=== PATIENT | male | born 1975 | race Hispanic/Latino ===

== ENCOUNTER 2019-05-04 13:02 | Emergency (ER) | payer SELFPAY ==
[2019-05-04] MEDS ORDERED: DEXAMETHASONE 4 MG/ML VIAL ONE (13:29)
[2019-05-04 13:40] LABS: Absolute Lymphocytes (CBC) 1.5 K/uL (0.7-4.9); Basophils % 0.6 % (0-1.3); Eosinophils % 3.1 % (0-4.4); Hematocrit 37.3 % (39.6-49.0); Lymphocytes % 17.7 % (15.3-44.8); MPV 8.3 fL (7.6-11.3); Monocytes % 7.2 % (3.3-12.3); RBC Red Blood Cell Count 4.91 M/uL (4.33-5.43)
[2019-05-04 13:48] LABS: BUN Blood Urea Nitrogen 9 mg/dL (7-18); Bicarbonate 27 mmol/L (21-32); Glucose Level 110 mg/dL (74-106); Sodium Level 138 mmol/L (136-145)
--- NOTE | 2019-05-04 14:20 | RAD REPORT ---
EXAM DESCRIPTION: CT - Soft Tissue Neck W/Contr - 05/04/2019 2:07 pm CLINICAL HISTORY: Sore throat, right-sided neck pain TECHNIQUE: During dynamic enhancement using 100 milliliters nonionic IV contrast, axial 5 millimeter thick images of the neck were obtained. All CT scans are performed using dose optimization technique as appropriate and may include automated exposure control or mA/KV adjustment according to patient size. FINDINGS: Intracranial portion the examination is unremarkable. No globe or orbital content abnormal ity. Mastoid air cells and paranasal sinuses are clear. There is significant right deviation of the n karly septum narrowing the anterior margin right nasal passage. The right tonsil is enlarged. The superior aspect of the right tonsil contains a 14 millimeter rounde d low-density focus. Left tonsil is grossly normal in size. No tongue base abnormality. Epiglottis is normal. Pharyngeal soft tissues on the right are mildly prominent. Bilateral nonspecific cervical lymph nodes are present up to 12 mm in short axis dimension. Most lymp h nodes have a less than 1 centimeter short axis dimension. The parotid, submandibular and thyroid gland tissues are present. No vocal cord abnormality. No bone or vascular abnormality. IMPRESSION: Approximately 14 millimeter sized tonsillar abscess in the superior aspect of the right tonsil. Bilateral reactive type cervical lymphadenopathy.
--- NOTE | 2019-05-04 15:12 | ER ---
Nurse's Notes [facility] Name: John Hendrcikson Age: 44 yrs Sex: Male : 1975 Arrival Date: 05/04/2019 Time: 13:04 Bed 14 Private MD: Diagnosis: Peritonsillar abscess Presentation: 05/04 13:04 Presenting complaint: Patient states: Sore throat for 3 days with more swelling to aj right side of throat. Transition of care: patient was not received from another setting of care. Onset of symptoms was May 01, 2019. Risk Assessment: Do you want to hurt yourself or someone else? Patient reports no desire to harm self or others. Initial Sepsis Screen: Does the patient meet any 2 criteria? No. Patient's initial sepsis screen is negative. Does the patient have a suspected source of infection? No. Patient's initial sepsis screen is negative. Care prior to arrival: None. 13:04 Method Of Arrival: EMS: [facility] 13:04 Acuity: JASVIR 3 aj Triage Assessment: 13:05 General: Appears in no apparent distress. uncomfortable, Behavior is calm, cooperative, aj appropriate for age. Pain: Complains of pain in left aspect of posterior pharynx and right aspect of posterior pharynx. EENT: Throat on right. Respiratory: Airway is patent Respiratory effort is even, unlabored, Respiratory pattern is regular, symmetrical. Derm: Skin is intact, is healthy with good turgor, Skin is pink, warm \T\ dry. normal. Historical: - Allergies: 13:05 Sulfa (Sulfonamide Antibiotics); aj - Immunization history:: Adult Immunizations up to date. - Social history:: Smoking status: Patient/guardian denies using tobacco. - Ebola Screening: : Patient negative for fever greater than or equal to 101.5 degrees Fahrenheit, and additional compatible Ebola Virus Disease symptoms Patient denies exposure to infectious person Patient denies travel to an Ebola-affected area in the 21 days before illness onset No symptoms or risks identified at this time. Screenin:31 Abuse screen: Denies threats or abuse. Denies injuries from another. Nutritional aj screening: No deficits noted. Tuberculosis screening: No symptoms or risk factors identified. Fall Risk None identified. Assessment: 13:31 Reassessment: Patient appears in no apparent distress at this time. No changes from aj previously documented assessment. Patient and/or family updated on plan of care and expected duration. Pain level reassessed. Patient is alert, oriented x 3, equal unlabored respirations, skin warm/dry/pink. Vital Signs: 13:05 BP 130 / 84; Pulse 83; Resp 16; Temp 98.6; Pulse Ox 98% on R/A; Weight 97.52 kg; Height aj 6 ft. 0 in. (182.88 cm); 15:10 BP 124 / 88; Pulse 78; Resp 16; Temp 98.6; Pulse Ox 99% ; aj 18:15 BP 131 / 78; Pulse 81; Resp 16; Pulse Ox 99% on R/A; aj 13:05 Body Mass Index 29.16 (97.52 kg, 182.88 cm) aj ED Course: 13:04 Patient arrived in ED. aj 13:05 Triage completed. aj 13:05 Arm band placed on left wrist. Patient placed in an exam room, on a stretcher, on pulse aj oximetry. 13:06 Allyson Medrano [facility]C [facility]. kb 13:07 Shorty Neely MD is Attending Physician. kb 13:11 Marlin Young, TIFFANY is Primary Nurse. aj 13:19 Radiology exam delayed due to lab results not completed at this time. (BUN/Creatinine). mw3 13:31 Patient has correct armband on for positive identification. aj 13:32 Inserted saline lock: 20 gauge in right wrist, using aseptic technique. Blood collected.aj 14:08 CT completed. Patient tolerated procedure well. Patient moved back from CT. bq 14:09 Soft Tissue Neck W/Contr CT In Process Unspecified. EDMS 14:44 initiated a transfer with Mabel from the [facility]. eb 15:02 connected the ENT components engineer for [facility] with Allyson BATTERY CONTAINER INSPECTOR for patient transfer eb constultation. 15:09 connected the network support engineer components engineer for [facility] with Allyson THOMAS for patient transfer eb consultation. 17:49 administrative approval given by Mabel Burroughs RN transfer coord/ patient has been eb accepted by Dr. Lind at the [facility] [address] [address] Bed 9/ report to be called to [phone]/. 18:15 Report given to Alexandria ALLEN. aj 18:15 No provider procedures requiring assistance completed. Patient transferred, IV remains aj in place. Administered Medications: 13:30 Drug: Decadron - Dexamethasone 10 mg Route: IVP; Site: right wrist; aj 16:17 Follow up: Response: Pain is decreased aj 15:42 Drug: NS 0.9% 1000 ml Route: IV; Rate: 125 ml/hr; Site: right wrist; aj 15:43 Drug: Rocephin 1 grams Route: IV; Rate: calculated rate; Site: right wrist; aj 15:45 Follow up: IV Status: Completed infusion; IV Intake: 10ml aj 15:43 Drug: Clindamycin 900 mg Route: IVPB; Infused Over: 30 mins; Site: right wrist; aj 16:18 Follow up: Response: No adverse reaction; IV Status: Completed infusion; IV Intake: 50mlaj Intake: 15:45 IV: 10ml; Total: 10ml. aj 16:18 IV: 50ml; Total: 60ml. aj Outcome: 15:11 ER care complete, transfer ordered by . kb 18:50 Transferred by ground EMS to [facility], Transfer form completed. aj X-rays sent w/ patient. 18:50 Condition: good 18:50 Discharge instructions given to patient, EMS, Instructed on the need for transfer. 18:51 Patient left the ED. aj Signatures: Dispatcher [employer] Allyson Negrete, MARIA EUGENIA CEDEÑOP-Marlin Sheth, RN RN Rody Sheriff Elizabeth eb Willis, Michelle mw3
--- NOTE | 2019-05-04 15:12 | EDPHYS ---
Physician Documentation [facility] Name: John Hendrickson Age: 44 yrs Sex: Male : 1975 Arrival Date: 05/04/2019 Time: 13:04 Bed 14 Private MD: ED Physician Shorty Neely HPI: 05/04 13:20 This 44 yrs old Male presents to ER via EMS with complaints of Sore Throat. kb 13:20 The patient presents with sore throat. The patient describes throat pain as constant. kb Onset: The symptoms/episode began/occurred 3 day(s) ago. Severity of symptoms: At their worst the symptoms were moderate, in the emergency department the symptoms are unchanged. Modifying factors: The symptoms are alleviated by nothing, the symptoms are aggravated by swallowing, Patient's oral intake status: good Denies contact with similarly ill indivduals. Associated signs and symptoms: Pertinent positives: earache, Sore throat. The patient has not experienced similar symptoms in the past. The patient has not recently seen a physician. Historical: - Allergies: 13:05 Sulfa (Sulfonamide Antibiotics); aj - Immunization history:: Adult Immunizations up to date. - Social history:: Smoking status: Patient/guardian denies using tobacco. - Ebola Screening: : Patient negative for fever greater than or equal to 101.5 degrees Fahrenheit, and additional compatible Ebola Virus Disease symptoms Patient denies exposure to infectious person Patient denies travel to an Ebola-affected area in the 21 days before illness onset No symptoms or risks identified at this time. ROS: 13:12 Constitutional: Negative for fever, chills, and weight loss, Cardiovascular: Negative kb for chest pain, palpitations, and edema, Respiratory: Negative for shortness of breath, cough, wheezing, and pleuritic chest pain, Abdomen/GI: Negative for abdominal pain, nausea, vomiting, diarrhea, and constipation, MS/Extremity: Negative for injury and deformity, Skin: Negative for injury, rash, and discoloration, Neuro: Negative for headache, weakness, numbness, tingling, and seizure. 13:12 ENT: Positive for ear pain, sore throat. Exam: 13:12 Constitutional: This is a well developed, well nourished patient who is awake, alert, kb and in no acute distress. Head/Face: Normocephalic, atraumatic. Chest/axilla: Normal chest wall appearance and motion. Nontender with no deformity. No lesions are appreciated. Cardiovascular: Regular rate and rhythm with a normal S1 and S2. No gallops, murmurs, or rubs. Normal PMI, no JVD. No pulse deficits. Respiratory: Lungs have equal breath sounds bilaterally, clear to auscultation and percussion. No rales, rhonchi or wheezes noted. No increased work of breathing, no retractions or nasal flaring. Abdomen/GI: Soft, non-tender, with normal bowel sounds. No distension or tympany. No guarding or rebound. No evidence of tenderness throughout. Skin: Warm, dry with normal turgor. Normal color with no rashes, no lesions, and no evidence of cellulitis. MS/ Extremity: Pulses equal, no cyanosis. Neurovascular intact. Full, normal range of motion. Neuro: Awake and alert, GCS 15, oriented to person, place, time, and situation. Cranial nerves II-XII grossly intact. Motor strength 5/5 in all extremities. Sensory grossly intact. Cerebellar exam normal. Normal gait. 13:12 ENT: External ear(s): are unremarkable, Ear canal(s): are normal, TM's: are normal, Nose: is normal, Mouth: Posterior pharynx: Airway: normal, no evidence of obstruction, Tonsils: enlarged on the right, with erythema, Uvula: normal, midline, swelling, that is moderate, erythema, that is moderate, exudate, is not appreciated, Dental exam: dental caries, diffusely. Vital Signs: 13:05 BP 130 / 84; Pulse 83; Resp 16; Temp 98.6; Pulse Ox 98% on R/A; Weight 97.52 kg; Height aj 6 ft. 0 in. (182.88 cm); 15:10 BP 124 / 88; Pulse 78; Resp 16; Temp 98.6; Pulse Ox 99% ; aj 18:15 BP 131 / 78; Pulse 81; Resp 16; Pulse Ox 99% on R/A; aj 13:05 Body Mass Index 29.16 (97.52 kg, 182.88 cm) aj MDM: 13:07 Patient medically screened. corrine 13:20 Data reviewed: vital signs, nurses notes. Data interpreted: Pulse oximetry: on room air kb is 98 %. Interpretation: normal. 14:42 Counseling: I had a detailed discussion with the patient and/or guardian regarding: the kb historical points, exam findings, and any diagnostic results supporting the discharge/admit diagnosis, lab results, radiology results, the need to transfer to another facility, for higher level of care, [facility]. ED course: Pt educated on diagnosis and need for transfer to facility that has ENT available. Verbal understanding received. . 15:08 ED course: Pt accepted by ENT at [facility]. Awaiting call from business objects consultant. . kb 15:11 ED course: Dr Lind accepts pt for transfer. . kb 05/04 13:08 Order name: CBC with Diff; Complete Time: 13:46 kb 05/04 13:08 Order name: Basic Metabolic Panel; Complete Time: 13:54 kb 05/04 13:08 Order name: Soft Tissue Neck W/Contr CT; Complete Time: 14:23 kb 05/04 13:08 Order name: Strep; Complete Time: 14:08 kb 05/04 14:12 Order name: Throat Culture EDLA 05/04 13:08 Order name: IV Start; Complete Time: 16:17 kb Administered Medications: 13:30 Drug: Decadron - Dexamethasone 10 mg Route: IVP; Site: right wrist; aj 16:17 Follow up: Response: Pain is decreased aj 15:42 Drug: NS 0.9% 1000 ml Route: IV; Rate: 125 ml/hr; Site: right wrist; aj 15:43 Drug: Rocephin 1 grams Route: IV; Rate: calculated rate; Site: right wrist; aj 15:45 Follow up: IV Status: Completed infusion; IV Intake: 10ml aj 15:43 Drug: Clindamycin 900 mg Route: IVPB; Infused Over: 30 mins; Site: right wrist; aj 16:18 Follow up: Response: No adverse reaction; IV Status: Completed infusion; IV Intake: 50mlaj Disposition: 05/04/19 15:[address] [facility]. Diagnosis is Peritonsillar abscess. - Reason for transfer: Higher level of care. - Accepting physician is Dr Lind. - Condition is Stable. - Problem is new. - Symptoms are unchanged. Addendum: 05/06/2019 09:42 Co-signature as Attending Physician, Shorty Chin MD I agree with the assessment and c boles plan of care. Signatures: Dispatcher [employer] Allyson Negrete, GAL-Juanjo CEDEÑOP-Marlin Sheth, RN RN Shorty Awad MD MD cha Corrections: (The following items were deleted from the chart) 05/04 14:27 13:12 ENT: External ear(s): are unremarkable, Ear canal(s): are normal, TM's: are kb normal, Nose: is normal, Mouth: Posterior pharynx: Airway: normal, no evidence of obstruction, swelling, that is moderate, erythema, that is moderate, exudate, is not appreciated, Dental exam: dental caries, diffusely, kb 18:51 15:11 05/04/2019 15:[address] [facility]. Diagnosis is aj Peritonsillar abscess. Reason for transfer: Higher level of care. Accepting physician is Dr Lind. Condition is Stable. Problem is new. Symptoms are unchanged. kb
[2019-05-04] MEDS ORDERED: NA CHLORIDE 0.9% 1,000 ML ONE (15:52)
[2019-05-04] MEDS ORDERED: CEFTRIAXONE/SWI 1gm 1 GM/10 ML SYR ONE (15:52)
[2019-05-04] MEDS ORDERED: CLINDAMYCIN 900MG/D5W 900 MG/50 ML IVPB IV ONE (15:52)
== END 2019-05-04 18:51 | disposition short-term general hospital (02) ==
LOC: ER 13:02
DX: J36 Peritonsillar abscess (principal); Z88.2 Allergy status to sulfonamides
CPT/HCPCS: 36415; 70491; 80048; 85025; 87070; 87081; 96365; 96375; 99285; J0696; J7030; Q9967

== ENCOUNTER 2021-11-20 13:47 | Emergency (ER) | payer SELFPAY ==
--- OUTSIDE RECORDS SUMMARY | 2021-11-20 13:52 | XMS REPORT | Continuity of Care Document ---
:1975 Author Organization [facility] t Address [address] [place] [address] Care Team Providers Name Role Phone PCP, DOES NOT HAVE A Primary Care Physician Unavailable CHRISTIE Attending Clinician Unavailable CHRISTIE Attending Clinician Unavailable Attending Clinician Unavailable Bingham DO Attending Clinician Tawanda THOMPSON, K.H. Attending Clinician TAWANDA K.H. Attending Clinician Unavailable AMMON DAO Attending Clinician Unavailable BINGHAM Admitting Clinician Unavailable Quinn NEFFHLakesha Admitting Clinician Unavailable AMMON DAO Admitting Clinician Unavailable Problems Condition Condition Condition Status Onset Resolution Last Treating Co mments Source Name Details Category Date Date Treatment Clinician Date Chest pain Chest pain Disease Active U nivers 9-27 ity of 00:00: [address] Obesity Obesity Disease Active Univers (BMI (BMI 9-27 ity of 30-39.9) 30-39.9) 00:00: [address] Branch Essential Essential Disease Active Uni vers hypertensi hypertensi - it y of on on 00:: [address] Family Family Disease Active Univers history of history of 08-09 it y of early CAD early CAD 00:00: [address] Branch Allergies, Adverse Reactions, Alerts Allergy Allergy Status Severity Reaction(s) Onset Inactive Treating Comm ents Source Name Type Date Date Clinician SULFA Drug Active Hives 2019-11 Univers (SULFONA Class 2-28 ity of MIDE 00:00: [place] ANTIBIOT Medical [facility]) Branch Sulfa Propensi Active Hives 2019-11 Univers (Sulfona ty to 2-28 ity of mide adverse 00:00: [place] Antibiot reaction 00 Medica l ics) s Branch Vancomyc Propensi Active Hives Univer s in ty to 4-09 ity of adverse 00:00: [place] reaction 00 Medical s Branch VANCOMYC DRUG Active Hives Univers IN INGREDI 4- ity of 00:00: [place] 00 Medical Branch Social History Social Habit Start Date Stop Date Quantity Comments Source Exposure to Unable to assess Univers ity of SARS-CoV-2 [facility] (event) [place] History of Chews Tobacco [facility] tobacco use [facility] Alcohol intake 2021-11-18 2021-11-18 Ex-drinker [facility] 00:00:00 00:00:00 (finding) [facility] Tobacco use and 2021-08-09 2021-08-09 Current user Univers ity of exposure 00:00:00 00:00:00 [facility] Sex Ass[birth year] Universit y of 00:00:00 00:00:00 [facility] Smoking Status Start Date Stop Date Source Never smoker [facility] Medications Ordered Filled Start Stop Current Ordering Indication Dosage Frequency Signature Comments Components Source Medication Medication Date Date Medication? Clinician (SIG) Name Name iopamidol 2020-11- No [id number] 106mL 106 mL, Univers (ISOVUE 11-30 Intravenou ity o f 370-500 mL) 15:15: 15:04 s, ONCE, 1 [place] injection 00 :00 dose, On Medica l 106 mL Elayne Branch 09/30/21 at 0915, Routine ketorolac 2020-11 Yes [id number] 10mg Take 1 U nivers 10 mg 0-27 tablet by ity of tablet 00:00: mouth [place] 00 every 6 Medical (six) Branch hours as needed for Pain (scale 7-10). ketorolac 2020-11 Yes [id number] 10mg Take 1 U nivers 10 mg 0-27 tablet by ity of tablet 00:00: mouth [place] 00 every 6 Medical (six) Branch hours as needed for Pain (scale 7-10). ketorolac 2020-11 Yes [id number] 10mg Take 1 U nivers 10 mg 0-27 tablet by ity of tablet 00:00: mouth [place] 00 every 6 Medical (six) Branch hours as needed for Pain (scale 7-10). ketorolac 2020-11 Yes [id number] 10mg Take 1 U nivers 10 mg 0-27 tablet by ity of tablet 00:00: mouth [place] 00 every 6 Medical (six) Branch hours as needed for Pain (scale 7-10). ketorolac 2020-11 Yes [id number] 10mg Take 1 U nivers 10 mg 0-27 tablet by ity of tablet 00:00: mouth [place] 00 every 6 Medical (six) Branch hours as needed for Pain (scale 7-10). ketorolac 2020-11 Yes [id number] 10mg Take 1 U nivers 10 mg 0-27 tablet by ity of tablet 00:00: mouth [place] 00 every 6 Medical (six) Branch hours as needed for Pain (scale 7-10). lisinopriL Yes [id number] 5mg Take 1 Univers 5 mg tablet 9-29 tablet by ity of 00:00: mouth [place] 00 daily. Medical Branch lisinopriL Yes [id number] 5mg Take 1 Univers 5 mg tablet 9-29 tablet by ity of 00:00: mouth [place] 00 daily. Medical Branch lisinopriL Yes [id number] 5mg Take 1 Univers 5 mg tablet 9-29 tablet by ity of 00:00: mouth [place] 00 daily. Medical Branch lisinopriL Yes [id number] 5mg Take 1 Univers 5 mg tablet 9-29 tablet by ity of 00:00: mouth [place] 00 daily. Medical Branch lisinopriL Yes [id number] 5mg Take 1 Univers 5 mg tablet 9-29 tablet by ity of 00:00: mouth [place] 00 daily. Medical Branch lisinopriL Yes [id number] 5mg Take 1 Univers 5 mg tablet 9-29 tablet by ity of 00:00: mouth [place] 00 daily. Medical Branch ferrous Yes [id number] 1{tbl} Take 1 U nivers fumarate-vi 9-28 tablet by ity of tamin C 200 00:00: mouth [place] mg (65 mg 00 daily. Medical iron)-25 mg Branch TbSR ferrous Yes [id number] 1{tbl} Take 1 U nivers fumarate-vi 9-28 tablet by ity of tamin C 200 00:00: mouth [place] mg (65 mg 00 daily. Medical iron)-25 mg Branch TbSR ferrous Yes [id number] 1{tbl} Take 1 U nivers fumarate-vi 9-28 tablet by ity of tamin C 200 00:00: mouth [place] mg (65 mg 00 daily. Medical iron)-25 mg Branch TbSR ferrous Yes [id number] 1{tbl} Take 1 U nivers fumarate-vi 9-28 tablet by ity of tamin C 200 00:00: mouth [place] mg (65 mg 00 daily. Medical iron)-25 mg Branch TbSR ferrous Yes [id number] 1{tbl} Take 1 U nivers fumarate-vi 9-28 tablet by ity of tamin C 200 00:00: mouth [place] mg (65 mg 00 daily. Medical iron)-25 mg Branch TbSR ferrous Yes [id number] 1{tbl} Take 1 U nivers fumarate-vi 9-28 tablet by ity of tamin C 200 00:00: mouth [place] mg (65 mg 00 daily. Medical iron)-25 mg Branch TbSR Vital Signs Vital Name Observation Time Observation Value Comments Source Heart rate 2021-11-18 17:00:00 55 /min [facility] Respiratory rate 2021-11-18 17:00:00 10 /min [facility] Systolic blood 2021-11-18 17:00:00 140 mm[Hg] [facility] sity of pressure [facility] Diastolic blood 2021-11-18 17:00:00 81 mm[Hg] [facility] pressure [facility] Oxygen saturation in 2021-11-18 16:00:00 95 /min [facility] Arterial blood by [facility] Pulse oximetry Branch Body temperature 2021-11-18 14:36:00 37.11 Racheal [facility] Body weight 2021-11-18 14:36:00 142.883 kg [facility] BMI 2021-11-18 14:36:00 42.72 kg/m2 [facility] Systolic blood 2021-10-04 20:00:00 137 mm[Hg] Univer sity of pressure [facility] Diastolic blood 2021-10-04 20:00:00 73 mm[Hg] [facility] Heart rate 2021-10-04 20:00:00 55 /min [facility] Body temperature 2021-10-04 20:00:00 36.78 Racheal [facility] 2021-10-04 20:00:00 12 /min [facility] Oxygen saturation in 2021-10-04 20:00:00 97 /min [facility] blood by [facility] Pulse oximetry [place] Body weight 2021-10-04 18:38:00 142.883 kg [facility] BMI 2021-10-04 18:38:00 42.72 kg/m2 [facility] Procedures Procedure Date / Time Performing Clinician Source Performed TROPONIN I 2021-11-18 16:38:00 Singer [facility] XR CHEST 1 VW 2021-11-18 15:21:00 Singer [facility] LIPASE 2021-11-18 14:48:00 Singer [facility] MAGNESIUM 2021-11-18 14:48:00 Singer [facility] TROPONIN I 2021-11-18 14:48:00 Singer [facility] COMP. METABOLIC PANEL 2021-11-18 14:48:00 Renetta Bingham [facility] ([id number]) [facility] CBC WITH DIFF 2021-11-18 14:48:00 Singer [facility] PROTHROMBIN TIME / INR 2021-11-18 14:48:[address] [facility] N-TERMINAL PRO-BNP 2021-11-18 14:48:00 Renetta Bingham [facility] CONSENT/REFUSAL FOR 2021-11-18 14:25:48 Doctor Unassigned, No Un [facility] DIAGNOSIS AND TREATMENT Name Medical Branch XR CHEST 1 VW 2021-10-04 19:00:09 [facility] 2021-10-04 18:41:00 Singer [facility] TROPONIN I 2021-10-04 18:41:00 Singer [facility] COMP. METABOLIC PANEL 2021-10-04 18:41:00 Renetta Bingham [facility] ([id number]) Medical [place] CBC WITH DIFF 2021-10-04 18:41:00 Singer [facility] N-TERMINAL PRO-BNP 2021-10-04 18:41:00 Renetta Bingham [facility] CT ANGIOGRAPHY 2021-09-30 20:41:31 Zan Neff [facility] CORONARIES WITH CARDIAC [facility] Branch CALCIUM SCORE NOTICE OF PRIVACY 2021-09-30 14:30:59 Doctor Unassigned, No [facility] PRACTICES Name [facility] CONSENT/REFUSAL FOR 2021-09-30 14:30:39 Doctor Unassigned, No [facility] DIAGNOSIS AND TREATMENT [facility] ASSIGNMENT OF BENEFITS 2021-09-30 14:30:19 Doctor Unassigned, No General acute hospital Encounters Start End Encounter Admission Attending Care Care Encounter Source Date/Time Date/Time Type Type Clinicians Facility Department ID 2021-12-10 2021-12-10 Outpatient R CARLOS EDUARDO SORIANO [facility] [id number] Univers 14:30:00 14:30:00 CARLOS EDUARDO SORIANO [id number] i ty of [facility] 2021-11-18 2021-11-18 Emergency X SINGER [facility] ERT [id number] Univers 08:44:00 11:59:00 RENETTA weeks [facility] 2021-11-18 2021-11-18 Emergency Singer [facility] [id number] Univers 08:44:00 11:59:00 Renetta ALDANA [id number] i ty of [place] 4.2.7.2.686 [facility] [id number] [facility] 084 Branch 2021-10-04 2021-10-04 Emergency X SINGER [facility] ERT [id number] Univers 12:35:00 14:13:00 RENETTA weeks [facility] 2021-10-04 2021-10-04 Emergency Bingham, [facility] [id number] Univers 12:35:00 14:13:00 Renetta ALDANA [id number] i ty of [place] [facility] 4.2.7.2.686 [place] [id number] [facility] 084 Branch 2021-10-01 2021-10-01 [facility] [id number] Univers 00:00:00 00:00:00 Sendil K.HLakesha HEALTH [id number] ity of [place]2.686 [place] [id number] [place] [id number] Branch OFFICE BUILDING 2021-09-30 2021-09-30 Outpatient R TAWANDA [facility] [id number] Univers 08:36:25 23:59:00 SENDIL ity of [facility] 2021-09-30 2021-09-30 [facility] [id number] Univers 08:36:25 23:59:00 Encounter Zan ALDANA [id number] ity of [place] 4.2.7.2.686 [facility] [id number] [facility] 801 Branch 2021-09-30 2021-09-30 Outpatient R TAWANDA [facility] [id number] Univers 09:00:00 09:00:00 SENDIL [id number] ity of [facility] 2021-09-24 2021-09-24 [place] [facility] [id number] Univers 00:00:00 00:00:00 Zan ALDANA [id number] ity of [place] [facility] [id number] [id number] Ms dical [facility] Branch BUILDING 2021-09-23 2021-09-23 [place] [facility] [id number] Univers 00:00:00 00:00:00 Zan ALDANA [id number] ity of [place] [facility] 4.2.7.2.686 [place] [id number] Ms dical NAL 059 Branch [facility] Results Test Description Test Time Test Comments Results Result Comments Source TROPONIN I 2021-11-18 17:25:59 Test Item Value Reference Range Interpretation Comme nts TROPONIN I (test code = 0.002 ng/mL See_Comment [Au tomated message] The 2514731784) system which ge nerated this result tra nsmitted reference range : <=0.034. The reference r parris was not used to int erpret this result as normal/abnormal . SONALI (test code = SONALI) Reference (Normal) Range (defined by the 99th percentile reference limit): <= 0.034 ng/mL Note: Cardiac troponin begins to rise 3-4 hours after the onset of ischemia. Repeat in 4-6 hours if the sample was drawn within 3-4 hours of the onset of the symptom and found normal. Diagnosis of myocardial injury is made with acute changes in cTn concentrations with at least one serial sample above the 99th percentile upper reference limit (URL), taken together with the patient's clinical presentation. Biotin has been reported to cause a negative bias, interpret results relative to patient's use of biotin. Lab Interpretation Normal (test code = 19696-8) [id number] 15:28:21 Test Item Value Reference Interpretation Comments Range TROPONIN I (test 0.025 ng/mL See_Comment [Automated code = 8462348103) message] The system which generated this result transmitted reference range : <=0.034. The reference range was not used to interpret this result as normal/abnormal . SONALI (test code = Reference (Normal) SONALI) Range (defined by the 99th percentile reference limit): <= 0.034 ng/mL Note: Cardiac troponin begins to rise 3-4 hours after the onset of ischemia. Repeat in 4-6 hours if the sample was drawn within 3-4 hours of the onset of the symptom and found normal. Diagnosis of myocardial injury is made with acute changes in cTn concentrations with at least one serial sample above the 99th percentile upper reference limit (URL), taken together with the patient's clinical presentation. Biotin has been reported to cause a negative bias, interpret results relative to patient's use of biotin. Lab Interpretation Normal (test code = 26373-3) [facility] [id number] 15:25:00 Test Item Value Reference Range Interpretation Comments NT-proBNP (test code 101 pg/mL See_Comment [Autom ated = 5231860421) message] The system which generated this result transmitted reference range : <=125. The reference range was not used to interpret this result as normal/abnormal . OSNALI (test code = SONALI) Biotin has been reported to cause a negative bias, interpret results relative to patient's use of biotin. Lab Interpretation Normal (test code = 49877-6) [facility]. METABOLIC PANEL ([id number])2021-11-18 15:17:21 Test Item Value Reference Range Interpretation Comments NA (test code = 135 mmol/L 135-145 5487338180) K (test code = 4.0 mmol/L 3.5-5.0 6910356453) CL (test code = 103 mmol/L 98-108 0244400571) CO2 TOTAL (test code = 26 mmol/L 23-31 4475872490) AGAP (test code = 2-16 6474659720) BUN (test code = 15 mg/dL 7-23 1444796476) GLUCOSE (test code = 124 mg/dL 70-110 H 6069750474) CREATININE (test code = 0.71 mg/dL 0.60-1.25 4784226327) TOTAL BILI (test code = 0.3 mg/dL 0.1-1.0 3799138007) CALCIUM (test code = 8.3 mg/dL 8.6-10.6 L 5228839962) T PROTEIN (test code = 7.4 g/dL 6.3-8.2 3079004932) ALBUMIN (test code = 3.9 g/dL 3.5-5.0 2572501037) ALK PHOS (test code = 136 U/L 34-122 H 5222521816) ALTv (test code = 21 U/L 5-50 1742-6) AST(SGOT) (test code = 23 U/L 13-40 4984141917) eGFR (test code = mL/min/1.73m2 0250129307) SONALI (test code = SONALI) Association of Glomerular Filtration Rate (GFR) and Staging of Kidney Disease* + --+ --+ ------+| GFR (mL/min/1.73 m2) ?| With Kidney Damage ?| ?Without Kidney Damage+ --------+ --------+ +| ?>90 ?| ?Stage one ?| ? Normal ?+ ---+ ---+ -------+| ?60-89 ?| ?Stage two ?| ? Decreased GFR ? + --+ --+ ------+| ?30-59 ?| ?Stage three ?| ? Stage three ? + --+ --+ ------+| ?15-29 ?| ?Stage four ? | ? Stage four ?+ ---+ ---+ -------+| ?<15 (or dialysis) ? ?| ?Stage five ? | ? Stage five ?+ ---+ ---+ -------+ *Each stage assumes the associated GFR level has been in effect for at least three months. ?Stages 1 to 5, with or without kidney disease, indicate chronic kidney disease. Notes: Determination of stages one and two (with eGFR >59mL/min/1.73 m2) requires estimation of kidney damage for at least three months as defined by structural or functional abnormalities of the kidney, manifested by either:Pathological abnormalities or Markers of kidney damage (including abnormalities in the composition of the blood or urine or abnormalities in imaging tests). Lab Interpretation Abnormal (test code = 38633-7) [facility] 15:17:21 Test Item Value Reference Range Interpretation Comments MAGNESIUM (test code = 2924341235) 1.7 mg/dL 1.7-2.4 Lab Interpretation (test code = Normal 33543-8) [facility] 15:17:01 Test Item Value Reference Range Interpretation Comments LIPASE (test code = 8144922129) 107 U/L 0-220 Lab Interpretation (test code = Normal 11822-1) [facility] WITH [id number] 15:13:20 Test Item Value Reference Range Interpretation Comments WBC (test code = See_Comment [Automated 6690-2) message] The sy stem which generated this result transmitted reference range : 4.20 - 10.70 10*3/?L. The reference range was not used to interpret this result as normal/abnormal . RBC (test code = See_Comment L [Automated 789-8) message] The sy stem which generated this result transmitted reference range : 4.26 - 5.52 10*6/?L. The reference range was not used to interpret this result as normal/abnormal . HGB (test code = 10.7 g/dL 12.2-16.4 L 718-7) HCT (test code = 33.8 % 38.4-49.3 L 4544-3) MCV (test code = 79.7 fL 81.7-95.6 L 787-2) MCH (test code = 25.2 pg 26.1-32.7 L 785-6) MCHC (test code = 31.7 g/dL 31.2-35.0 786-4) RDW-SD (test code = 38.3 fL 38.5-51.6 L 61976-1) RDW-CV (test code = 13.3 % 12.1-15.4 788-0) PLT (test code = See_Comment [Automated 777-3) message] The sy stem which generated this result transmitted reference range : 150 - 328 10*3/ ?L. The reference r parris was not used to interpret this result as normal/abnormal . MPV (test code = 9.7 fL 9.8-13.0 L 43326-3) NRBC/100 WBC (test See_Comment [Automat ed code = 7074957257) message] The system which generated this result transmitted reference range : 0.0 - 10.0 /100 WBCs. The refer ence range was not u sed to interpret th is result as normal/abnormal . NRBC x10^3 (test code <0.01 See_Comment [Auto mated = 8536493575) message] The s ystem which generated this result transmitted reference range : 10*3/?L. The reference range was not used to interpret this result as normal/abnormal . GRAN MAT (NEUT) % 55.4 % (test code = 770-8) IMM GRAN % (test code 0.40 % = 4143790980) LYMPH % (test code = 23.3 % 736-9) MONO % (test code = 13.1 % 5905-5) EOS % (test code = 7.3 % 713-8) BASO % (test code = 0.5 % 706-2) GRAN MAT x10^3(ANC) 3.05 10*3/uL 1.99-6.95 (test code = 4132321561) IMM GRAN x10^3 (test <0.03 0.00-0.06 code = 0536609176) LYMPH x10^3 (test code 1.28 10*3/uL 1.09-3.23 = 731-0) MONO x10^3 (test code 0.72 10*3/uL 0.36-1.02 = 742-7) EOS x10^3 (test code = 0.40 10*3/uL 0.06-0.53 711-2) BASO x10^3 (test code 0.03 10*3/uL 0.01-0.09 = 704-7) Lab Interpretation Abnormal (test code = 78742-4) [facility] / [id number] 15:12:20 Test Item Value Reference Range Interpretation Comments PROTIME PATIENT (test See_Comment [Auto mated message] code = 5964-2) The system wh ich generated this result transmitted ref erence range: 12.0 - 1 4.7 Seconds. The re ference range was not u sed to interpret this result as normal/abnor mal. INR (test code = 6301-6) Nor mal INR <1.1; Warfarin Therap eutic range 2.0 to 3. 0 or 2.5 to 3.5, dep ending upon the indica tions. Lab Interpretation (test Normal code = 47834-6) [facility] [id number] 19:54:55 Test Item Value Reference Interpretation Comments Range TROPONIN I (test 0.001 ng/mL See_Comment [Automated code = 5407986586) message] The system which generated this result transmitted reference range : <=0.034. The reference range was not used to interpret this result as normal/abnormal . SONALI (test code = Reference (Normal) SONALI) Range (defined by the 99th percentile reference limit): <= 0.034 ng/mL Note: Cardiac troponin begins to rise 3-4 hours after the onset of ischemia. Repeat in 4-6 hours if the sample was drawn within 3-4 hours of the onset of the symptom and found normal. Diagnosis of myocardial injury is made with acute changes in cTn concentrations with at least one serial sample above the 99th percentile upper reference limit (URL), taken together with the patient's clinical presentation. Biotin has been reported to cause a negative bias, interpret results relative to patient's use of biotin. Lab Interpretation Normal (test code = 51985-6) [facility] [id number] 19:51:52 Test Item Value Reference Range Interpretation Comments NT-proBNP (test code 110 pg/mL See_Comment [Autom ated = 8869520566) message] The system which generated this result transmitted reference range : <=125. The reference range was not used to interpret this result as normal/abnormal . SONALI (test code = SONALI) Biotin has been reported to cause a negative bias, interpret results relative to patient's use of biotin. Lab Interpretation Normal (test code = 69557-4) [facility] 19:44:37 Test Item Value Reference Range Interpretation Comments MAGNESIUM (test code = 1398765955) 1.9 mg/dL 1.7-2.4 Lab Interpretation (test code = Normal 40858-5) [facility] METABOLIC PANEL (98531)2021-10-04 19:44:16 Test Item Value Reference Range Interpretation Comments NA (test code = 138 mmol/L 135-145 6703947985) K (test code = 4.6 mmol/L 3.5-5.0 5806949426) CL (test code = 103 mmol/L 98-108 4425421833) CO2 TOTAL (test code = 27 mmol/L 23-31 5027276619) AGAP (test code = 2-16 1706554995) BUN (test code = 10 mg/dL 7-23 1673126776) GLUCOSE (test code = 110 mg/dL 70-110 0270382628) CREATININE (test code = 0.71 mg/dL 0.60-1.25 0278441639) TOTAL BILI (test code = 0.5 mg/dL 0.1-1.6 4009604767) CALCIUM (test code = 9.3 mg/dL 8.6-10.6 1084669603) T PROTEIN (test code = 8.0 g/dL 6.3-8.2 5901538699) ALBUMIN (test code = 4.4 g/dL 3.5-5.0 5834645806) ALK PHOS (test code = 141 U/L 34-122 H 4361860539) ALTv (test code = 18 U/L 5-50 1742-6) AST(SGOT) (test code = 24 U/L 13-40 4153585043) eGFR (test code = mL/min/1.73m2 5504220646) SONALI (test code = SONALI) Association of Glomerular Filtration Rate (GFR) and Staging of Kidney Disease* + --+ --+ ------+| GFR (mL/min/1.73 m2) ?| With Kidney Damage ?| ?Without Kidney Damage+ --------+ --------+ +| ?>90 ?| ?Stage one ?| ? Normal ?+ ---+ ---+ -------+| ?60-89 ?| ?Stage two ?| ? Decreased GFR ? + --+ --+ ------+| ?30-59 ?| ?Stage three ?| ? Stage three ? + --+ --+ ------+| ?15-29 ?| ?Stage four ? | ? Stage four ?+ ---+ ---+ -------+| ?<15 (or dialysis) ? ?| ?Stage five ? | ? Stage five ?+ ---+ ---+ -------+ *Each stage assumes the associated GFR level has been in effect for at least three months. ?Stages 1 to 5, with or without kidney disease, indicate chronic kidney disease. Notes: Determination of stages one and two (with eGFR >59mL/min/1.73 m2) requires estimation of kidney damage for at least three months as defined by structural or functional abnormalities of the kidney, manifested by either:Pathological abnormalities or Markers of kidney damage (including abnormalities in the composition of the blood or urine or abnormalities in imaging tests). Lab Interpretation Abnormal (test code = 09672-3) [facility] WITH [id number] 18:53:31 Test Item Value Reference Range Interpretation Comments WBC (test code = See_Comment [Automated 2690-2) message] The sy stem which generated this result transmitted reference range : 4.20 - 10.70 10*3/?L. The reference range was not used to interpret this result as normal/abnormal . RBC (test code = See_Comment [Automated 789-8) message] The sy stem which generated this result transmitted reference range : 4.26 - 5.52 10*6/?L. The reference range was not used to interpret this result as normal/abnormal . HGB (test code = 11.3 g/dL 12.2-16.4 L 718-7) HCT (test code = 36.8 % 38.4-49.3 L 4544-3) MCV (test code = 81.6 fL 81.7-95.6 L 787-2) MCH (test code = 25.1 pg 26.1-32.7 L 785-6) MCHC (test code = 30.7 g/dL 31.2-35.0 L 786-4) RDW-SD (test code = 40.4 fL 38.5-51.6 76184-3) RDW-CV (test code = 14.0 % 12.1-15.4 788-0) PLT (test code = See_Comment [Automated 777-3) message] The sy stem which generated this result transmitted reference range : 150 - 328 10*3/ ?L. The reference r parris was not used to interpret this result as normal/abnormal . MPV (test code = 10.0 fL 9.8-13.0 77432-4) NRBC/100 WBC (test See_Comment [Automat ed code = [id number]) message] The system which generated this result transmitted reference range : 0.0 - 10.0 /100 WBCs. The refer ence range was not u sed to interpret th is result as normal/abnormal . NRBC x10^3 (test code <0.01 See_Comment [Auto mated = [id number]) message] The s ystem which generated this result transmitted reference range : 10*3/?L. The reference range was not used to interpret this result as normal/abnormal . GRAN MAT (NEUT) % 64.6 % (test code = 770-8) IMM GRAN % (test code 0.30 % = 1106726947) LYMPH % (test code = 21.7 % 736-9) MONO % (test code = 7.5 % 5905-5) EOS % (test code = 5.4 % 713-8) BASO % (test code = 0.5 % 706-2) GRAN MAT x10^3(ANC) 3.86 10*3/uL 1.99-6.95 (test code = 5748475146) IMM GRAN x10^3 (test <0.03 0.00-0.06 code = 9633637460) LYMPH x10^3 (test code 1.30 10*3/uL 1.09-3.23 = 731-0) MONO x10^3 (test code 0.45 10*3/uL 0.36-1.02 = 742-7) EOS x10^3 (test code = 0.32 10*3/uL 0.06-0.53 711-2) BASO x10^3 (test code 0.03 10*3/uL 0.01-0.09 = 704-7) Lab Interpretation Abnormal (test code = 79866-8) [facility] [id number] 17:23:00 Test Item Value Reference Range Interpretation Comments CULTURE (BEAKER) A 3+ Beta-hem olytic (test code = streptococcus g roup 1095) F, by serologic al grouping GRAM STAIN 4+ WBCs RESULT (BEAKER) (test code = 1123) GRAM STAIN 2+ gram positive RESULT (BEAKER) rods (test code = 009683) GRAM STAIN 4+ gram positive RESULT (BEAKER) cocci in pairs (test code = and clusters 755756) BASIC METABOLIC [id number] 04:14:00 Test Item Value Reference Range Interpretation Comments SODIUM (BEAKER) 135 meq/L 136-145 L (test code = 381) POTASSIUM (BEAKER) 4.6 meq/L 3.5-5.1 (test code = 379) CHLORIDE (BEAKER) 103 meq/L 98-107 (test code = 382) CO2 (BEAKER) (test 25 meq/L 22-29 code = 355) BLOOD UREA NITROGEN 10 mg/dL 7-21 (BEAKER) (test code = 354) CREATININE (BEAKER) 0.83 mg/dL 0.57-1.25 (test code = 358) GLUCOSE RANDOM 183 mg/dL 70-105 H (BEAKER) (test code = 652) CALCIUM (BEAKER) 9.6 mg/dL 8.4-10.2 (test code = 697) EGFR (BEAKER) (test 100 mL/min/1.73 ESTIM ATED GFR IS code = 1092) sq m NOT ACCURATE CREATININE CLEARANCE IN PREDICTING GLOMERULAR FILTRATION RATE . ESTIMATED GFR I S NOT APPLICABLE FOR DIALYSIS PATIEN TS. [id number] 04:14:00 Test Item Value Reference Range Interpretation Comments MAGNESIUM (BEAKER) (test code = 2.2 mg/dL 1.6-2.6 627) CBC W/PLT COUNT & AUTO [id number] 03:55:00 Test Item Value Reference Range Interpretation Comments WHITE BLOOD CELL COUNT (BEAKER) 7.3 K/ L 3.5-10.5 (test code = 775) RED BLOOD CELL COUNT (BEAKER) 4.35 M/ L 4.63-6.08 L (test code = 761) HEMOGLOBIN (BEAKER) (test code = 10.5 GM/DL 13.7-17.5 L 410) HEMATOCRIT (BEAKER) (test code = 34.6 % 40.1-51.0 L 411) MEAN CORPUSCULAR VOLUME (BEAKER) 79.5 fL 79.0-92.2 (test code = 753) MEAN CORPUSCULAR HEMOGLOBIN 24.1 pg 25.7-32.2 L (BEAKER) (test code = 751) MEAN CORPUSCULAR HEMOGLOBIN CONC 30.3 GM/DL 32.3-36.5 L (BEAKER) (test code = 752) RED CELL DISTRIBUTION WIDTH 13.6 % 11.6-14.4 (BEAKER) (test code = 412) PLATELET COUNT (BEAKER) (test 315 K/CU MM 150-450 code = 756) MEAN PLATELET VOLUME (BEAKER) 10.1 fL 9.4-12.4 (test code = 754) NUCLEATED RED BLOOD CELLS 0 /100 WBC 0-0 (BEAKER) (test code = 413) NEUTROPHILS RELATIVE PERCENT 87 % (BEAKER) (test code = 429) LYMPHOCYTES RELATIVE PERCENT 11 % (BEAKER) (test code = 430) MONOCYTES RELATIVE PERCENT 2 % (BEAKER) (test code = 431) EOSINOPHILS RELATIVE PERCENT 0 % (BEAKER) (test code = 432) BASOPHILS RELATIVE PERCENT 0 % (BEAKER) (test code = 437) NEUTROPHILS ABSOLUTE COUNT 6.38 K/ L 1.78-5.38 H (BEAKER) (test code = 670) LYMPHOCYTES ABSOLUTE COUNT 0.81 K/ L 1.32-3.57 L (BEAKER) (test code = 414) MONOCYTES ABSOLUTE COUNT (BEAKER) 0.13 K/ L 0.30-0.82 L (test code = 415) EOSINOPHILS ABSOLUTE COUNT 0.00 K/ L 0.04-0.54 L (BEAKER) (test code = 416) BASOPHILS ABSOLUTE COUNT (BEAKER) 0.01 K/ L 0.01-0.08 (test code = 417) IMMATURE GRANULOCYTES-RELATIVE 0 % 0-1 PERCENT (BEAKER) (test code = 2801) RAD, CHEST, 1 VIEW, NON [id number] 23:11:00Reason for exam:->new admit hx asthma; high risk airway compromiseShould this be performed at the bedside?->YesFINAL REPORT Chest, 1 view. History: History of asthma. Comparison: None available. Findings: The cardiomediastinal silhouette and pulmonary vasculature are within normal limits for a portable exam. The lungs are clear without evidence of consolidation or effusion. The soft tissues and osseous structures are intact. IMPRESSION: No acute cardiopulmonary abnormality. Signed: Terell Buckner MDReport Verified Date/Time: 05/04/2019 23:11:15 [id number] 21:06:00 Test Item Value Reference Range Interpretation Comments PHOSPHORUS (BEAKER) (test code = 2.1 mg/dL 2.3-4.7 L 604) [id number] 21:06:00 Test Item Value Reference Range Interpretation Comments MAGNESIUM (BEAKER) (test code = 2.1 mg/dL 1.6-2.6 627) COMPREHENSIVE METABOLIC [id number] 21:06:00 Test Item Value Reference Range Interpretation Comments TOTAL PROTEIN 9.1 gm/dL 6.0-8.3 H (BEAKER) (test code = 770) ALBUMIN (BEAKER) 4.3 g/dL 3.5-5.0 (test code = 1145) ALKALINE PHOSPHATASE 148 U/L 40-150 (BEAKER) (test code = 346) BILIRUBIN TOTAL 0.3 mg/dL 0.2-1.2 (BEAKER) (test code = 377) SODIUM (BEAKER) (test 135 meq/L 136-145 L code = 381) POTASSIUM (BEAKER) 4.5 meq/L 3.5-5.1 (test code = 379) CHLORIDE (BEAKER) 102 meq/L 98-107 (test code = 382) CO2 (BEAKER) (test 26 meq/L 22-29 code = 355) BLOOD UREA NITROGEN 8 mg/dL 7-21 (BEAKER) (test code = 354) CREATININE (BEAKER) 0.86 mg/dL 0.57-1.25 (test code = 358) GLUCOSE RANDOM 140 mg/dL 70-105 H (BEAKER) (test code = 652) CALCIUM (BEAKER) 9.7 mg/dL 8.4-10.2 (test code = 697) AST (SGOT) (BEAKER) 18 U/L 5-34 (test code = 353) ALT (SGPT) (BEAKER) 19 U/L 6-55 (test code = 347) EGFR (BEAKER) (test 96 mL/min/1.73 ESTIMA VALENTIN GFR IS code = 1092) sq m NOT ACCURATE CREATININE CLEARANCE IN PREDICTING GLOMERULAR FILTRATION RATE . ESTIMATED GFR I S NOT APPLICABLE FOR DIALYSIS PATIEN TS. [id number] 21:00:00 Test Item Value Reference Range Interpretation Comments PROTIME (BEAKER) (test code = 14.8 seconds 11.9-14.2 H 759) INR (BEAKER) (test code = 370) 1.2 <=5.9 PARTIAL THROMBOPLASTIN TIME 39.2 seconds 22.5-36.0 H (BEAKER) (test code = 760) Effective 04/10/2019: PT Reference Range ChangeNew: 11.9-14.2 Previous: 11.7- 14.7RECOMMENDED COUMADIN/WARFARIN INR THERAPY RANGESSTANDARD DOSE: 2.0-3.0 Includes: PROPHYLAXIS for venous thrombosis, systemic embolization; TREATMENT for venous thrombosis and/or pulmonary embolus.HIGH RISK: Target INR is2.5-3.5 for patients wiht mechanical heart valves.CBC W/PLT COUNT & AUTO [id number] 20:56:00 Test Item Value Reference Range Interpretation Comments WHITE BLOOD CELL COUNT (BEAKER) 8.4 K/ L 3.5-10.5 (test code = 775) RED BLOOD CELL COUNT (BEAKER) 4.56 M/ L 4.63-6.08 L (test code = 761) HEMOGLOBIN (BEAKER) (test code = 11.2 GM/DL 13.7-17.5 L 410) HEMATOCRIT (BEAKER) (test code = 35.8 % 40.1-51.0 L 411) MEAN CORPUSCULAR VOLUME (BEAKER) 78.5 fL 79.0-92.2 L (test code = 753) MEAN CORPUSCULAR HEMOGLOBIN 24.6 pg 25.7-32.2 L (BEAKER) (test code = 751) MEAN CORPUSCULAR HEMOGLOBIN CONC 31.3 GM/DL 32.3-36.5 L (BEAKER) (test code = 752) RED CELL DISTRIBUTION WIDTH 13.8 % 11.6-14.4 (BEAKER) (test code = 412) PLATELET COUNT (BEAKER) (test 336 K/CU MM 150-450 code = 756) MEAN PLATELET VOLUME (BEAKER) 10.0 fL 9.4-12.4 (test code = 754) NUCLEATED RED BLOOD CELLS 0 /100 WBC 0-0 (BEAKER) (test code = 413) NEUTROPHILS RELATIVE PERCENT 90 % (BEAKER) (test code = 429) LYMPHOCYTES RELATIVE PERCENT 9 % (BEAKER) (test code = 430) MONOCYTES RELATIVE PERCENT 1 % (BEAKER) (test code = 431) EOSINOPHILS RELATIVE PERCENT 0 % (BEAKER) (test code = 432) BASOPHILS RELATIVE PERCENT 0 % (BEAKER) (test code = 437) NEUTROPHILS ABSOLUTE COUNT 7.55 K/ L 1.78-5.38 H (BEAKER) (test code = 670) LYMPHOCYTES ABSOLUTE COUNT 0.74 K/ L 1.32-3.57 L (BEAKER) (test code = 414) MONOCYTES ABSOLUTE COUNT (BEAKER) 0.10 K/ L 0.30-0.82 L (test code = 415) EOSINOPHILS ABSOLUTE COUNT 0.01 K/ L 0.04-0.54 L (BEAKER) (test code = 416) BASOPHILS ABSOLUTE COUNT (BEAKER) 0.02 K/ L 0.01-0.08 (test code = 417) IMMATURE GRANULOCYTES-RELATIVE 0 % 0-1 PERCENT (BEAKER) (test code = 2801)"
[2021-11-20] MEDS ORDERED: KETOROLAC 30 MG/ML INJ ONE (14:33)
[2021-11-20] MEDS ORDERED: HYDROCODONE/APAP 5/325 MG TAB ONE (14:33)
--- NOTE | 2021-11-20 14:35 | EDPHYS ---
Physician Documentation [facility] Name: John Hendrickson Age: 46 yrs Sex: Male : 1975 Arrival Date: 11/20/2021 Time: 13:50 Bed Waiting Private MD: ED Physician Shikha Park HPI: 11/20 14:29 This 46 yrs old Male presents to ER via Ambulatory with complaints of Chest ma2 wall pain. 14:29 The patient or guardian reports chest pain that is located primarily in the left ma2 lateral anterior chest. Onset:. Associated signs and symptoms: Pertinent negatives: cough, dizziness, lower extremity pain, lightheadedness, nausea, recent travel, shortness of breath, syncope. Severity of pain: At its worst the pain was mild in the emergency department the pain is unchanged. The patient has not experienced similar symptoms in the past. Patient has left-sided lateral chest wall pain, for 5 days constant, he is here for pain medication only, has he was discharged yesterday from [place] had full work-up for chest pain, he said they did EKGs chest x-ray troponin blood work, kept him overnight, and all work-up was negative, he said that he saw a dance critic there and has been evaluated and discharged. He does not want any further work-up. Patient has follow-up with the pulmonary doctor on the 12 of this month. Chest wall pain is on the left lateral side worse when he takes deep breath or move. Or he touches the chest wall on the left side, never had a heart issues or any medical issues.. Historical: - Allergies: 14:15 Sulfa (Sulfonamide Antibiotics); jg9 - PMHx: 14:15 Asthma; jg9 - Immunization history:: Client reports receiving the 2nd dose of the Covid vaccine, Client reports receiving the 1st dose of the Covid vaccine, Pneumococcal vaccine is up to date, Flu vaccine is up to date. - Social history:: Smoking status: Patient reports use of chewing tobacco. Patient/guardian denies using alcohol, street drugs, The patient lives with family. - Family history:: not pertinent. ROS: 14:29 Constitutional: Negative for fever, chills, and weight loss. ma2 14:29 All other systems are negative. Exam: 14:29 Constitutional: This is a well developed, well nourished patient who is awake, alert, ma2 and in no acute distress. Head/Face: Normocephalic, atraumatic. Eyes: Pupils equal round and reactive to light, extra-ocular motions intact. Lids and lashes normal. Conjunctiva and sclera are non-icteric and not injected. Cornea within normal limits. Periorbital areas with no swelling, redness, or edema. ENT: Nares patent. No nasal discharge, no septal abnormalities noted. Tympanic membranes are normal and external auditory canals are clear. Oropharynx with no redness, swelling, or masses, exudates, or evidence of obstruction, uvula midline. Mucous membranes moist. Neck: Trachea midline, no thyromegaly or masses palpated, and no cervical lymphadenopathy. Supple, full range of motion without nuchal rigidity, or vertebral point tenderness. No Meningismus. Chest/axilla: Patient has tenderness on left lateral chest, however skin is within normal limits there is no redness or sign of trauma. Normal chest wall appearance and motion. Nontender with no deformity. No lesions are appreciated. Cardiovascular: Regular rate and rhythm with a normal S1 and S2. No gallops, murmurs, or rubs. Normal PMI, no JVD. No pulse deficits. Respiratory: Lungs have equal breath sounds bilaterally, clear to auscultation and percussion. No rales, rhonchi or wheezes noted. No increased work of breathing, no retractions or nasal flaring. Abdomen/GI: Soft, non-tender, with normal bowel sounds. No distension or tympany. No guarding or rebound. No evidence of tenderness throughout. Back: No spinal tenderness. No costovertebral tenderness. Full range of motion. Skin: Warm, dry with normal turgor. Normal color with no rashes, no lesions, and no evidence of cellulitis. MS/ Extremity: Pulses equal, no cyanosis. Neurovascular intact. Full, normal range of motion. Neuro: Awake and alert, GCS 15, oriented to person, place, time, and situation. Cranial nerves II-XII grossly intact. Motor strength 5/5 in all extremities. Sensory grossly intact. Cerebellar exam normal. Normal gait. Vital Signs: 14:11 BP 117 / 96; Pulse 63; Resp 20 S; Temp 97.6(TE); Pulse Ox 100% on R/A; Weight 131.54 jg9 kg; Height 6 ft. 0 in. (182.88 cm) (R); 14:11 Body Mass Index 39.33 (131.54 kg, 182.88 cm) j9 MDM: 14:29 Differential diagnosis: Musculoskeletal pain, such as muscle sprain, costochondritis, ma2 versus contusion, versus other pulmonary condition, unlikely PE, or ACS. Patient is a 46-year-old male had full work-up just discharged from [place], seen by dance critic and referred to a pulmonary doctor. For further evaluation of cause of pain. Given we do not have a prior visit of this patient. I recommended work-up includes chest x-ray troponin, however patient does not want any work-up to be done here. He just wanted medicine to make him feel better as he does not have any pain medicine at home other than Tylenol and ibuprofen. I gave return precaution to ER that included any new pain, substernal chest pain or cough or any new symptoms. Data reviewed: vital signs, nurses notes, EMS record. Counseling: I had a detailed discussion with the patient and/or guardian regarding: the historical points, exam findings, and any diagnostic results supporting the discharge/admit diagnosis, the presence of at least one elevated blood pressure reading (>120/80) during this emergency department visit, the need for outpatient follow up. 14:34 Patient medically screened. il2 11/20 14:18 Order name: EKG; Complete Time: 14:19 [facility] Administered Medications: 14:33 Drug: Ketorolac 60 mg Route: IM; Site: left vastus lateralis; jg9 14:37 Follow up: Response: Medication administered at discharge. jg9 14:38 Follow up: Response: No adverse reaction j9 14:34 Drug: HYDROcodone-acetaminophen 5 mg-325 mg 1 tabs Route: PO; jg9 14:37 Follow up: Response: Medication administered at discharge. jg9 14:38 Follow up: Response: No adverse reaction jg9 Disposition Summary: 11/20/21 14:34 Discharge Ordered Location: Home ma2 Condition: Stable ma2 Diagnosis - Chest pain on breathing - Left lateral chest wall pain il2 Followup: ma2 - With: Private Physician - When: Tomorrow - Reason: Continuance of care Discharge Instructions: - Discharge Summary Sheet ma2 - Chest Wall Pain ma2 Forms: - Medication Reconciliation Form ma2 - Thank You Letter ma2 - Antibiotic Education ma2 - Prescription Opioid Use ma2 Prescriptions: - Diclofenac Sodium 75 mg Oral Tablet Sustained Release - take 1 tablet by ORAL route 2 times per day; 30 tablet; Refills: 0, Product ma2 Selection Permitted Signatures: Dispatcher [employer] [facility] Xu Shah PA PA jmm Alzahri, Mohammad, MD MD ma2 Bonny Flores RN RN jg9 Corrections: (The following items were deleted from the chart) 14:33 14:19 BASIC METABOLIC PANEL+C.LAB.BRZ ordered. EDME EDMS 14:33 14:19 CBC+H.LAB.BRZ ordered. [facility] EDME 14:34 14:18 EKG - Nurse/Tech ordered. neda jg9 14:34 14:19 HEPATIC FUNCTION+C.LAB.BRZ ordered. EDME EDME 14:34 14:19 MAGNESIUM+C.LAB.BRZ ordered. EDME EDMS 14:34 14:19 PROBNP+C.LAB.BRZ ordered. EDME EDMS 14:34 14:19 PROTIME (+INR)+COAG.LAB.BRZ ordered. EDME EDMS 14:34 14:19 TROPONIN (EMERG DEPT USE ONLY)+C.LAB.BRZ ordered. [facility] EDMS 14:34 14:29 Differential diagnosis: Musculoskeletal pain, such as muscle sprain, ma2 costochondritis, versus contusion, versus other pulmonary condition, unlikely PE, or ACS. Patient is a 46-year-old male had full work-up just discharged from [place], seen by dance critic and referred to a pulmonary doctor. For further evaluation of cause of pain. Given we do not have a prior visit of this patient. I recommended work-up includes chest x-ray troponin, however patient does not want any work-up to be done here. He just wanted medicine to make him feel better as he does not have any pain medicine at home other than Tylenol and ibuprofen. And he declined my recommendation of work-up in the ER. [facility] 14:35 14:18 Cardiac monitoring ordered. anirudh jg9 14:35 14:18 IV Saline Lock ordered. anirudh garciag9 14:35 14:18 Labs collected and sent ordered. anirudh jg9 :35 14:18 Oxygen Per Protocol ordered. anirudh jg9 : 14:18 O2 Sat Monitoring ordered. anirudh jg9
--- NOTE | 2021-11-20 14:35 | ER ---
Nurse's Notes [facility] Name: John Hendrickson Age: 46 yrs Sex: Male : 1975 Arrival Date: 11/20/2021 Time: 13:50 Bed Waiting Private MD: Diagnosis: Chest pain on breathing-Left lateral chest wall pain Presentation: 11/20 14:11 Chief complaint: Patient states: I have been having this chest pain since but jg9 it's getting worse, pain is 8/10 and sometimes I feel dizzy but I don't know if that is because I am nervous or what. Coronavirus screen: Vaccine status: Patient reports receiving the 2nd dose of the covid vaccine. Patient reports receiving the 1st dose of the Covid vaccine. Ebola Screen: Patient negative for fever greater than or equal to 101.5 degrees Fahrenheit, and additional compatible Ebola Virus Disease symptoms Patient denies exposure to infectious person. Patient denies travel to an Ebola-affected area in the 21 days before illness onset. Initial Sepsis Screen: Does the patient meet any 2 criteria? No. Patient's initial sepsis screen is negative. Does the patient have a suspected source of infection? No. Patient's initial sepsis screen is negative. Risk Assessment: Do you want to hurt yourself or someone else? Patient reports no desire to harm self or others. Onset of symptoms is unknown. 14:11 Method Of Arrival: Ambulatory 9 14:11 Acuity: JASVIR 4 jg9 Triage Assessment: 14:15 General: Appears uncomfortable, Behavior is calm, appropriate for age. Pain: Complains jg9 of pain in chest-left flank/rib radiating up and across to the right chest. Cardiovascular: Reports chest pain, since 11/18/21. Historical: - Allergies: 14:15 Sulfa (Sulfonamide Antibiotics); jg9 - PMHx: 14:15 Asthma; jg9 - Immunization history:: Client reports receiving the 2nd dose of the Covid vaccine, Client reports receiving the 1st dose of the Covid vaccine, Pneumococcal vaccine is up to date, Flu vaccine is up to date. - Social history:: Smoking status: Patient reports use of chewing tobacco. Patient/guardian denies using alcohol, street drugs, The patient lives with family. - Family history:: not pertinent. Screenin:15 Abuse screen: Denies threats or abuse. Denies injuries from another. Nutritional jg9 screening: No deficits noted. Tuberculosis screening: No symptoms or risk factors identified. Fall Risk None identified. Vital Signs: 14:11 BP 117 / 96; Pulse 63; Resp 20 S; Temp 97.6(TE); Pulse Ox 100% on R/A; Weight 131.54 jg9 kg; Height 6 ft. 0 in. (182.88 cm) (R); 14:11 Body Mass Index 39.33 (131.54 kg, 182.88 cm) jg9 ED Course: 13:50 Patient arrived in ED. as 14:03 Xu Shah [facility] anirudh 14:03 Shikha Park MD is Attending Physician. anirudh 14:14 Triage completed. jg9 14:16 Patient has correct armband on for positive identification. jg9 Administered Medications: 14:33 Drug: Ketorolac 60 mg Route: IM; Site: left vastus lateralis; jg9 14:37 Follow up: Response: Medication administered at discharge. jg9 14:38 Follow up: Response: No adverse reaction jg9 14:34 Drug: HYDROcodone-acetaminophen 5 mg-325 mg 1 tabs Route: PO; jg9 14:37 Follow up: Response: Medication administered at discharge. jg9 14:38 Follow up: Response: No adverse reaction jg9 Outcome: 14:34 Discharge ordered by . [facility] 14:37 Patient left the ED. jg9 Signatures: Xu Shah PA PA jmm Martinez, Amelia as Shikha Park MD MD coBonny Alcantara RN RN jg9 Corrections: (The following items were deleted from the chart) 14:22 14:11 Acuity: JASVIR 3 jg9 jg9
[2021-11-20 14:43] VITALS: BP 117/96; TEMP 97.6; O2SAT 100
== END 2021-11-20 14:37 | disposition home or self-care (01) ==
LOC: ER 13:47
DX: R07.1 Chest pain on breathing (principal)
CPT/HCPCS: 96372; 99282

== ENCOUNTER 2022-04-14 13:05 | Inpatient (IN) | payer SELFPAY ==
--- OUTSIDE RECORDS SUMMARY | 2022-04-14 13:08 | XMS REPORT | Continuity of Care Document ---
:1975 Author Organization [facility] t Address [address] [place] [address] Care Team Providers Name Role Phone PCP, DOES NOT HAVE A Primary Care Physician Unavailable CAMRON R Attending Clinician Unavailable Marisol Ramirez Attending Clinician Doctor Unassigned, Name Attending Clinician Unavailable CHRISTIE Attending Clinician Unavailable CHRISTIE Attending Clinician Unavailable Christie BERGER Attending Clinician MARANDA Attending Clinician Unavailable AMMON DAO Attending Clinician Unavailable Marisol LYON Admitting Clinician Unavailable MARANDA Admitting Clinician Unavailable AMMON DAO Admitting Clinician Unavailable Problems Condition Condition Condition Status Onset Resolution Last Treating Co mments Source Name Details Category Date Date Treatment Clinician Date Dyslipidem Dyslipidem Disease Active U nivers ia ia 1-21 ity of 00:: [address] COVID-19 COVID-19 Disease Active Unive rs 1-14 ity of 00:: [address] Atypical Atypical Disease Active Unive rs chest pain chest pain 9-27 it y of 00:: [address] Obesity Obesity Disease Active Univers (BMI (BMI 9-27 ity of 30-39.9) 30-39.9) 00:00: [address] Essential Essential Disease Active Uni vers hypertensi hypertensi 9-27 it y of on on 00:: [address] Family Family Disease Active Univers history of history of 9-27 [place] of [place] CAD [place] Allergies, Adverse Reactions, Alerts Allergy Allergy Status Severity Reaction(s) Onset Inactive Treating Comm ents Source Name Type Date Date Clinician SULFA Drug Active Hives 2019-11 Univers (SULFONA Class 2-28 ity of MIDE 00:00: [place] ANTIBIOT 00 Medical ICS) Branch Sulfa Propensi Active Hives 2019-11 Univers (Sulfona ty to 2-28 ity of mide adverse 00:00: [place] Antibiot reaction 00 Medica l ics) s Branch Sulfa Propensi Active Hives 2019-11 Univers (Sulfona ty to 2-28 ity of mide adverse 00:00: [place] Antibiot reaction 00 Medica l ics) s Branch Vancomyc Propensi Active Hives Univer s in ty to 4-09 ity of adverse 00:00: [place] reaction 00 Medical s Branch VANCOMYC DRUG Active Hives Univers IN INGREDI 4-09 ity of 00:00: [place] 00 Medical Branch Social History Social Habit Start Date Stop Date Quantity Comments Source History of Chews Tobacco University of tobacco use [facility] Exposure to 2022-03-26 2022-04-05 Not sure [facility] SARS-CoV-2 00:00:00 15:40:00 [facility] (event) [place] Alcohol intake 2022-04-05 2022-04-05 Ex-drinker [facility] 00:00:00 00:00:00 (finding) [facility] Tobacco use and 2021-08-09 2021-08-09 Former user Universi ty of exposure 00:00:00 00:00:00 [facility] Sex Assigned At [birth year] Universit y of 00:00:00 00:00:00 [facility] Smoking Status Start Date Stop Date Source Never smoker [facility] Medications Ordered Filled Start Stop Current Ordering Indication Dosage Frequency Signature Comments Components Source Medication Medication Date Date Medication? Clinician (SIG) Name Name iopamidol 2021- No [id number] 100mL 100 mL, Univers (ISOVUE 04-05 Intravenou ity o f 370-500 mL) 23:30: 22:14 s, ONCE, 1 [place] injection 00 :00 dose, On Medica l 100 mL e [place] 04/05/22 at 1830, Routine aspirin 2021- No 325mg 325 mg, Unive rs E.C. 04-05 Oral, ity of (ECOTRIN) 22:15: 21:17 ONCE, [place] tablet 325 00 :00 dose, On Medic al mg Tue Branch 04/05/22 at 1715, STAT ketorolac Yes [id number] 10mg Take 1 U nivers 10 mg 1-28 tablet by ity of tablet 00:00: mouth [place] 00 every 6 Medical (six) Branch hours as needed for Pain (scale 4-6) or Pain (scale 7-10). ketorolac Yes [id number] 10mg Take 1 U nivers 10 mg 1-28 tablet by ity of tablet 00:00: mouth [place] 00 every 6 Medical (six) Branch hours as needed for Pain (scale 4-6) or Pain (scale 7-10). ketorolac Yes [id number] 10mg Take 1 U nivers 10 mg 1-28 tablet by ity of tablet 00:00: mouth [place] 00 every 6 Medical (six) Branch hours as needed for Pain (scale 4-6) or Pain (scale 7-10). ketorolac Yes [id number] 10mg Take 1 U nivers 10 mg 1-28 tablet by ity of tablet 00:00: mouth [place] 00 every 6 Medical (six) Branch hours as needed for Pain (scale 4-6) or Pain (scale 7-10). diclofenac 2021- No 75mg Take 75 mg Univers 75 mg EC 11-20 by mouth 2 ity of tablet 00:00: 00:00 (two) [place] 00 :00 times Medical daily. Branch diclofenac 2021- No 75mg Take 75 mg Univers 75 mg EC 11-20 by mouth 2 ity of tablet 00:00: 00:00 (two) [place] 00 :00 times Medical daily. Branch Vital Signs Vital Name Observation Time Observation Value Comments Source Systolic blood 2022-04-05 23:00:00 160 mm[Hg] Univer sity of pressure [facility] Diastolic blood 2022-04-05 23:00:00 95 mm[Hg] Unive rsity of pressure [facility] Heart rate 2022-04-05 23:00:00 57 /min [facility] ty [facility] [place] [facility] Respiratory rate 2022-04-05 23:00:00 11 /min [facility] ersity of [facility] Oxygen saturation in 2022-04-05 23:00:00 96 /min University of Arterial blood by [facility] Pulse oximetry Branch Body temperature 2022-04-05 20:41:00 36.78 [place]al [facility] [place] [facility] [place] Body height 2022-04-05 20:41:00 182.9 cm [facility] [place] [facility] Body weight 2022-04-05 20:41:00 145.151 kg [facility] [place] [facility] BMI 2022-04-05 20:41:00 43.40 kg/m2 [facility] [place] [facility] Systolic blood 2021-12-10 20:12:00 154 mm[facility]Hg[facility] blood 2021-12-10 20:12:00 75 [facility]Hg[facility] 2021-12-10 20:12:00 74 /min [facility] [place] [facility] Respiratory rate 2021-12-10 20:08:00 22 /min [facility] [place] Body height 2021-12-10 20:08:00 182.9 cm [facility] [place] [facility] Body weight 2021-12-10 20:08:00 116.937 kg [facility] [place] [facility] BMI 2021-12-10 20:08:00 34.96 kg/m2 [facility] [place] [facility] Oxygen saturation in 2021-12-10 20:08:00 95 /min [place] of Arterial blood by [facility] Pulse oximetry [place] Procedures Procedure Date / Time Performed Performing Clinician Sour e CT CHEST PULMONARY 2022-04-05 22:20:00 Krystal Lyon [facility] ANGIOGRAM Medical Branch LIPASE 2022-04-05 21:16:00 Krystal Lyon [facility] TROPONIN I 2022-04-05 21:16:00 Krystal Lyon [address] [facility] COMP. METABOLIC PANEL 2022-04-05 21:16:00 Krystal Lyon [facility] ([id number]) [facility] CBC WITH DIFF 2022-04-05 21:16:00 Krystal Lyon [facility] D-DIMER 2022-04-05 21:16:00 Krystal Lyon [facility] N-TERMINAL PRO-BNP 2022-04-05 21:16:00 [facility] X[facility] CHEST 2 VW 2022-04-05 21:14:08 Krystal Lyon [facility] HB ECG ROUTINE & 2022-04-05 20:42:44 Krystal Lyon [facility] RHYTHM STRIP [facility] Branch NOTICE OF PRIVACY 2022-04-05 20:27:51 Doctor Unassigned, No Univ [facility] PRACTICES Name [facility] CONSENT/REFUSAL FOR 2022-04-05 20:27:36 Doctor Unassigned, No [facility] DIAGNOSIS AND Name [facility] TREATMENT Encounters Start End Encounter Admission Attending Care Care Encounter Source Date/Time Date/Time Type Type Clinicians Facility Department ID 2022-04-05 2022-04-05 Emergency X [facility] ERT [id number] Univers 15:42:00 18:10:00 KRYSTAL ity of [facility] 2022-04-05 2022-04-05 Emergency [facility] [id number] Univers 15:42:00 18:10:00 Krystal ALDANA [id number] i ty [facility] [id number] [facility] [id number] [facility] 084 Branch 2022-04-05 2022-04-05 Orders Doctor ARANGO [id number] Univers 00:00:00 00:00:00 Only Unassigned, JONATHAN [id number] ity of [place] [facility] [id number] [facility] 009 Branch 2021-12-10 2021-12-10 Outpatient R CARLOS EDUARDO SORIANO [facility] 10 [id number] Univers 14:30:00 15:42:03 CARLOS EDUARDO SORIANO i ty of [facility] 2021-12-10 2021-12-10 Office Christie [facility] [id number] Univers 14:30:00 15:00:00 Visit Carlos Eduardo ALDANA [id number] i [facility] [id number] Awa VER[id number] [facility] 2021-12-02 2021-12-03 Outpatient X MARANDA [facility] [id number] Univers 20:43:00 18:14:00 LUPIS weeks [facility] Results Test Description Test Time Test Comments Results Result Comments Source TROPONIN I 2022-04-05 21:55:35 Test Item Value Reference Range Interpretation Comme nts TROPONIN I (test code = 0.003 ng/mL See_Comment [Au tomated message] The 3223514048) system which ge nerated this result tra [...] biotin. Lab Interpretation Normal (test code = 89737-8) [id number] 21:52:38 Test Item Value Reference Range Interpretation Comments NT-proBNP (test code 89 pg/mL See_Comment [Autom ated = 4000852336) message] The system which generated this result transmitted reference range : <=125. The reference range was not used to interpret this result as normal/abnormal . SONALI (test code = SONALI) Biotin has been reported to cause a negative bias, interpret results relative to patient's use of biotin. Lab Interpretation Normal (test code = 10361-1) [facility] ([id number])2022-04-05 21:44:14 Test Item Value Reference Range Interpretation Comments NA (test code = 137 mmol/L 135-145 8039243422) K (test code = 5.1 mmol/L 3.5-5.0 H 8816752619) CL (test code = 102 mmol/L 98-108 6855529486) CO2 TOTAL (test code = 24 mmol/L 23-31 9426051267) AGAP (test code = 2-16 2199918783) BUN (test code = 16 mg/dL 7-23 6782107414) GLUCOSE (test code = 108 mg/dL 70-110 0242189133) CREATININE (test code = 0.75 mg/dL 0.60-1.25 8080388860) TOTAL BILI (test code = 0.5 mg/dL 0.1-1.0 5293425300) CALCIUM (test code = 9.1 mg/dL 8.6-10.6 5966507683) T PROTEIN (test code = 8.5 g/dL 6.3-8.2 H 5317357553) ALBUMIN (test code = 4.6 g/dL 3.5-5.0 2182723581) ALK PHOS (test code = 152 U/L 34-122 H 1663644548) ALTv (test code = 20 U/L 5-50 1742-6) AST(SGOT) (test code = 26 U/L 13-40 2078173572) eGFR (test code = mL/min/1.73m2 1029692879) SONALI (test code = SONALI) Association of [...] tests). Lab Interpretation Abnormal (test code = 91197-6) [facility] 21:43:34 Test Item Value Reference Range Interpretation Comments LIPASE (test code = 1251109398) 48 U/L 0-220 Lab Interpretation (test code = Normal 49024-5) [id number][id number] 21:41:12 Test Item Value Reference Interpretation Comments Range D-DIMER (test code = See_Comment H [Autom ated 2104746576) message] The system which generated this result transmitted reference range : <0.41 ?g/mL (FEU). The reference range was not used to interpret this result as normal/abnormal . SONALI (test code = This test may be SONALI) used in conjunction with a clinical pretest probability (PTP) assessment model to exclude venous thromboembolism (VTE) in patients suspected of deep venous thrombosis (DVT) and pulmonary embolism (PE) A D-Dimer value less than 0.50 ?g/ml (FEU) has a negative predicative value of 96 to 100% (95% CI)and 97 to 100% (95% CI) as an aid in the diagnosis of deep vein thrombosis (DVT) and pulmonary embolism when there is low or moderate pretest probability of PE or DVT. D-Dimer values are expressed in initial fibrinogen equivalent units (FEU)" The assay results should be used with other information, including the clinical context, in forming a diagnosis. Lab Interpretation Abnormal (test code = 39592-3) [facility] WITH [id number] 21:32:30 Test Item Value Reference Range Interpretation Comments [...] as normal/abnormal . HGB (test code = 11.7 g/dL 12.2-16.4 L 718-7) HCT (test code = 37.4 % 38.4-49.3 L 4544-3) MCV (test code = 79.1 fL 81.7-95.6 L 787-2) MCH (test code = 24.7 pg 26.1-32.7 L 785-6) MCHC (test code = 31.3 g/dL 31.2-35.0 786-4) RDW-SD (test code = 37.8 fL 38.5-51.6 L 96142-9) RDW-CV (test code = 13.2 % 12.1-15.4 788-0) PLT (test code = See_Comment [Automated 777-3) message] The sy stem which generated this result transmitted reference range : 150 - 328 10*3/ ?L. The reference r parris was not used to interpret this result as normal/abnormal . MPV (test code = 9.6 fL 9.8-13.0 L 64497-1) NRBC/100 WBC (test See_Comment [Automat ed code = 4729187737) message] The system which generated this result transmitted reference range : 0.0 - 10.0 /100 WBCs. The refer ence range was not u sed to interpret th is result as normal/abnormal . NRBC x10^3 (test code <0.01 See_Comment [Auto mated = 0544165862) message] The s ystem which generated this result transmitted reference range : 10*3/?L. The reference range was not used to interpret this result as normal/abnormal . GRAN MAT (NEUT) % 70.3 % (test code = 770-8) IMM GRAN % (test code 0.30 % = 5501508401) LYMPH % (test code = 14.7 % 736-9) MONO % (test code = 8.7 % 5905-5) EOS % (test code = 5.4 % 713-8) BASO % (test code = 0.6 % 706-2) GRAN MAT x10^3(ANC) 4.45 10*3/uL 1.99-6.95 (test code = 2722667822) IMM GRAN x10^3 (test <0.03 0.00-0.06 code = 4804699171) LYMPH x10^3 (test code 0.93 10*3/uL 1.09-3.23 L = 731-0) MONO x10^3 (test code 0.55 10*3/uL 0.36-1.02 = 742-7) EOS x10^3 (test code = 0.34 10*3/uL 0.06-0.53 711-2) BASO x10^3 (test code 0.04 10*3/uL 0.01-0.09 = 704-7) Lab Interpretation Abnormal (test code = 51828-0) [facility] HospitalW[facility] CULTURE + GRAM [id number] 17:23:00 Test Item Value Reference Range Interpretation Comments CULTURE (BEAKER) A 3+ Beta-hem olytic (test code = streptococcus g roup 1095) F, by serologic al grouping GRAM STAIN 4+ WBCs RESULT (BEAKER) (test code = 1123) GRAM STAIN 2+ gram positive RESULT (BEAKER) rods (test code = 015343) GRAM STAIN 4+ gram positive RESULT (BEAKER) cocci in pairs (test code = and clusters 154405) BASIC METABOLIC [id number] 04:14:00 Test Item Value Reference Range Interpretation [...] S NOT APPLICABLE FOR DIALYSIS PATIEN TS. [id number] 04:14:00 Test Item Value Reference Range Interpretation Comments MAGNESIUM (BEAKER) (test code = 2.2 mg/dL 1.6-2.6 627) CBC W/PLT COUNT & AUTO [id number] 03:55:00 Test Item Value Reference Range Interpretation [...] = 2801) RAD, CHEST, 1 VIEW, NON [id number] 23:11:00Reason for exam:->new admit hx asthma; high [...] Terell Buckner MDReport Verified Date/Time: 05/04/2019 23:11:15 [id number] 21:06:00 Test Item Value Reference Range Interpretation Comments PHOSPHORUS (BEAKER) (test code = 2.1 mg/dL 2.3-4.7 L 604) [id number] 21:06:00 Test Item Value Reference Range Interpretation Comments MAGNESIUM (BEAKER) (test code = 2.1 mg/dL 1.6-2.6 627) COMPREHENSIVE METABOLIC [id number] 21:06:00 Test Item Value Reference Range Interpretation [...] S NOT APPLICABLE FOR DIALYSIS PATIEN TS. [id number] 21:00:00 Test Item Value Reference Range Interpretation [...] mechanical heart valves.CBC W/PLT COUNT & AUTO [id number] 20:56:00 Test Item Value Reference Range Interpretation [...]
[2022-04-14] MEDS ORDERED: FENTANYL CITR 100 MCG/2 ML ONE (13:41)
[2022-04-14] MEDS ORDERED: ONDANSETRON 4 MG/2 ML VIAL ONE (13:41)
[2022-04-14] MEDS ORDERED: ASPIRIN 81 MG CHEWABLE TABLET ONE (13:41)
[2022-04-14 13:45] LABS: Hematocrit 35.2 % (39.6-49.0); MCV 76.6 fL (80-100); MPV 7.6 fL (7.6-11.3)
[2022-04-14 14:04] LABS: Albumin 3.5 g/dL (3.4-5.0); Bilirubin Direct 0.1 mg/dL (0-0.2); Bilirubin Total 0.3 mg/dL (0.2-1.0); Potassium 4.6 mmol/L (3.5-5.1); Protein, Total 8.1 g/dL (6.4-8.2); Troponin High Sensitivity 6.4 pg/mL (<58.9)
[2022-04-14] MEDS ORDERED: NITROGLYCERIN 0.4 MG/TAB SL ONE (14:39)
--- NOTE | 2022-04-14 15:27 | EDPHYS ---
Physician Documentation [facility] Name: John Hendrickson Age: 46 yrs Sex: Male : 1975 Arrival Date: 04/14/2022 Time: 13:07 Bed 19 Private MD: ED Physician Shorty Neely HPI: 04/14 13:15 This 46 yrs old Male presents to ER via Ambulatory with complaints of Chest jh7 Pressure. 13:15 Onset: The symptoms/episode began/occurred acutely. Patient presents with severe jh7 left-sided chest pain stating "it feels like a horse is sitting on my chest". States that he has had this happen once before 6 months ago, and was told it was angina. States that the pain is much worse than last time and reports that it is 10 out of 10 pain. Reports that pain slightly diminishes with rest.. Historical: - Allergies: 13:11 Sulfa (Sulfonamide Antibiotics); tw2 13:11 Erythromycin; if IV, hives; tw2 - Home Meds: 13:11 None [Active]; tw2 - PMHx: 13:11 Asthma; tw2 - PSHx: 13:11 left knee; tw2 - Immunization history:: Client reports receiving the 2nd dose of the Covid vaccine. - Social history:: Smoking status: Patient reports use of chewing tobacco. ROS: 13:15 Constitutional: Negative for fever, chills, and weight loss, ENT: Negative for injury, jh7 pain, and discharge, Neck: Negative for injury, pain, and swelling, Respiratory: Negative for shortness of breath, cough, wheezing, and pleuritic chest pain, Abdomen/GI: Negative for abdominal pain, nausea, vomiting, diarrhea, and constipation, Back: Negative for injury and pain, Skin: Negative for injury, rash, and discoloration, Neuro: Negative for headache, weakness, numbness, tingling, and seizure. 13:15 Cardiovascular: Positive for chest pain, Negative for edema, orthopnea, palpitations. 13:15 All other systems are negative. Exam: 13:15 Eyes: Pupils equal round and reactive to light, extra-ocular motions intact. Lids and jh7 lashes normal. Conjunctiva and sclera are non-icteric and not injected. Cornea within normal limits. Periorbital areas with no swelling, redness, or edema. Neck: Trachea midline, no thyromegaly or masses palpated, and no cervical lymphadenopathy. Supple, full range of motion without nuchal rigidity, or vertebral point tenderness. No Meningismus. Respiratory: Lungs have equal breath sounds bilaterally, clear to auscultation and percussion. No rales, rhonchi or wheezes noted. No increased work of breathing, no retractions or nasal flaring. Abdomen/GI: Soft, non-tender, with normal bowel sounds. No distension or tympany. No guarding or rebound. No evidence of tenderness throughout. Back: No spinal tenderness. No costovertebral tenderness. Full range of motion. Skin: Warm, dry with normal turgor. Normal color with no rashes, no lesions, and no evidence of cellulitis. MS/ Extremity: Pulses equal, no cyanosis. Neurovascular intact. Full, normal range of motion. Neuro: Awake and alert, GCS 15, oriented to person, place, time, and situation. Motor strength 5/5 in all extremities. Sensory grossly intact. Normal gait. 13:15 Constitutional: The patient appears alert, awake, diaphoretic, uncomfortable. 13:15 Cardiovascular: Rate: bradycardic, actual rate is 56 bpm, Rhythm: regular, Pulses: Pulses are 2+ in right radial artery and left radial artery. Heart sounds: normal, normal S1and S2. Vital Signs: 13:09 BP 159 / 110; Pulse 63; Resp 19; Temp 98.4(TE); Pulse Ox 100% on R/A; Weight 115.67 kg tw2 (R); Height 6 ft. 0 in. (182.88 cm); Pain 9/10; 14:41 BP 168 / 70; Pulse 64; Resp 18 S; Pulse Ox 97% on R/A; jd3 15:41 BP 129 / 84; Pulse 51; Resp 18 S; Pulse Ox 97% on R/A; jd3 16:55 BP 151 / 73; Pulse 57; Resp 16 S; Pulse Ox 100% on R/A; jd3 19:10 BP 131 / 74; Pulse 56; Resp 15; Pulse Ox 100% on R/A; lg3 13:09 Body Mass Index 34.58 (115.67 kg, 182.88 cm) tw2 MDM: 13:12 Patient medically screened. minesh 15:05 Differential diagnosis: Acute [place], unstable angina, pneumonia, costochondritis. Data [facility] reviewed: vital signs, nurses notes, lab test result(s), EKG, radiologic studies, plain films. Data interpreted: Pulse oximetry: is 97 %. Interpretation: normal. Counseling: I had a detailed discussion with the patient and/or guardian regarding: the historical points, exam findings, and any diagnostic results supporting the discharge/admit diagnosis, the need for further work-up and treatment in the hospital. Physician consultation: Kar Rivera was called at 15:05. ED course: Explained to the patient the need for admission. Informed him that his labs and x-ray were unremarkable. His pain responded very well to the nitro, and he reports that it is now a 3/10 on a pain scale. The patient will be admitted under observation. He is currently stable at this time.. 04/14 13:26 Order name: Basic Metabolic Panel; Complete Time: 14:10 [facility] 04/14 13:26 Order name: CBC with Diff; Complete Time: 13:58 [facility] 04/14 13:26 Order name: LFT's; Complete Time: 14:10 [facility] 04/14 13:26 Order name: Troponin HS; Complete Time: 14:10 [facility] 04/14 15:44 Order name: SARS-COV-2 RT PCR (Document "Date of Onset" if Symptomatic) [facility] 04/14 16:19 Order name: Basic Metabolic Panel [facility] 04/14 13:26 Order name: XRAY Chest (1 view); Complete Time: 16:05 [facility] 04/14 16:19 Order name: Echo with Doppler [facility] 04/14 16:19 Order name: Echo with Doppler [facility] 04/14 16:19 Order name: Basic Metabolic Panel [facility] 04/14 16:19 Order name: CBC with Automated Diff [facility] 04/14 16:19 Order name: CBC with Automated Diff [facility] 04/14 16:19 Order name: Lipid Profile [facility] 04/14 16:19 Order name: Lipid Profile [facility] 04/14 13:26 Order name: EKG; Complete Time: 13:27 [facility] 04/14 13:26 Order name: Cardiac monitoring; Complete Time: 13:28 [facility] 04/14 13:26 Order name: EKG - Nurse/Tech; Complete Time: 13:28 [facility] 04/14 13:26 Order name: IV Saline Lock; Complete Time: 13:28 [facility] 04/14 13:26 Order name: Labs collected and sent; Complete Time: 13:28 [facility] 04/14 13:26 Order name: O2 Per Protocol; Complete Time: 13:28 [facility] 04/14 13:26 Order name: O2 Sat Monitoring; Complete Time: 13:28 [facility] 04/14 16:19 Order name: CONS Physician Consult [facility] 04/14 16:19 Order name: Echo with Doppler [facility] 04/14 16:19 Order name: EKG Electrocardiogram [facility] 04/14 16:19 Order name: EKG Electrocardiogram [facility] EC:15 Rate is 54 beats/min. Rhythm is regular. QRS [place] is Normal. DC interval is normal. QRS jh7 interval is normal. QT interval is normal. No ST changes noted. Clinical impression: Sinus bradycardia. Administered Medications: 13:43 Drug: Aspirin Chewable Tablet 324 mg Route: PO; jd3 14:40 Follow up: Response: No adverse reaction jd3 13:43 Drug: fentaNYL (PF) 50 mcg Route: IVP; Site: right antecubital; jd3 14:40 Follow up: Response: No adverse reaction; RASS: Alert and Calm (0) jd3 13:43 Drug: Zofran (Ondansetron) 4 mg Route: IVP; Site: right antecubital; jd3 14:40 Follow up: Response: No adverse reaction jd3 14:37 Drug: Nitroglycerin 0.4 mg Route: Sublingual; jd3 15:30 Follow up: Response: No adverse reaction d3 Disposition Summary: 04/14/22 15:26 Hospitalization Ordered Hospitalization Status: Observation [facility] Provider: Kar Rivera [facility] Location: Telemetry/MedSurg (observation) [facility] Condition: Stable [facility] Problem: new [facility] Symptoms: have improved [facility] Bed/Room Type: Standard [facility] Room Assignment: 403(04/14/22 18:19) Diagnosis - Chest pain, unspecified [facility] Forms: - Medication Reconciliation Form [facility] - SBAR form [facility] Addendum: 04/29/2022 11:26 Co-signature as Attending Physician, Shorty Neely MD I agree with the assessment and c boles plan of care. Signatures: Dispatcher [employer] [facility] Aspers, Seda, RN Shorty Reddy MD MD cha Wise, Tara RN RN tw2 Jayme Solares RN RN jd3 Bonny Hand, GAL [facility]7 Corrections: (The following items were deleted from the chart) 04/14 18:19 15:26 [facility] dw
--- NOTE | 2022-04-14 15:27 | ER ---
Nurse's Notes [facility] Name: John Hendrickson Age: 46 yrs Sex: Male : 1975 Arrival Date: 04/14/2022 Time: 13:07 Bed 19 Private MD: Diagnosis: Chest pain, unspecified Presentation: 04/14 13:07 Note pt ambulating to the restroom at this time. Onset of symptoms was April 14, 2022. tw2 13:09 Chief complaint: Patient states: it has been going on for at least a week. it seems tw2 like it has gotten worser. pressure center of my chest but then it will come over to the right side. feels like someone is shoving all their weight on my chest. the pain is there but it will get bad and then settle down. Coronavirus screen: At this time, the client does not indicate any symptoms associated with coronavirus-19. Ebola Screen: Patient denies travel to an Ebola-affected area in the 21 days before illness onset. Initial Sepsis Screen: Does the patient meet any 2 criteria? No. Patient's initial sepsis screen is negative. Does the patient have a suspected source of infection? No. Patient's initial sepsis screen is negative. Risk Assessment: Do you want to hurt yourself or someone else? Patient reports no desire to harm self or others. 13:09 Method Of Arrival: Ambulatory tw2 13:09 Acuity: JASVIR 3 tw2 Triage Assessment: 13:11 General: Appears in no apparent distress. Behavior is cooperative, appropriate for age, tw2 anxious. Pain: Complains of pain in left breast. Neuro: Reports dizziness. Cardiovascular: Reports chest pain. Historical: - Allergies: 13:11 Sulfa (Sulfonamide Antibiotics); tw2 13:11 Erythromycin; if IV, hives; tw2 - Home Meds: 13:11 None [Active]; tw2 - PMHx: 13:11 Asthma; tw2 - PSHx: 13:11 left knee; tw2 - Immunization history:: Client reports receiving the 2nd dose of the Covid vaccine. - Social history:: Smoking status: Patient reports use of chewing tobacco. Screenin:13 Abuse screen: Denies threats or abuse. Nutritional screening: No deficits noted. tw2 Tuberculosis screening: No symptoms or risk factors identified. Fall Risk None identified. Assessment: 13:14 Pain: Pain radiates to left breast Pain began 2-3 days ago. tw2 13:30 General: Appears in no apparent distress. uncomfortable, Behavior is calm, cooperative, jd3 appropriate for age. Pain: Complains of pain in chest Quality of pain is described as heavy, pressure, sharp. Neuro: Bowling Agitation-Sedation Scale (RASS): 0 - Alert and Calm Level of Consciousness is awake, alert, obeys commands, Oriented to person, place, time, situation. Cardiovascular: Capillary refill < 3 seconds Patient's skin is warm and dry. Rhythm is regular. Respiratory: Airway is patent Respiratory effort is even, unlabored, Respiratory pattern is regular, symmetrical, Denies cough, shortness of breath. GI: No signs and/or symptoms were reported involving the gastrointestinal system. : No signs and/or symptoms were reported regarding the genitourinary system. EENT: No signs and/or symptoms were reported regarding the EENT system. Derm: Skin is intact, Skin is dry, Skin is normal, Skin temperature is warm. Musculoskeletal: Circulation, motion, and sensation intact. Range of motion: intact in all extremities. 14:41 Reassessment: Patient appears in no apparent distress at this time. No changes from jd3 previously documented assessment. Patient and/or family updated on plan of care and expected duration. Pain level reassessed. Patient is alert, oriented x 3, equal unlabored respirations, skin warm/dry/pink. 15:41 Reassessment: Patient appears in no apparent distress at this time. Patient and/or jd3 family updated on plan of care and expected duration. Pain level reassessed. Patient is alert, oriented x 3, equal unlabored respirations, skin warm/dry/pink. Patient states feeling better. 16:55 Reassessment: Patient appears in no apparent distress at this time. Patient and/or jd3 family updated on plan of care and expected duration. Pain level reassessed. Patient is alert, oriented x 3, equal unlabored respirations, skin warm/dry/pink. awaiting admission Patient states feeling better. 17:26 Reassessment: Patient and/or family updated on plan of care and expected duration. Pain jd3 level reassessed. Patient is alert, oriented x 3, equal unlabored respirations, skin warm/dry/pink. charting continued in [facility]. 19:17 General: Appears in no apparent distress. comfortable, Behavior is calm, cooperative. lg3 Pain: Denies pain. Neuro: No deficits noted. Bowling Agitation-Sedation Scale (RASS): 0 - Alert and Calm Level of Consciousness is awake, alert, obeys commands, Oriented to person, place, time, situation. Cardiovascular: Reports chest pressure Capillary refill < 3 seconds Clubbing of nail beds is absent Patient's skin is warm and dry. Respiratory: No deficits noted. Airway is patent Trachea midline Respiratory effort is even, unlabored, Respiratory pattern is regular, symmetrical. GI: No deficits noted. No signs and/or symptoms were reported involving the gastrointestinal system. Abdomen is round non-distended. : No deficits noted. No signs and/or symptoms were reported regarding the genitourinary system. EENT: No deficits noted. No signs and/or symptoms were reported regarding the EENT system. Derm: No deficits noted. No signs and/or symptoms reported regarding the dermatologic system. Skin is intact, is healthy with good turgor, Skin is dry, Skin temperature is warm. Musculoskeletal: No deficits noted. No signs and/or symptoms reported regarding the musculoskeletal system. Circulation, motion, and sensation intact. Capillary refill < 3 seconds, Range of motion: intact in all extremities. 19:38 General: attempted to call report. TIFFANY Worley not available. Will try again. . lg3 Vital Signs: 13:09 BP 159 / 110; Pulse 63; Resp 19; Temp 98.4(TE); Pulse Ox 100% on R/A; Weight 115.67 kg tw2 (R); Height 6 ft. 0 in. (182.88 cm); Pain 9/10; 14:41 BP 168 / 70; Pulse 64; Resp 18 S; Pulse Ox 97% on R/A; jd3 15:41 BP 129 / 84; Pulse 51; Resp 18 S; Pulse Ox 97% on R/A; jd3 16:55 BP 151 / 73; Pulse 57; Resp 16 S; Pulse Ox 100% on R/A; jd3 19:10 BP 131 / 74; Pulse 56; Resp 15; Pulse Ox 100% on R/A; lg3 13:09 Body Mass Index 34.58 (115.67 kg, 182.88 cm) tw2 ED Course: 13:07 Patient arrived in ED. am2 13:07 Arm band placed on. tw2 13:08 Bonny Hand FNP [facility] jh7 13:08 Shorty Neely MD is Attending Physician. jh7 13:10 Triage completed. tw2 13:11 Bed in low position. Call light in reach. Client placed on continuous cardiac and pulse tw2 oximetry monitoring. NIBP monitoring applied. Echo Argueta at bedside performing the EKG at this time. 13:14 Patient maintains SpO2 saturation greater than 95% on room air. tw2 13:18 EKG done, by ED staff, reviewed by Bonny SANTO. dh3 13:22 Inserted saline lock: 20 gauge in right forearm, using aseptic technique. Blood 3 collected. 13:31 Jayme Solares, TIFFANY is Primary Nurse. jd3 13:32 Initial lab(s) drawn, by ok, sent to lab. dh3 14:23 XRAY Chest (1 view) In Process Unspecified. EDMS 15:25 Kar Rivera is Hospitalizing Provider. jh7 17:26 Assist provider with bone marrow aspiration. Patient admitted, IV remains in place. jd3 Administered Medications: 13:43 Drug: Aspirin Chewable Tablet 324 mg Route: PO; jd3 14:40 Follow up: Response: No adverse reaction jd3 13:43 Drug: fentaNYL (PF) 50 mcg Route: IVP; Site: right antecubital; jd3 14:40 Follow up: Response: No adverse reaction; RASS: Alert and Calm (0) jd3 13:43 Drug: Zofran (Ondansetron) 4 mg Route: IVP; Site: right antecubital; jd3 14:40 Follow up: Response: No adverse reaction jd3 14:37 Drug: Nitroglycerin 0.4 mg Route: Sublingual; jd3 15:30 Follow up: Response: No adverse reaction jd3 Medication: 13:51 VIS not applicable for this client. jd3 Outcome: 15:26 Decision to Hospitalize by Provider. jh7 17:27 Admitted to ER Hold. Please see [facility] for further documentation. jd3 17:27 Condition: stable 17:27 Instructed on the need for admit. 20:11 Patient left the ED. lg3 Signatures: Dispatcher [employer] EDMS Brooklyn Mendoza RN RN tw2 Marlin Murray am2 Ellie Garcia 3 Jayme Solares, RN RN jd3 Anabel Olvera RN RN lg3 Bonny Hand, PARTNER [facility] PARTNER [facility] jh7
--- NOTE | 2022-04-14 15:39 | RAD REPORT ---
EXAM DESCRIPTION: [place] Single View04/14/2022 2:21 pm CLINICAL HISTORY: Chest pain COMPARISON: 2013 FINDINGS: The lungs appear clear of acute infiltrate. The heart is normal size IMPRESSION: No acute abnormalities displayed
[2022-04-14] MEDS ORDERED: MORPHINE 4 MG/ML SYR IV PRN (16:14)
[2022-04-14] MEDS ORDERED: ACETAMINOPHEN 500 MG TAB PO PRN (16:14)
[2022-04-14 17:36] VITALS: BMI 34.5
[2022-04-14] MEDS: ENOXAPARIN 40 MG/0.4 ML SQ SCH (17:44)
[2022-04-14] MEDS ORDERED: ENOXAPARIN 40 MG/0.4 ML SQ ONE (17:45)
[2022-04-14 20:30] VITALS: O2SAT 100
[2022-04-14] MEDS: METOPROLOL TAR 25 MG TAB PO SCH (23:31)
[2022-04-15 05:56] LABS: Absolute Lymphocytes (CBC) 1.7 K/uL (0.7-4.9); Hematocrit 34.1 % (39.6-49.0); Lymphocytes % 22.9 % (15.3-44.8); MCV 75.5 fL (80-100); MPV 7.6 fL (7.6-11.3); RBC Red Blood Cell Count 4.51 M/uL (4.33-5.43)
[2022-04-15 06:06] LABS: Potassium 4.7 mmol/L (3.5-5.1)
[2022-04-15] MEDS ORDERED: REGADENOSON 0.4 MG/5 ML SYR IV ONE (08:06)
[2022-04-15 08:18] VITALS: BP 117/73; TEMP 97.5
[2022-04-15] MEDS: METOPROLOL TAR 25 MG TAB PO SCH (11:16)
[2022-04-15] MEDS: ENOXAPARIN 40 MG/0.4 ML SQ SCH (11:16)
--- NOTE | 2022-04-16 14:33 | EKG ---
Test Date: 2022-04-14 Test Time: 13:13:02 [place]: GEORGE MEASUREMENT RESULTS: Intervals: Rate: 54 MO: 130 QRSD: 92 QT: 402 QTc: 381 [place]: P: 16 MO: 130 QRS: 78 T: 75 INTERPRETIVE STATEMENTS: Sinus bradycardia Minimal voltage criteria for LVH, may be normal variant Early repolarization Borderline ECG Compared to ECG 11/06/2007 09:49:40 Left ventricular hypertrophy now present Early repolarization now present Sinus rhythm no longer present Electronically Signed On 04-16-22 14:32:14 CDT by Junior Galdamez
--- NOTE | 2022-04-18 07:06 | ECHO ---
HEIGHT: 6 ft 0 in WEIGHT: 255 lb 0.139 oz DATE OF STUDY: 04/15/[address]: Shikha Strickland MD 2-DIMENSIONAL: YES M.MODE: YES DOPPLER: YES COLOR FLOW: YES TDS: PORTABLE: YES DEFINITY: BUBBLE STUDY: DIAGNOSIS: CHEST PAIN CARDIAC HISTORY: CATHERIZATION: SURGERY: PROSTHETIC VALVE: PACEMAKER: MEASUREMENTS (cm) DIASTOLIC (NORMALS) SYSTOLIC (NORMALS) IVSd 1.1 (0.6-1.2) LA Diam 3.5 (1.9-4.0) LVEF 65% LVIDd 5.4 (3.5-5.7) LVIDs 3.3 (2.0-3.5) %FS 39% LVPWd 1.2 (0.6-1.2) Ao Diam 3.2 (2.0-3.7) 2 DIMENSIONAL ASSESSMENT: RIGHT ATRIUM: NORMAL LEFT ATRIUM: NORMAL RIGHT VENTRICLE: NORMAL LEFT VENTRICLE: NORMAL TRICUSPID VALVE: NORMAL MITRAL VALVE: NORMAL PULMONIC VALVE: NORMAL AORTIC VALVE: NORMAL PERICARDIAL EFFUSION: NONE AORTIC ROOT: NORMAL LEFT VENTRICULAR WALL MOTION: NORMAL DOPPLER/COLOR FLOW: MILD TRICUSPID REGURGITATION. MILD MITRAL REGURGITATION COMMENTS: NORMAL LEFT VENTRICULAR EJECTION FRACTION 60-65%. NORMAL WALL MOTION. MILD TRICUSPID REGURGITATION. MILD MITRAL REGURGITATION. TECHNOLOGIST: NITIN FUENTES
--- NOTE | 2022-05-11 00:23 | P.DS ---
Discharge Date: 04/15/22 Disposition: ROUTINE DISCHARGE Discharge Condition: GOOD Reason for Admission: Chest pain rule out acute coronary syndrome - Problems (1) Chest pain, rule out acute myocardial infarction Status: Acute Brief History of Present Illness: patient is a 47-year-old gentleman here to the hospital with chest discomfort. Pain was mainly in the sternal region. Patient states the pain was relieved after coming into the hospital and is no longer having any symptoms. No shortness of breath no diaphoresis. Patient had echocardiogram which was normal. Patient will be admitted for observation. Hospital Course: Patient has done well during hospital stay. Clinically patient is doing much better. At this time, patient is stable for discharge home. Vital Signs/Physical Exam: Temp Pulse Resp BP Pulse Ox 97.5 F 85 14 117/73 95 05/11/22 00:22 05/11/22 00:22 05/11/22 00:22 05/11/22 00:22 05/11/22 00:22 General: Alert, In no apparent distress, Oriented x3 Laboratory Data at Discharge: WBC 7.2 K/uL (4.3-10.9) D 04/15/22 05:23 Hgb 11.4 g/dL (13.6-17.9) L 04/15/22 05:23 Hct 34.1 % (39.6-49.0) L 04/15/22 05:23 Plt Count 267 K/uL (152-406) 04/15/22 05:23 Sodium 135 mmol/L (136-145) L 04/15/22 05:23 Potassium 4.7 mmol/L (3.5-5.1) 04/15/22 05:23 BUN 19 mg/dL (7-18) H 04/15/22 05:23 Creatinine 1.01 mg/dL (0.55-1.3) 04/15/22 05:23 Glucose 95 mg/dL (74-106) 04/15/22 05:23 Total Bilirubin 0.3 mg/dL (0.2-1.0) 04/14/22 13:22 AST 15 U/L (15-37) 04/14/22 13:22 ALT 23 U/L (12-78) 04/14/22 13:22 Alkaline Phosphatase 131 U/L (45-117) H 04/14/22 13:22 Triglycerides 73 mg/dL (<150) 04/15/22 05:23 Cholesterol 130 mg/dL (<200) 04/15/22 05:23 HDL Cholesterol 53 mg/dL (40-60) 04/15/22 05:23 Cholesterol/HDL Ratio 2.45 04/15/22 05:23 Home Medications: Aspirin [Aspirin EC] 162 mg PO DAILY #60 tablet. 04/15/22 Hydrocodone 7.5/APAP 325 [[place] 7.5/325 mg] 1 tab PO Q6H PRN #30 tab 04/18/22 New Medications: Aspirin [Aspirin EC] 162 mg PO DAILY #60 tablet. Hydrocodone 7.5/APAP 325 [[place] 7.5/325 mg] 1 tab PO Q6H PRN #30 tab PRN Reason: Pain Physician Discharge Instructions: PROBLEM: Chest Pain GOAL: Clear understanding of disease process INSTRUCTIONS: Diet: AHA Activity: Fall precautions DME DME: Date Ordered: Name of Company: [employer] Services Needed: Name of Company: Date or Referral: IMMUNIZATION Influenza Vaccine Indicated: Influenza Vaccine Given: Date Given: Pneumonia Vaccine Indicated: No Pneumonia Vaccine Given: Date Given: -DC IV and DC home -Follow-up with PCP in 1 to 2 weeks -Follow-up with Cardiology in 1 to 2 weeks -Please call Dr. Strickland at [phone] if any questions regarding hospital stay -Please call nursing station at [phone] if any nursing or medication questions -Return to the emergency room if symptoms worsen Diet: AHA Activity: Fall precautions Followup: NONE,NONE [Primary Care Provider] - Time spent managing pt's care (in minutes): 35
--- NOTE | 2022-05-11 00:23 | P.HP ---
Certification for Inpatient Patient admitted to: Observation With expected LOS: <2 Midnights Patient will require the following post-hospital care: None Practitioner: I am a practitioner with admitting privileges, knowledge of patient current condition, hospital course, and medical plan of care. Services: Services provided to patient in accordance with Admission requirements found in Title 42 Section 412.3 of the Code of Federal Regulations Patient History Date of Service: 04/14/22 Reason for admission: Chest pain rule out acute coronary syndrome History of Present Illness: patient is a 47-year-old gentleman here to the hospital with chest discomfort. Pain was mainly in the sternal region. Patient states the pain was relieved after coming into the hospital and is no longer having any symptoms. No shortness of breath no diaphoresis. Patient had echocardiogram which was normal. Patient will be admitted for observation. Allergies azithromycin [From Zithromax] Allergy (Unverified 12/04/15 22:46) Unknown Sulfa (Sulfonamide Antibiotics) Allergy (Unverified 12/04/15 22:46) Unknown Home Medications: Aspirin [Aspirin EC] 162 mg PO DAILY #60 tablet. 04/15/22 Hydrocodone 7.5/APAP 325 [[place] 7.5/325 mg] 1 tab PO Q6H PRN #30 tab 04/18/22 - Past Medical/Surgical History Past Medical History: Patient denies medical history Past Surgical History: Patient denies surgical history - Family History Father Family History: Reviewed- Non-Contributory - Social History Smoking Status: Never smoker Alcohol use: No CD- Drugs: No Caffeine use: No Place of Residence: Home Review of Systems 10-point ROS is otherwise unremarkable Physical Examination - Vital Signs Temperature: 97.5 F Blood Pressure: 117/73 Pulse: 85 Respirations: 14 Pulse Ox (%): 95 - Physical Exam General: Alert, In no apparent distress, Oriented x3 HEENT: Atraumatic, PERRLA, Mucous membr. moist/pink, EOMI, Sclerae nonicteric Neck: Supple, 2+ carotid pulse no bruit, No LAD, Without JVD or thyroid abnormality Respiratory: Clear to auscultation bilaterally, Normal air movement Cardiovascular: Regular rate/rhythm, Normal S1 S2 Gastrointestinal: Normal bowel sounds, No tenderness Musculoskeletal: No tenderness Integumentary: No rashes Neurological: Normal gait, Normal speech, Normal strength at 5/5 x4 extr, Normal tone, Normal affect Lymphatics: No axilla or inguinal lymphadenopathy Assessment & Plan - Problems (Diagnosis) (1) Chest pain, rule out acute myocardial infarction Status: Acute - Plan 1. Serial troponins and EKG 2. Appreciate Cardiology consultation 3. Echocardiogram and stress test if cardiology is agreeable 4. Anti-platelet therapy, anti coagulation, beta-chuck, statin, and O2 as needed 5. IV morphine for pain 6. Nitro p.r.n. Discharge Plan: Home Plan to discharge in: 24 Hours - Advance Directives Does patient have a Living Will: No Does patient have a Durable POA for Healthcare: No - Code Status/Comfort Care Code Status Assessed: Yes Code Status: Full Code Critical Care: No Time Spent Managing PTS Care (In Minutes): 45
== END 2022-04-15 11:49 | disposition home or self-care (01) | DRG 313 ==
LOC: ER 13:05 → ERHOLD 16:14 → 4TH 19:13 → OBSVTOIN 04-15 10:47
PROVIDERS: ADMIT Hospitalist; ATTEND Hospitalist
DX: R07.9 Chest pain, unspecified (principal); Z88.2 Allergy status to sulfonamides; Z79.82 Long term (current) use of aspirin; Z20.822 Contact with and (suspected) exposure to COVID-19
CPT/HCPCS: 36415; 71045; 80048; 80061; 80076; 84484; 85025; 93005; 93306; 96374; 96375; 99285; G0378; J1650; J2405; J2785; J3010; U0003

== ENCOUNTER 2023-05-09 15:30 | Emergency (ER) | payer SELFPAY ==
--- OUTSIDE RECORDS SUMMARY | 2023-05-09 15:51 | XMS REPORT | Continuity of Care Document ---
:1975 Author Organization [facility] t Address [address] [facility] [address] [place] [address] Care Team Providers Name Role Phone Zulma Hendrix Primary Care Physician [phone] ELIAZAR FLOREZ Attending Clinician Unavailable Aki Luna Attending Clinician Eliazar Florez DO Attending Clinician Amaya Kaur LVN Attending Clinician OMID HODGE Attending Clinician Unavailable Ly Araujo DO Attending Clinician Omid Hodge MD Attending Clinician JAMIE LOERA Attending Clinician Unavailable Jamie Loera MD Attending Clinician PETE CLARKE Attending Clinician Unavailable KEERTHI PIKE Attending Clinician Unavailable Keerthi Pike MD Attending Clinician KRYSTAL LYON Attending Clinician Unavailable Krystal Ramirez Attending Clinician Doctor Unassigned, Desloge Attending Clinician Unavailable CARLOS EDUARDO NIXON Attending Clinician Unavailable CARLOS EDUARDO NIXON Attending Clinician Unavailable Carlos Eduardo Nixon DO Attending Clinician LUPIS ECHEVARRIA Attending Clinician Unavailable Lupis Echevarria MD Attending Clinician STEPHEN BRYAN Attending Clinician Unavailable Stephen Hutchins Attending Clinician NOE BINGHAM Attending Clinician Unavailable Noe Bingham DO Attending Clinician Zan Neff MDH. Attending Clinician ZAN NEFFHLakesha Attending Clinician Unavailable Aki CHOWDARY Attending Clinician Unavailable LINA HEARD Attending Clinician Unavailable Lina Heard NP Attending Clinician SCOTT DAO Attending Clinician Unavailable ELIAZAR FLOREZ Admitting Clinician Unavailable Eliazar Florez DO Admitting Clinician OMID HODGE Admitting Clinician Unavailable Omid Hodge MD Admitting Clinician JAMIE LOERA Admitting Clinician Unavailable KEERTHI PIKE Admitting Clinician Unavailable KRYSTAL LYON Admitting Clinician Unavailable LUPIS ECHEVARRIA Admitting Clinician Unavailable Lupis Echevarria MD Admitting Clinician STEPHEN BRYAN Admitting Clinician Unavailable NOE BINGHAM Admitting Clinician Unavailable ZAN NEFF.HLakesha Admitting Clinician Unavailable LINA HEARD Admitting Clinician Unavailable SCOTT DAO Admitting Clinician Unavailable Payers Payer Name Policy Type Policy Number Effective Date Expiration Date S [facility] [place] PENDING PENDING 2021 00:00:00 Problems Condition Condition Condition Status Onset Resolution Last Treating Co mments Source Name Details Category Date Date Treatment Clinician Date Elevated Elevated Disease Active Unive rs brain brain 5-26 ity of natriure[place] nat[place] c peptide c peptide 00 [facility] prosper (BNP) (BNP) Branch level level Other Other Disease Active Univers specified specified 5-26 ity of anemias anemias 00:00: [place] 00 Medical Branch Chest Chest Disease Active Univers pain, pain, 5-25 ity of unspecifie unspecifie 00:[place] d type d type 00 Medical Branch Epigastric Epigastric Disease Active U nivers pain pain 3-23 ity of 00:00: [place] [facility] Dyslipidem Dyslipidem Disease Active U nivers ia ia 1-21 ity of 00:00: [place] [facility] COVID-19 COVID-19 Disease Active Unive rs 1-14 ity of 00:00: [place] [facility] Atypical Atypical Disease Active Unive rs chest pain chest pain 08-09 it y of 00:00: [place] [facility] Obesity Obesity Disease Active Univers (BMI (BMI 08-09 ity of 30-39.9) 30-39.9) 00:00: [place] [facility] Essential Essential Disease Active Uni vers hypertensi hypertensi 08-09 it y of on on 00:00: [place] [facility] Family Family Disease Active Univers history of history of 08-09 it y of early CAD early CAD 00:[place] Mild Mild Disease Recurre [facility] intermitte intermitte nce 6-23 Leonarda kes nt asthma nt asthma 00:00: Medi prosper without without 00 Center complicati complicati on on Poor Poor Disease Recurre [facility] dentition dentition nce 6-23 [facility] 00:00: Medical 00 Center Encounter Encounter Disease Recurre [facility]23 [facility] tobacco tobacco 00:00: Medical use use 00 Center cessation cessation counseling counseling Acute pain Acute pain Disease Active [facility] Center Oropharyng Oropharyng Disease Active [facility] eal eal 6-23 [facility] dysphagia dysphagia 00:00: Medi prosper 00 Center Odynophagi Odynophagi Disease Active [facility] a a 6[facility]23 [facility] 00:[facility]: Medical 00 Center Trismus Trismus Disease Active 2018- [facility] 00:[facility] 00 Center Peritonsil Peritonsil Disease Active 2019- [facility] lar lar 6-22 [facility] abscess abscess 00:00: Medical 00 Center At high At high Disease Active [facility] risk for risk for 6-22 [facility] airway airway 00:00: Medical occlusion occlusion 00 Cent er Chewing Chewing Disease Recurre [facility] tobacco tobacco nce 1-01 [facility] use use 00:00: Medical 00 Center Allergies, Adverse Reactions, Alerts Allergy Allergy Status Severity Reaction(s) Onset Inactive Treating Comm ents Source Name Type Date Date Clinician neo Alejai Active ycin ty to 04-07 (Not adverse 00:00: Checked) reaction 00 to drug SULFA Drug Active Hives 2020- Univers (SULFONA Class 2-28 ity of MIDE 00:00: [place] ANTIBIOT 00 Medical ICS) Branch Sulfa Propensi Active Hives 2020- Univers (Sulfona ty to 2-28 ity of mide adverse 00:00: [place] Antibiot reaction 00 Medica l ics) s Branch Sulfa Propensi Active Hives 2020- Univers (Sulfona ty to 2-28 ity of mide adverse 00:00: [place] Antibiot reaction 00 Medica l ics) s Branch Sulfa Drug Active Hives, Rash 2019- [facility] (Sulfona Allergy 6[facility]22 [facility] mide 00:00: symptoms Medical Antibiot 00 of Center ics) redness, rash, and hives Sulfa Drug Active Hives, Rash 2019-0 [facility] (Sulfona Allergy 6-22 [facility] mide 00:00: symptoms Medical Antibiot 00 of Center ics) redness, rash, and hives Vancomyc Propensi Active Hives 2018-0 Univer s in ty to 4-09 ity of adverse 00:00: [place] reaction 00 Medical s Branch VANCOMYC DRUG Active Hives 2018-0 Univers IN INGREDI 02-19 ity of 00:00: [place] 00 Medical Branch Social History Social Habit Start Date Stop Date Quantity Comments Source History SDOH [facility] Alcohol Comment Medical C enter History of tobacco Chews Tobacco Uni versity of use [place] [facility] History SDOH Social Unive rsity of [facility] Med ical Together Branch History SDOH Social Unive rsity of [facility] Medical Branch History SDOH Social Unive rsity of [facility] Medical Membership Branch History SDOH Social Unive rsity of [facility] Medical Meetings Branch History SDOH [facility] Alcohol Binge Medical Aaron ter History SDOH [facility] Alcohol Std Drinks Medica l [place] Tobacco use and 2023-04-07 2023-04-07 Former smokeless Uni versity of exposure 00:00:00 00:00:00 tobacco user [place] [facility] Exposure to 2023-03-27 2023-04-06 Not sure University of SARS-CoV-2 (event) 00:00:00 16:49:00 [place] [facility] History SDOH Social 2023-02-03 2023-02-03 5 Unive rsity of Connections Phone 00:00:00 00:00:00 [place] M edical Branch History SDOH Social 2023-02-03 2023-02-03 7 Unive rsity of Connections Living 00:00:00 00:00:00 [place] [facility] History SDOH 2023-02-03 2023-02-03 0 University o f Physical Activity 00:00:00 00:00:00 [place] M edical DPW Branch History SDOH 2023-02-03 2023-02-03 0 University o f Physical Activity 00:00:00 00:00:00 [place] M edical MPS Branch History SDOH 2023-02-03 2023-02-03 5 University o f Financial 00:00:00 00:00:00 [place] [facility] History SDOH Food 2023-02-03 2023-02-03 1 Univers ity of Worry 00:00:00 00:00:00 [place] [facility] History SDOH Food 2023-02-03 2023-02-03 1 Univers ity of Scarcity 00:00:00 00:00:00 [place] [facility] History SDOH 2023-02-03 2023-02-03 2 University o f Transport Med 00:00:00 00:00:00 [place] Medic al Branch History SDOH 2023-02-03 2023-02-03 2 University o f Transport Non-Med 00:00:00 00:00:00 [place] M edical Branch History SDOH 2023-02-03 2023-02-03 2 University o f Housing Unable to 00:00:00 00:00:00 [place] M edical Pay Branch History SDOH 2023-02-03 2023-02-03 1 University o f Housing Places 00:00:00 00:00:00 [place] Medi prosper Lived Branch History SDOH 2023-02-03 2023-02-03 2 University o f Housing Homeless 00:00:00 00:00:00 [place] Me dical Last Year Branch History SDNC 2019-05-05 2019-05-05 1 ALEXANDRA Garcia Alcohol Frequency 00:00:00 00:00:00 [facility] Alcohol intake 2019-05-04 2019-05-04 Current [facility] St Gray es 00:00:00 00:00:00 non-drinker of Medical Ce nter alcohol (finding) Sex [birth year] At [birth year] ALEXANDRA Damicos 00:00:00 00:00:00 [facility] Smoking Status Start Date Stop Date Source Ex-smoker 2023-04-07 00:00:00 2023-04-07 00:00:00 [facility] Never smoked tobacco [facility] Smokes tobacco daily 2019-05-04 00:00:00 [facility] Medications Ordered Filled Start Stop Current Ordering Indication Dosage Frequency Signature Comments Components Source Medication Medication Date Date Medication? Clinician (SIG) Name Name aspirin 81 2022- Yes [id number] 81mg Take 1 Univers mg chewable 5-27 - tablet by it y of tablet 00:00: 04:59 mouth in [place] 00 :00 [facility] for 30 days. amLODIPine 2022- Yes [id number] 5mg Take 1 Univers 5 mg tablet 04-08- tablet by it y of 00:00: 04:59 mouth in [place] 00 :00 [facility] for 30 days. ALBUTEROL Yes 1{puff} Inhale 1 U nivers INHALE 5-26 Puff as ity of 14:06: needed for [place] [address] Other (SOB Medical or Branch wheezing). amLODIPine Yes 5mg 5 mg, Univer s (NORVASC) 5-26 Oral, ity of tablet 5 mg 14:00: DAILY, [place] 00 First dose Medical on Fri Branch 04/07/23 at 0900, Until Discontinu ed, Routine aspirin 2022-0 Yes 81mg 81 mg, Univers chewable 5-26 Oral, ity of tablet 81 14:00: DAILY, [place] mg 00 First dose Medical on Mon Branch 04/07/23 at 0900, Until Discontinu ed, Routine ferrous 2022-0 Yes 325mg 325 mg, Univer s sulfate 5-26 Oral, BID ity of tablet 325 13:00: MEALS, [place] mg 00 First dose Medical on Fri Branch 04/07/23 at 0800, Until Discontinu ed, Routine iron 2022- No 300mg 300 mg, IV Unive rs sucrose 04-07 Infusion, ity of (VENOFER) 03:00: 16:38 ONCE, [place] 300 mg in 00 :00 Administer Medi prosper NaCl 0.9% over 2.5 Branch (NS) 250 mL Hours, On infusion 04/07/23 at 0900, For 1 dose docusate Yes 100mg 100 mg, Unive rs (COLACE) 04-07 Oral, BID, ity o f capsule 100 02:15: First dose [place] mg 00 on [place] Medical 04/06/23 at Branch 2115, Until Discontinu ed, Routine acetaminoph Yes 650mg 650 mg, Un uriel en 04-07 Oral, ity of (TYLENOL) 01:01: Q6HPRN, [place] tablet 650 59 Starting Medic al mg on [facility] Branch 04/06/23 at 2001, Until Discontinu ed, Routine, Pain (scale 1-3) nitroglycer 2022- No .5[in_u 0.5 Inch, Univers in (NITROL) 04-07 s] Transderma i ty of 2 % 00:15: 23:26 l (Apply [place] ointment 00 :00 To Skin), Medica l 0.5 Inch ONCE, 1 Branch dose, On [facility] 04/06/23 at 1915, [place] ferrous 2022-2022- Yes [id number] 325mg Take 1 U nivers sulfate 325 04-07 tablet by it y of mg (65 mg 00:00: 04:59 mouth in [place] as iron) 00 :00 the Medical tablet morning Branch and 1 tablet in the evening. Take with meals. Do all this for 30 days. aspirin 2022- No 324mg 324 mg, Unive rs chewable 04-06 Oral, ity of tablet 324 22:45: 22:00 ONCE, 1 [place] as mg 00 :00 dose, On Medical [facility] 04/06/23 at 1745, Routine nitroglycer 2022- No .4mg 0.4 mg, Un uriel in 04-06 Sublingual ity of (NITROSTAT) 22:00: 21:59 , ONCE, 1 [place] sublingual 00 :00 dose, On Medic al tablet 0.4 [place] Branch mg 04/06/23 at 1700, [place] ALBUTEROL 2022-0 Yes 1{puff} Inhale 1 U nivers INHALE 3-28 Puff as ity of 15:57: needed for [place] 23 Other (SOB Medical or Branch wheezing). ALBUTEROL 2022-0 Yes 1{puff} Inhale 1 U nivers INHALE 3-28 Puff as ity of 15:57: needed for [place] 23 Other (SOB Medical or Branch wheezing). bisacodyL 2022-0 Yes [id number] 5mg Take 1 U nivers (DULCOLAX, 3-28 tablet by ity of BISACODYL,) 00:00: mouth once [place] 5 mg EC 00 daily as Medical tablet needed for Branch Constipati on. ibuprofen 2022-0 Yes [id number] 600mg Take 1 Univers 600 mg 3-28 tablet by ity of tablet 00:00: mouth [place] 00 every 8 Medical (eight) Branch hours as needed for Pain (scale 4-6). bisacodyL 2022-0 Yes [id number] 5mg Take 1 U nivers (DULCOLAX, 3-28 tablet by ity of BISACODYL,) 00:00: mouth once [place] 5 mg EC 00 daily as Medical tablet needed for Branch Constipati on. ibuprofen 2022-0 Yes [id number] 600mg Take 1 Univers 600 mg 3-28 tablet by ity of tablet 00:00: mouth [place] 00 every 8 Medical (eight) Branch hours as needed for Pain (scale 4-6). bisacodyL 2022-0 Yes [id number] 5mg Take 1 U nivers (DULCOLAX, 3-28 tablet by ity of BISACODYL,) 00:00: mouth once [place] 5 mg EC 00 daily as Medical tablet needed for Branch Constipati on. ibuprofen 2022-0 Yes [id number] 600mg Take 1 Univers 600 mg 3-28 tablet by ity of tablet 00:00: mouth [place] 00 every 8 Medical (eight) Branch hours as needed for Pain (scale 4-6). pantoprazol 2022-0 2023- No [id number] 20mg Take 1 Univers e 20 mg EC 3-28 04-28 tablet by ity of tablet 00:00: 04:59 mouth in [place] 00 :00 the Medical morning Branch for 30 days. ferrous 2022- No [id number] 325mg Take 1 U nivers sulfate 325 02-07 tablet by it y of mg (65 mg 00:00: 04:59 mouth in [place] iron) 00 :00 the Medical tablet morning Branch and 1 tablet at noon and 1 tablet in the evening. Take with meals. Do all this for 30 days. pantoprazol 2022- No [id number] 20mg Take 1 Univers e 20 mg EC 02-07 tablet by ity of tablet 00:00: 04:59 mouth in [place] 00 :00 the Medical morning Branch for 30 days. ferrous 2022- No [id number] 325mg Take 1 U nivers sulfate 325 02-07 tablet by it y of mg (65 mg 00:00: 04:59 mouth in [place] iron) 00 :00 the Medical tablet morning Branch and 1 tablet at noon and 1 tablet in the evening. Take with meals. Do all this for 30 days. iopamidol 2022- No [id number] 80mL 80 mL, Univers (ISOVUE 02-06 Intravenou ity o f 370-500 mL) 14:45: 13:44 s, ONCE, 1 [place] injection 00 :00 dose, On Medica l 80 mL Mon Branch 02/06/23 at 0945, Routine ketorolac 2022- No 30mg 30 mg, Unive rs (TORADOL) 02-05 Slow IV ity of injection 14:46: 14:45 Push, [place] 30 mg 15 :15 Q8HPRN, Medical Starting Branch on 02/05/23 at 0946, Until 02/08/23 at 0945, Routine, Pain (scale 4-6) pantoprazol Yes 40mg 40 mg, Univ ers e 02-05 Slow IV ity of (PROTONIX) 01:00: Push, [place] injection 00 Q12H, Medical 40 mg First dose Branch on 02/04/23 at 2000, Until Discontinu ed bisacodyL 2022- No 10mg 10 mg, Unive rs (DULCOLAX) 02-04 Rectal, ity o f suppository 16:30: 15:43 ONCE, 1 [place] 10 mg 00 :00 dose, On Medical [facility] Branch 02/04/23 at 1130, Routine morpHINE (2 2022- No 2mg 2 mg, Slow Univers mg/mL) 02-04 IV Push, ity of injection 2 15:57: 14:46 Q4HPRN, [place] mg 04 :52 Starting Medical on [facility] Branch 02/04/23 at 1057, Until 02/05/23 at 0946, Routine, Pain (scale 7-10) bisacodyL Yes 10mg 10 mg, Univer s (DULCOLAX) 02-04 Rectal, ity of suppository 15:30: QDAILYPRN, [place] 10 mg 57 Starting Medical on [facility] Branch 02/04/23 at 1030, Until Discontinu ed, Routine, Constipati on diatrizoate 2022- No [id number] 120mL 120 mL, Univers keisha-diatriz 02-04 Oral, ity of oat sod 15:30: 15:30 ONCE, 1 [place] (GASTROGRAF 00 :00 dose, On Medi prosper IN) 66-10 % [facility] Branch oral 02/04/23 at solution 1030, 120 mL Routine D5W 0.45% Yes IV Univers NaCl 02-03 Infusion, ity of (1/2NS) 1 L 22:30: at 125 [place] + KCL 20 00 mL/hr, Medical mEq CONTINUOUS Branch , Starting on Mon02/03/23 at 1730, Until Discontinu ed, Routine simethicone Yes 80mg 80 mg, Univ ers (GAS RELIEF 02-03 Oral, ity of (SIMETHICON 19:49: Q4HPRN, [place] E)) 08 Starting Medical chewable on Mon Branch tablet 80 02/03/23 at mg 1449, Until Discontinu ed, Routine, Gas NaCl 0.9% 2022- No 1000mL at 50 Univ ers (NS) IV 02-03-24 mL/hr, IV ity of infusion 15:00: 21:21 Infusion, [place] 1,000 mL 00 :49 CONTINUOUS Medic al , Starting Branch on Mon02/03/23 at 1000, Until Mon02/03/23 at 1621, Routine enoxaparin Yes 40mg 40 mg, Unive rs (LOVENOX) 02-03 Subcutaneo ity of injection 14:00: [place], DAILY, [place] 40 mg 00 First dose Medical on Mon Branch 02/03/23 at 0900, Until Discontinu ed, Routine NaCl 0.9% 2022- No 50mL at 100 Unive rs (NS) IV 02-03 mL/hr, IV ity of infusion 50 13:00: 14:42 Infusion, [place] mL 00 :20 CONTINUOUS Medical , Starting Branch on Mon02/03/23 at 0800, Until Mon02/03/23 at 0942, Routine NaCl 0.9% 2022- No 1000mL at 100 Uni vers (NS) IV 02-03 mL/hr, IV ity of infusion 07:30: 12:59 Infusion, [place] 1,000 mL 00 :55 CONTINUOUS Medic al , Starting Branch on Mon02/03/23 at 0230, Until Mon02/03/23 at 0759, Routine phenoL 2022- No 1{spray 1 [place], Uni vers (SORE 02-03 } Oral, ity of THROAT 03:30: 02:58 ONCE, 1 [place] (PHENOL)) 00 :00 dose, On Medica l 1.4 % spray [place] Branch bottle 1 02/02/23 at [place] 2230, Routine ondansetron Yes 4mg 4 mg, Slow Univers (ZOFRAN 02-03 IV Push, ity of (PF)) 02:04: Q6HPRN, [place] injection 4 38 Starting Medi prosper mg on [place] Branch 02/02/23 at 210, Until Discontinu ed, Routine, Nausea and Vomiting (N/V) morpHINE (2 2022- No 2mg 2 mg, Slow Univers mg/mL) 02-03 0325 IV Push, ity of injection 2 02:04: 02:03 Q4HPRN, [place] mg 31 :31 Starting Medical on [place] Branch 02/02/23 at 2103, Until Mon02/03/23 at 2103, Routine, Pain (scale 7-10) iopamidol 2022- No [id number] 75mL 75 mL, U nivers (ISOVUE 02-02 Intravenou ity o f 370-500 mL) 21:00: 21:00 s, ONCE, 1 [place] injection 00 :00 dose, On Medica l 75 mL [place] Branch 02/02/23 at 1600, Routine ketorolac 2022- No 15mg 15 mg, Unive rs (TORADOL) 02-02 Slow IV ity of injection 19:45: 19:10 Push, [place] 15 mg 00 :00 ONCE, 1 Medical dose, On Branch [place] 02/02/23 at 1445, [place] ondansetron 2022- No 4mg 4 mg, Slow Univers (ZOFRAN 02-02 IV Push, ity of (PF)) 18:45: 19:10 ONCE, 1 [place] injection 4 00 :00 dose, On Medi prosper mg [place] Branch 02/02/23 at 1345, [place] NaCl 0.9% 2022- No 500mL at 999 Univ ers (NS) bolus 02-02 mL/hr, 500 it y of infusion 18:45: 20:09 mL, IV [place] 500 mL 00 :00 Infusion, Medical ONCE, 1 Branch dose, On [place] 02/02/23 at 1345, STAT ketorolac 2022- No 30mg 30 mg, Unive rs (TORADOL) 12-28 Slow IV ity of injection 06:15: 05:13 Push, [place] 30 mg 00 :00 ONCE, 1 Medical dose, On Branch 12/28/22 at 0015, Routine furosemide 2022- No 40mg 40 mg, IV U nivers (LASIX) 12-28 Push, ity of injection 05:15: 05:12 ONCE, 1 [place] 40 mg 00 :00 dose, On Medical Tue Branch 12/27/22 at 2315, [place] furosemide 2022- Yes [id number] 20mg Take 1 Univers 20 mg 2-15 tablet by ity of tablet 00:00: mouth [place] 00 every Medical morning. Branch traMADoL 2023-0 Yes [id number] 50mg Take 1 Univers (ULTRAM) 50 2-15 tablet by ity of mg tablet 00:00: mouth [place] 00 every 6 Medical (six) Branch hours as needed for Pain (scale 7-10). Indication s: acute pain furosemide 0 Yes [id number] 20mg Take 1 Univers 20 mg 2-15 tablet by ity of tablet 00:00: mouth [place] 00 every Medical morning. Branch furosemide 0 Yes [id number] 20mg Take 1 Univers 20 mg 2-15 tablet by ity of tablet 00:00: mouth [place] 00 every Medical morning. Branch furosemide 0 Yes [id number] 20mg Take 1 Univers 20 mg 2-15 tablet by ity of tablet 00:00: mouth [place] 00 every Medical morning. Branch traMADoL 2022- No [id number] 50mg Take 1 Univer s (ULTRAM) 50 2-15 03-23 tablet by it y of mg tablet 00:00: 00:00 mouth [place] 00 :00 every 6 Medical (six) Branch hours as needed for Pain (scale 7-10). Indication s: acute pain Dose 2021-0 No Unknown 9-20 00:00: 00 ONE FILM 2021-0 No 82 TWICE A DAY 9-06 00:00: 00 Dose 2021-0 No Unknown 8-23 00:00: 00 Dose 2021-0 No Unknown 8-11 00:00: 00 Dose 2021-0 No Unknown 8-11 00:00: 00 Dose 2021-0 No Unknown 8-11 00:00: 00 Dose 2021-0 No Unknown 8-11 00:00: 00 Dose 2021-0 No Unknown 7-28 00:00: 00 Dose 2021-0 No Unknown 7-28 00:00: 00 Dose 2021-0 No Unknown 7-28 00:00: 00 Dose 2021-0 No Unknown 7-28 00:00: 00 Dose 2021-0 No Unknown 7-14 00:00: 00 Dose 2021-0 No Unknown 7-14 00:00: 00 Dose 2021-0 No Unknown 7-14 00:00: 00 Dose 2021-0 No Unknown 7-14 00:00: 00 Dose 2021-0 No Unknown 7-14 00:00: 00 Dose 2021-0 No Unknown 7-12 00:00: 00 Dose 2021-0 No Unknown 7-12 00:00: 00 Dose 2021-0 No Unknown 6-30 00:00: 00 Dose 2021-0 No Unknown 6-16 00:00: 00 Dose 2021-0 No Unknown 6-02 00:00: 00 Dose 2021-0 No Unknown 5-26 00:00: 00 Dose 2021-0 No Unknown 5-26 00:00: 00 Dose 2021-0 No Unknown 5- 00:00: 00 Dose 2021-0 No Unknown 5- 00:00: 00 Dose 2021-0 No Unknown 5- 00:00: 00 Dose 2021-0 No Unknown 5- 00:00: 00 Dose 2021-0 No Unknown 5- 00:00: 00 Dose 2021-0 No Unknown 5- 00:00: 00 Dose 2021-0 No Unknown 5- 00:00: 00 iopamidol 2021- No [id number] 100mL 100 mL, Univers (ISOVUE 04-05 Intravenou ity o f 370-500 mL) 23:30: 22:14 s, ONCE, 1 [place] injection 00 :00 dose, On Medica l 100 mL Tue Branch 04/05/22 at 1830, Routine aspirin 2021- No 325mg 325 mg, Unive rs E.C. 04-05 Oral, ity of (ECOTRIN) 22:15: 21:17 ONCE, 1 [place] tablet 325 00 :00 dose, On Medic al mg Tue Branch 04/05/22 at 1715, STAT ketorolac 0 Yes [id number] 10mg Take 1 U nivers 10 mg 1-28 tablet by ity of tablet 00:00: mouth [place] 00 every 6 Medical (six) Branch hours as needed for Pain (scale 4-6) or Pain (scale 7-10). ketorolac 2021-0 Yes [id number] 10mg Take 1 U nivers 10 mg 1-28 tablet by ity of tablet 00:00: mouth [place] 00 every 6 Medical (six) Branch hours as needed for Pain (scale 4-6) or Pain (scale 7-10). ketorolac 2021-0 Yes [id number] 10mg Take 1 U nivers 10 mg 1-28 tablet by ity of tablet 00:00: mouth [place] 00 every 6 Medical (six) Branch hours as needed for Pain (scale 4-6) or Pain (scale 7-10). ketorolac 2-0 Yes [id number] 10mg Take 1 U nivers 10 mg 1-28 tablet by ity of tablet 00:00: mouth [place] 00 every 6 Medical (six) Branch hours as needed for Pain (scale 4-6) or Pain (scale 7-10). ketorolac 2021-0 Yes [id number] 10mg Take 1 U nivers 10 mg 1-28 tablet by ity of tablet 00:00: mouth [place] 00 every 6 Medical (six) Branch hours as needed for Pain (scale 4-6) or Pain (scale 7-10). ketorolac 2021-0 Yes [id number] 10mg Take 1 U nivers 10 mg 1-28 tablet by ity of tablet 00:00: mouth [place] 00 every 6 Medical (six) Branch hours as needed for Pain (scale 4-6) or Pain (scale 7-10). ketorolac 2021-0 Yes [id number] 10mg Take 1 U nivers 10 mg 1-28 tablet by ity of tablet 00:00: mouth [place] 00 every 6 Medical (six) Branch hours as needed for Pain (scale 4-6) or Pain (scale 7-10). ketorolac 2021-0 3- No [id number] 10mg Take 1 Univers 10 mg 1-28 03-23 tablet by ity of tablet 00:00: 00:00 mouth [place] 00 :00 every 6 Medical (six) Branch hours as needed for Pain (scale 4-6) or Pain (scale 7-10). diclofenac 2021-0 202- No 75mg Take 75 mg Univers 75 mg EC 11-20 by mouth 2 ity of tablet 00:00: 00:00 (two) [place] 00 :00 times Medical daily. Branch diclofenac 2021-0 2- No 75mg Take 75 mg Univers 75 mg EC 11-20 by mouth 2 ity of tablet 00:00: 00:00 (two) [place] 00 :00 times Medical daily. Branch albuterol 2018-0 Yes bronchospas 2.5mg Q.5D Take 2.[address] [facility] (PROVENTIL) 6-23 m mg [facility] 2.[facility] mg /3 10:12: prevention nebulizati Medical mL (0.083 50 on 2 (two) Cent er %) times nebulizer daily For solution wheezing, hx of asthma . albuterol 0 Yes bronchospas 2.5mg Q.5D Take 2.[address] [facility] [address] (PROVENTIL) 6-23 m mg by [facility] 2.5 mg /3 10:12: prevention nebulizati Medical mL (0.083 50 on 2 (two) Cent er %) times nebulizer daily For solution wheezing, hx of asthma . albuterol 0 Yes bronchospas 2.5mg Q.5D Take 2.[address] [facility] [address] (PROVENTIL) 6-23 m mg by [facility] 2.5 mg /3 10:12: prevention nebulizati Medical mL (0.083 50 on 2 (two) Cent er %) times nebulizer daily For solution wheezing, hx of asthma . albuterol Yes bronchospas 2.5mg Q.5D Take 2.[address] [address] (PROVENTIL) 6-23 m mg by [facility] 2.5 mg /3 10:12: prevention nebulizati Medical mL (0.083 50 on 2 (two) Cent er %) times nebulizer daily For solution wheezing, hx of asthma . albuterol 0 Yes bronchospas 2.5mg Q.5D Take 2.[address] (PROVENTIL) 6-23 m mg by [facility] 2.5 mg /3 10:12: prevention nebulizati Medical mL (0.083 50 on 2 (two) Cent er %) times nebulizer daily For solution wheezing, hx of asthma . albuterol 0 Yes bronchospas 2.5mg Q.5D Take 2.[address] [facility] ([facility]) 6-23 m [facility] /3 10:12: prevention nebulizati Medical mL (0.083 50 on 2 (two) Cent er %) times nebulizer daily For solution wheezing, hx of asthma . albuterol 0 Yes bronchospas 2.5mg Q.5D Take 2.[address] [facility] ([facility]) 6-23 m mg [facility] 2[facility] mg /3 10:12: prevention nebulizati Medical mL (0.083 50 on 2 (two) Cent er %) times nebulizer daily For solution wheezing, hx of asthma . albuterol 2018-0 Yes bronchospas 2.5mg Q.5D Take 2.[address] [facility] ([facility]) 6-23 m mg [facility] 2.[facility] mg /3 10:12: prevention nebulizati Medical mL (0.083 50 on 2 (two) Cent er %) times nebulizer daily For solution wheezing, hx of asthma . albuterol 0 Yes bronchospas 2.5mg Q.5D Take 2.[address] [facility] ([facility]) 6-23 m mg [facility] 2.[facility] mg /3 10:12: prevention nebulizati Medical mL (0.083 50 on 2 (two) Cent er %) times nebulizer daily For solution wheezing, hx of asthma . albuterol 0 Yes bronchospas 2.5mg Q.5D Take 2.[address] [facility] ([facility]) 6-23 m mg [facility] 2.[facility] mg /3 10:12: prevention nebulizati Medical mL (0.083 50 on 2 (two) Cent er %) times nebulizer daily For solution wheezing, hx of asthma . albuterol 0 Yes bronchospas 2.5mg Q.5D Take 2.[address] [facility] ([facility]) 6-23 m mg [facility] 2.[facility] mg /3 10:12: prevention nebulizati Medical mL (0.083 50 on 2 (two) Cent er %) times nebulizer daily For solution wheezing, hx of asthma . albuterol 0 Yes bronchospas 2.5mg Q.5D Take 2.[address] [facility] ([facility]) 6-23 m mg [facility] 2.[facility] mg /3 10:12: prevention nebulizati Medical mL (0.083 50 on 2 (two) Cent er %) times nebulizer daily For solution wheezing, hx of asthma . albuterol 0 Yes bronchospas 2.5mg Q.5D Take 2.[address] [facility] ([facility]) 6-23 m mg [facility] 2.[facility] mg /3 10:12: prevention nebulizati Medical mL (0.083 50 on 2 (two) Cent er %) times nebulizer daily For solution wheezing, hx of asthma . albuterol 0 Yes bronchospas 2.5mg Q.5D Take 2.[address] [facility] [address] ([facility]) 6-23 m mg [facility] 2.[facility] mg /3 10:12: prevention nebulizati Medical mL (0.083 50 on 2 (two) Cent er %) times nebulizer daily For solution wheezing, hx of asthma . albuterol Yes bronchospas 2.5mg Q.5D Take 2.[address] [facility] ([facility]) 6-23 m [facility] mg /3 10:12: prevention nebulizati Medical mL (0.083 50 on 2 (two) Cent er %) times nebulizer daily For solution wheezing, hx of asthma . albuterol Yes bronchospas 2.5mg Q.5D Take 2.[address] [facility] [address] ([facility]) 6-23 m mg [facility] 2.[facility] mg /3 10:12: prevention nebulizati Medical mL (0.083 50 on 2 (two) Cent er %) times nebulizer daily For solution wheezing, hx of asthma . albuterol Yes bronchospas 2.5mg Q.5D Take 2.[address] [facility] [address] ([facility]) 6-23 m mg by [facility] 2.[facility] mg /3 10:12: prevention nebulizati Medical mL (0.083 50 on 2 (two) Cent er %) times nebulizer daily For solution wheezing, hx of asthma . albuterol Yes bronchospas 2.5mg Q.5D Take 2.[address] [facility] [address] ([facility]) 6-23 m mg [facility] 2.[facility] mg /3 10:12: prevention nebulizati Medical mL (0.083 50 on 2 (two) Cent er %) times nebulizer daily For solution wheezing, hx of asthma . albuterol Yes bronchospas 2.5mg Q.5D Take 2.[address] [facility] [address] ([facility]) 6-23 m [facility] mg /3 10:12: prevention nebulizati Medical mL (0.083 50 on 2 (two) Cent er %) times nebulizer daily For solution wheezing, hx of asthma . diclofenac No 1mg potassium 2-08 50 mg 00:00: tablet 00 Robaxin 500 No 1mg mg tablet 208 00:00: 00 Vital Signs Vital Name Observation Time Observation Value Comments Source Systolic blood 2023-04-07 16:08:00 148 mm[Hg] [facility] Diastolic blood 2023-04-07 16:08:00 79 mm[Hg] [facility] Heart rate 2023-04-07 16:08:00 53 /min [facility] Body temperature 2023-04-07 16:08:00 35.67 Racheal [facility] Respiratory rate 2023-04-07 16:08:00 18 /min [facility] Oxygen saturation in 2023-04-07 16:08:00 100 /min [facility] blood by [place] [facility] P[facility] oxim[facility] Body height 2023-04-07 03:00:00 182.9 cm [facility] Body weight 2023-04-07 01:16:00 110.995 kg [facility] BMI 2023-04-07 01:16:00 33.19 kg/m2 [facility] Systolic blood 2023-02-07 17:01:00 126 mm[Hg] [facility] Diastolic blood 2023-02-07 17:01:00 70 mm[Hg] [facility] Heart rate 2023-02-07 17:01:00 69 /min [facility] Body temperature 2023-02-07 17:01:00 36.56 Racheal [facility] Respiratory rate 2023-02-07 17:01:00 17 /min [facility] Oxygen saturation in 2023-02-07 17:01:00 97 /min [facility] Arterial blood by [place] [facility] [employer] prosper Pulse oxim[facility] Body weight 2023-02-07 08:47:00 101.969 kg [facility] BMI 2023-02-07 08:47:00 30.49 kg/m2 [facility] Body height 2023-02-03 01:01:00 182.9 cm [facility] Systolic blood 2022-12-28 06:49:00 183 mm[Hg] [facility] Diastolic blood 2022-12-28 06:49:00 97 mm[Hg] [facility] Heart rate 2022-12-28 06:49:00 73 /min [facility] Body temperature 2022-12-28 06:49:00 37 Racheal [facility] Respiratory rate 2022-12-28 06:49:00 19 /min [facility] Oxygen saturation in 2022-12-28 06:49:00 94 /min [facility] blood by [facility] prosper Pulse oximetry Branch Body height 2022-12-28 02:16:00 182.9 cm [facility] Body weight 2022-12-28 02:16:00 117.028 kg [facility] BMI 2022-12-28 02:16:00 34.99 kg/m2 [facility] Systolic blood 2022-07-11 17:30:00 143 mm[Hg] [facility] Diastolic blood 2022-07-11 17:30:00 77 mm[Hg] [facility] Heart rate 2022-07-11 17:30:00 61 /min [facility] Body temperature 2022-07-11 17:30:00 36.94 Racheal [facility] Respiratory rate 2022-07-11 17:30:00 13 /min [facility] Oxygen saturation in 2022-07-11 17:30:00 96 /min [facility] blood by [facility] prsoper Pulse oximetry Branch Body height 2022-07-11 15:46:00 182.9 cm [facility] Body weight 2022-07-11 15:46:00 116.574 kg [facility] BMI 2022-07-11 15:46:00 34.86 kg/m2 [facility] Systolic blood 2022-05-19 11:00:00 128 mm[Hg] [facility] Diastolic blood 2022-05-19 11:00:00 70 mm[Hg] [facility] Heart rate 2022-05-19 11:00:00 60 /min [facility] Respiratory rate 2022-05-19 11:00:00 16 /min [facility] Oxygen saturation in 2022-05-19 11:00:00 95 /min [facility] blood by [facility] prosper Pulse oximetry Branch Body temperature 2022-05-19 10:02:00 36.72 Racheal [facility] Body height 2022-05-19 10:02:00 182.9 cm [facility] Body weight 2022-05-19 10:02:00 114.306 kg [facility] BMI 2022-05-19 10:02:00 34.18 kg/m2 [facility] Systolic blood 2022-04-05 23:00:00 160 mm[Hg] [facility] Diastolic blood 2022-04-05 23:00:00 95 mm[Hg] [facility] Heart rate 2022-04-05 23:00:00 57 /min [facility] Respiratory rate 2022-04-05 23:00:00 11 /min [facility] Oxygen saturation in 2022-04-05 23:00:00 96 /min [facility] Arterial blood by [facility] prosper Pulse oximetry Branch Body temperature 2022-04-05 20:41:00 36.78 Racheal [facility] Body height 2022-04-05 20:41:00 182.9 cm [facility] Body weight 2022-04-05 20:41:00 145.151 kg [facility] BMI 2022-04-05 20:41:00 43.40 kg/m2 [facility] Systolic blood 2021-12-10 20:12:00 154 mm[Hg] [facility] Diastolic blood 2021-12-10 20:12:00 75 mm[Hg] [facility] Heart rate 2021-12-10 20:12:00 74 /min [facility] Respiratory rate 2021-12-10 20:08:00 22 /min [facility] Body height 2021-12-10 20:08:00 182.9 cm [facility] Body weight 2021-12-10 20:08:00 116.937 kg [facility] BMI 2021-12-10 20:08:00 34.96 kg/m2 [facility] Oxygen saturation in 2021-12-10 20:08:00 95 /min [facility] blood by [facility] Pulse oximetry Branch BP Systolic 2022-09-13 08:40:00 138 mm[Hg] BP Diastolic 2022-09-13 08:40:00 77 mm[Hg] Weight Measured 2022-09-13 08:40:00 263.80 pounds Height Measured 2022-09-13 08:40:00 71.00 inches Body Temperature 2022-09-13 08:40:00 97.70 degrees Heart Rate 2022-09-13 08:40:00 69.00 /min Respiratory Rate 2022-09-13 08:40:00 17.00 /min BP Systolic 2022-08-30 09:41:00 193 mm[Hg] BP Diastolic 2022-08-30 09:41:00 80 mm[Hg] Weight Measured 2022-08-30 09:41:00 255.50 pounds Height Measured 2022-08-30 09:41:00 71.00 inches Body Temperature 2022-08-30 09:41:00 98.30 degrees Heart Rate 2022-08-30 09:41:00 70.00 /min Respiratory Rate 2022-08-30 09:41:00 18.00 /min BP Systolic 2022-08-18 09:20:00 155 mm[Hg] BP Diastolic 2022-08-18 09:20:00 79 mm[Hg] Weight Measured 2022-08-18 09:20:00 255.20 pounds Height Measured 2022-08-18 09:20:00 71.00 inches Body Temperature 2022-08-18 09:20:00 97.20 degrees Heart Rate 2022-08-18 09:20:00 62.00 /min Respiratory Rate 2022-08-18 09:20:00 24.00 /min BP Systolic 2022-08-02 08:12:00 153 mm[Hg] BP Diastolic 2022-08-02 08:12:00 76 mm[Hg] Weight Measured 2022-08-02 08:12:00 254.40 pounds Height Measured 2022-08-02 08:12:00 71.00 inches Body Temperature 2022-08-02 08:12:00 98.40 degrees Heart Rate 2022-08-02 08:12:00 68.00 /min Respiratory Rate 2022-08-02 08:12:00 BP Systolic 2022-07-19 08:30:00 142 mm[Hg] BP Diastolic 2022-07-19 08:30:00 76 mm[Hg] Weight Measured 2022-07-19 08:30:00 259.80 pounds Height Measured 2022-07-19 08:30:00 71.00 inches Body Temperature 2022-07-19 08:30:00 97.50 degrees Heart Rate 2022-07-19 08:30:00 67.00 /min Respiratory Rate 2022-07-19 08:30:00 24.00 /min Body Temperature 2022-07-05 09:18:00 97.40 degrees Heart Rate 2022-07-05 09:18:00 62.00 /min Respiratory Rate 2022-07-05 09:18:00 BP Systolic 2022-07-05 09:18:00 172 mm[Hg] BP Diastolic 2022-07-05 09:18:00 92 mm[Hg] Weight Measured 2022-07-05 09:18:00 261.80 pounds Height Measured 2022-07-05 09:18:00 71.00 inches BP Systolic 2022-06-23 09:20:00 150 mm[Hg] BP Diastolic 2022-06-23 09:20:00 80 mm[Hg] Weight Measured 2022-06-23 09:20:00 255.00 pounds Height Measured 2022-06-23 09:20:00 71.00 inches Body Temperature 2022-06-23 09:20:00 97.30 degrees Heart Rate 2022-06-23 09:20:00 69.00 /min Respiratory Rate 2022-06-23 09:20:00 BP Systolic 2022-06-09 08:22:00 135 mm[Hg] BP Diastolic 2022-06-09 08:22:00 70 mm[Hg] Weight Measured 2022-06-09 08:22:00 257.80 pounds Height Measured 2022-06-09 08:22:00 71.00 inches Body Temperature 2022-06-09 08:22:00 97.40 degrees Heart Rate 2022-06-09 08:22:00 68.00 /min Respiratory Rate 2022-06-09 08:22:00 BP Systolic 2022-05-26 08:14:00 157 mm[Hg] BP Diastolic 2022-05-26 08:14:00 82 mm[Hg] Weight Measured 2022-05-26 08:14:00 251.00 pounds Height Measured 2022-05-26 08:14:00 71.00 inches Body Temperature 2022-05-26 08:14:00 97.50 degrees Heart Rate 2022-05-26 08:14:00 62.00 /min Respiratory Rate 2022-05-26 08:14:00 BP Diastolic 2022-05-12 08:12:00 86 mm[Hg] Weight Measured 2022-05-12 08:12:00 257.40 pounds Height Measured 2022-05-12 08:12:00 71.00 inches Body Temperature 2022-05-12 08:12:00 97.40 degrees Heart Rate 2022-05-12 08:12:00 61.00 /min Respiratory Rate 2022-05-12 08:12:00 BP Systolic 2022-05-12 08:12:00 154 mm[Hg] Procedures Procedure Date / Time Performing Clinician Source Performed TRANSTHORACIC ECHO (TTE) 2023-04-07 14:02:00 Eliazar Florez [facility] COMPLETE [facility] URINALYSIS 2023-04-07 13:59:00 Aki Chowdary [facility] TROPONIN I 2023-04-07 09:10:00 Eliazar Florez [facility] BASIC METABOLIC PANEL 2023-04-07 09:10:00 Omid Hodge [facility] (NA, K, CL, CO2, Medical Branch GLUCOSE, BUN, CREATININE, CA) LIPID PANEL 2023-04-07 09:10:00 Eliazar Florez [facility] ([id number])(TOTAL Medical Branch CHOLESTEROL, TRIGLYCERIDES, HDL) CBC WITHOUT DIFF 2023-04-07 09:10:00 Omid Hodge [facility] TROPONIN I 2023-04-07 00:11:00 Aki Chowdary [facility] THYROID STIMULATING 2023-04-07 00:11:00 Omid Hodge [facility] HORMONE [facility] XR CHEST 1 VW 2023-04-06 22:10:44 Aki Chowdary [facility] HB ECG ROUTINE & RHYTHM 2023-04-06 22:04:59 Aki Chowdary [facility] STRIP [facility] MAGNESIUM 2023-04-06 21:44:00 Aki Chowdary [facility] TROPONIN I 2023-04-06 21:44:00 Aki Chowdary [facility] COMP. METABOLIC PANEL 2023-04-06 21:44:00 Aki Chowdary [facility] ([id number]) [facility] CBC WITH DIFF 2023-04-06 21:44:[address] [facility] GLYCOSYLATED HEMOGLOBIN 2023-04-06 21:44:00 Ayesha [facility] ([id number]) [facility] N-TERMINAL PRO-BNP 2023-04-06 21:44:[address] [facility] NOTICE OF PRIVACY 2023-04-06 21:26:41 Doctor Unassigned, No [facility] PRACTICES Name Medical Branch CONSENT/REFUSAL FOR 2023-04-06 21:25:21 Doctor Unassigned, No [facility] DIAGNOSIS AND TREATMENT Name [facility] MAGNESIUM 2023-02-07 09:38:00 [facility] BASIC METABOLIC PANEL 2023-02-07 09:38:[address] [facility] (NA, K, CL, CO2, [facility] GLUCOSE, BUN, CREATININE, CA) CBC WITH DIFF 2023-02-07 09:38:00 [facility] XR ABDOMEN 1 VW 2023-02-06 16:56:[address] [facility] [address] ABDOMEN PELVIS W 2023-02-06 13:52:00 Angel Jaimes [facility] CONTRAST [facility] MAGNESIUM 2023-02-06 09:51:00 [facility] BASIC METABOLIC PANEL 2023-02-06 09:51:00 Theodore [facility] (NA, K, CL, CO2, [facility] GLUCOSE, BUN, CREATININE, CA) IRON PANEL 2023-02-06 09:51:00 Honorio Pope [facility] CBC WITH DIFF 2023-02-06 09:51:00 [facility] XR KUB 2023-02-05 10:17:31 [facility] MAGNESIUM 2023-02-05 09:14:00 [facility] BASIC METABOLIC PANEL 2023-02-05 09:14[facility] ([facility], K, CL, CO2, [facility] GLUCOSE, BUN, CREATININE, CA) CBC WITH DIFF 2023-02-05 09:14:00 [facility] XR SMALL BOWEL SERIES 2023-02-04 21:07:12 Theodore [facility] BASIC METABOLIC PANEL 2023-02-04 09:38:00 Honorio Pope [facility] (NA, K, CL, CO2, [facility] GLUCOSE, BUN, CREATININE, CA) CBC WITH DIFF 2023-02-04 09:38:00 Honorio Pope [facility] XR ABDOMEN 1 VW 2023-02-03 21:49:19 [facility] MAGNESIUM 2023-02-03 09:24:00 [facility] BASIC METABOLIC PANEL 2023-02-03 09:24:00 [facility] (NA, K, CL, CO2, [facility] GLUCOSE, BUN, CREATININE, CA) CBC WITH DIFF 2023-02-03 09:24:00 Alyson [facility] XR KUB 2023-02-02 22:41:[address] [facility] CT ABDOMEN PELVIS W 2023-02-02 20:14:23 Ly Araujo [facility] CONTRAST [facility] LIPASE 2023-02-02 19:20:00 Van [facility] COMP. METABOLIC PANEL 2023-02-02 19:20:00 Ly Araujo [facility] ([id number]) [facility] CBC WITH DIFF 2023-02-02 19:20:[address] [facility] EKG-12 LEAD 2022-12-28 06:33:26 Jamie Loera [facility] LIPASE 2022-12-28 04:15:00 [facility] 2022-12-28 04:15:00 Jamie Loera [facility] COMP. METABOLIC PANEL 2022-12-28 04:15:00 Jamie Loera [facility] ([id number]) [facility] CBC WITH DIFF 2022-12-28 04:15:00 [facility]MINAL [facility]-BNP 2022-12-28 04:15:00 Jamie Loera [facility] TROPONIN I 2022-07-11 17:06:00 Keerthi [facility] XR CHEST 1 VW 2022-07-11 16:02:47 Keerthi [facility] LIPASE 2022-07-11 15:49:00 Keerthi [facility] TROPONIN I 2022-07-11 15:49:00 [facility] COMP. METABOLIC PANEL 2022-07-11 15:49:00 [facility] ([id number]) [facility] CBC WITH DIFF 2022-07-11 15:49:00 Keerthi [facility] PROTHROMBIN TIME / INR 2022-07-11 15:49:00 Ke[facility]thi [facility]ike [facility] ACTIVATED PARTIAL 2022-07-11 15:49:00 Keerthi Pike [facility] N-TERMINAL PRO-BNP 2022-07-11 15:49:[address] [facility] COVID-19 (ID NOW RAPID 2022-07-11 15:49:00 Keerthi Pike [facility] URINE DRUG (IMMUNOASSAY) 2022-05-19 10:33:00 Keerthi Pike [facility] nch SCREEN W/O REFLEX LIPASE 2022-05-19 10:20:00 Keerthi [facility]ike [facility] TROPONIN I 2022-05-19 10:20:00 Keerthi [facility]ike [facility] COMP. METABOLIC PANEL 2022-05-19 10:20:00 Keerthi Pike [facility] ([id number]) [facility] CBC WITH DIFF 2022-05-19 10:20:00 Keerthi Pike [facility] PROTHROMBIN TIME / INR 2022-05-19 10:20:00 Keerthi Pike [facility] ACTIVATED PARTIAL 2022-05-19 10:20:00 Keerthi Pike [facility] N-TERMINAL PRO-BNP 2022-05-19 10:20:[address] [facility] COVID-19 (ID NOW RAPID 2022-05-19 10:20:00 Keerthi Pike [facility] TESTING) [facility] XR CHEST 1 VW 2022-05-19 10:10:19 Keerthi Pike [facility] CT CHEST PULMONARY 2022-04-05 22:20:00 Krystal Lyon [facility] ANGIOGRAM Medical Branch LIPASE 2022-04-05 21:16:00 Krystal Lyon [facility] TROPONIN I 2022-04-05 21:16:00 Krystal [facility] COMP. METABOLIC PANEL 2022-04-05 21:16:00 Krystal Lyon [facility] ([id number]) [facility] CBC WITH DIFF 2022-04-05 21:16:00 Krystal Lyon [facility] D-DIMER 2022-04-05 21:16:00 Krystal Lyon [facility] N-TERMINAL PRO-BNP 2022-04-05 21:16:[address] [facility] XR CHEST 2 VW 2022-04-05 21:14:08 Krystal [facility] HB ECG ROUTINE & RHYTHM 2022-04-05 20:42:[address] [facility] NOTICE OF PRIVACY 2022-04-05 20:27:51 Doctor Unassigned, No [facility] CONSENT/REFUSAL FOR 2022-04-05 20:27:36 [facility] Name [facility] Plan of Care Planned Activity Planned Date Details Comments Source Goal Plan of Care Note [code = 26457-5] Goal Plan of Care Note [code = 01835-4] Goal Plan of Care Note [code = 64045-9] Goal Plan of Care Note [code = 21477-7] Goal Plan of Care Note [code = 82636-3] Encounters Start End Encounter Admission Attending Care Care Encounter Source Date/Time Date/Time Type Type Clinicians Facility Department ID 2023-05-02 2023-05-02 Outpatient SFA SFA [id number] [place] 10:32:02 10:32:02 0620 [facility] 2023-04-18 2023-04-18 Outpatient SFA SFA [id number] [place] 09:52:32 09:52:32 0606 [facility] 2023-04-06 2023-04-07 Outpatient X [facility] [id number] Univers 16:30:00 14:00:00 ELIAZAR weeks [facility] 2023-04-06 2023-04-07 Emergency Hari Aki Samantha [facility] [id number]. [id number] Univers 16:30:00 14:00:00 Eliazar Florez [place] 350.1.13.10 [facility] 4.2.7.2.686 [facility] [id number] [facility] 081 Branch 2023-04-04 2023-04-04 Outpatient SFA SFA [id number] [place] 11:08:44 11:08:44 0523 [facility] 2023-03-21 2023-03-21 Outpatient SFA SFA [id number] [place] 09:43:29 09:43:29 0509 [facility] 2023-03-07 2023-03-07 Outpatient SFA SFA [id number] [place] 10:40:33 10:40:33 0425 [facility] 2023-02-21 2023-02-21 Outpatient SFA SFA [id number] [place] 10:26:30 10:26:30 0411 [place] 2023-02-08 2023-02-08 Outpatient [facility] [id number] [place] 14:39:24 14:39:24 0329 [facility] 2023-02-08 2023-02-08 Transition PATRICIO Kaur [id number] Univers 00:00:00 00:00:00 of Care Amaya YOUNGBLOOD 350.1.13.10 [place] [id number] [facility] 403 Branch 2023-02-02 2023-02-07 Inpatient X AYESHA [facility] KEISHA [id number] Univers 12:52:00 15:29:00 OMID weeks [facility] 2023-02-02 2023-02-07 [facility] 1.2.84 0.114 [id number] Univers 12:52:00 15:29:00 Encounter Pablito Hodgesarbjit ALDANA 350.1.13.10 ity of [facility] [place] [id number] [facility] 081 Branch 2023-01-24 2023-01-24 Outpatient [facility] [id number] [place] 08:45:29 08:45:29 0314 [facility] 2023-01-10 2023-01-10 Outpatient [facility] [id number] [place] 14:26:29 14:26:29 0228 [facility] 2022-12-27 2022-12-28 Emergency X FERNANDOTN [facility] ERT [id number] Univers 20:28:00 00:52:00 JAMIE weeks [facility] 2022-12-27 2022-12-28 Emergency [facility] [id number] Univers 20:28:00 00:52:00 Jamie ALDANA 350.1.13.10 ity of [facility] [place] [id number] [facility] 084 Branch 2022-12-27 2022-12-27 Outpatient [facility] [id number] [place] 09:57:18 09:57:18 0214 [place] 2022-12-14 2022-12-14 Outpatient SFA SFA [id number] [place] 13:28:46 13:28:46 0201 [place] 2022-11-29 2022-11-29 Outpatient SFA SFA [id number] [place] 09:39:47 09:39:47 0117 [place] 2022-11-09 2022-11-09 Outpatient SFA SFA [id number] [place] 13:23:04 13:23:04 1228 [place] 2022-10-25 2022-10-25 Outpatient SFA SFA [id number] [place] 13:51:34 13:51:34 1213 [place] 2022-10-11 2022-10-11 Outpatient SFA SFA [id number] [place] 15:21:32 15:21:32 1129 [place] 2022-09-27 2022-09-27 Outpatient SFA SFA [id number] [place] 14:11:20 14:11:20 1115 [place] 2022-09-13 2022-09-13 Outpatient SFA SFA [id number] [place] 08:39:30 08:39:30 1101 [place] 2022-09-13 2022-09-13 Outpatient [id number] 00:00:00 00:00:00 Visit [id number] 2022-08-30 2022-08-30 Outpatient SFA SFA [id number] [place] 09:30:56 09:30:56 [address] [place] 2022-08-29 2022-08-29 Outpatient R [facility] [id number] [facility] 10:00:00 10:00:00 PETE weeks [facility] 2022-08-18 2022-08-18 Outpatient SFA SFA [id number] [place] 09:05:22 09:05:22 [address] [place] 2022-07-11 2022-07-11 Emergency X [facility] ERT [id number] Univers 10:37:00 12:53:00 KEERTHI weeks [facility] 2022-07-11 2022-07-11 Emergency [facility] [id number] [facility] 10:37:00 12:53:00 Keerthi JOVAN [id number] i ty of [place] [id number] [facility] [id number] [address] 2022-05-19 2022-05-19 Emergency X [facility] ERT [id number] Univers 04:59:00 06:56:00 KEERTHI ity of [facility] 2022-05-19 2022-05-19 Emergency [facility] [id number] Univers 04:59:00 06:56:00 Keerthi JOVAN 350.1.13.10 i ty of [place] 4.2.7.2.686 [facility] [phone] [address] 2022-04-05 2022-04-05 Emergency X [facility] ERT [id number] Univers 15:42:00 18:10:00 KRYSTAL itcarisa of [facility] 2022-04-05 2022-04-05 Emergency [facility] 1.2.105.299 [id number] Univers 15:42:00 18:10:00 Krystal ALDANA 350.1.13.10 i ty of [place] 4.2.7.2.[address] [place] [phone] 2022-04-05 2022-04-05 Orders Doctor ARANGO 1.2.840.114 [id number] Univers 00:00:00 00:00:00 Only Unassigned, JONATHAN 350.1.13.10 ity of [place] [facility] 4.2.7.2.[address] [place] [address] [phone] [facility] [address] 2021-12-10 2021-12-10 Outpatient R CARLOS EDUARDO NIXON [facility] 10 [id number] Univers 14:30:00 15:42:03 CARLOS EDUARDO NIXON i ty of [facility] 2021-12-10 2021-12-10 Office [facility] 1.2.840.114 [id number] Univers 14:30:00 15:00:00 Visit Carlos Eduardo ALDANA 350.1.13.10 i [place] [phone] Sc dical NAL [address] [place] [address] 2021-12-10 2021-12-10 Outpatient R CARLOS EDUARDO NIXON [facility] 10 [id number] Univers 14:30:00 14:30:00 CARLOS EDUARDO NIXON i ty of [facility] 2021-12-10 2021-12-10 Letter Tiffani [facility] 1.2.840.114 [id number] Univers 00:00:00 00:00:00 (Out) Carlos Eduardo ALDANA 350.1.13.10 i ty [place] [phone] [facility] NAL [address] [place] [address] 2021-12-02 2021-12-03 Outpatient [facility] KEISHA [id number] Univers 20:43:00 18:14:00 ADNAN ity [facility] 2021-12-02 2021-12-03 Emergency Keerthi Pike [facility] 1.2.840. 114 [id number] Univers 20:43:00 18:14:00 MarandaLupis altman 350.1.13.10 ity of [place] 4.2.7.2.686 [facility] [phone] [address] 2021-12-02 2021-12-03 Outpatient [facility] KEISHA [id number] Univers 20:43:00 18:14:00 ADNAN ity of [facility] 2021-11-26 2021-11-26 Emergency [facility] ERT [id number] Univers 13:21:00 15:07:00 CHRISTALFREDER it y of [facility] 2021-11-26 2021-11-26 Emergency [facility] [id number] Univers 13:21:00 15:07:00 Stephen ALDANA 350.1.13.10 [place] [id number] [address] 2021-11-26 2021-11-26 Emergency [facility] ERT [id number] Univers 13:21:00 15:07:00 STEPHEN younger of [facility] 2021-11-22 2021-11-22 Telephone [facility] 1.2.685.798 [id number] Univers 00:00:00 00:00:00 Carlos Eduardo ALDANA 350.1.13.10 i ty [place] [phone] Sc dical [facility] [address] BUILDING 2021-11-18 2021-11-18 Emergency X SINGER [facility] ERT [id number] Univers 08:44:00 11:59:00 NOE weeks [facility] 2021-11-18 2021-11-18 Emergency [facility] 1.2.142.684 [id number] Univers 08:44:00 11:59:00 Noe ALDANA 350.1.13.10 i ty [place] [id number] [address] 2021-10-04 2021-10-04 Emergency X SINGER [facility] ERT [id number] Univers 12:35:00 14:13:00 NOE weeks [facility] 2021-10-04 2021-10-04 Emergency [facility] 1.2.304.078 [id number] Univers 12:35:00 14:13:00 Noe ALDANA 350.1.13.10 i ty [place] [id number] [address] 2021-10-01 2021-10-01 Telephone Tawanda [facility] 1.2.622.695 [id number] Univers 00:00:00 00:00:00 Sendil [facility] 350.1.13.10 ity of [place] [id number] [address] OFFICE BUILDING 2021-09-30 2021-09-30 Outpatient R TAWANDA [facility] [id number] Univers 08:36:25 23:59:00 SENDIL micky [facility] 2021-09-30 2021-09-30 [facility] 1.2.840.114 [id number] [facility] 08:36:25 23:59:00 Encounter Zan ALDANA 350.1.13.10 [place] [phone] [facility] [address] 2021-09-24 2021-09-24 Telephone [facility] [id number] [id number] Univers 00:00:00 00:00:00 Sendmerlin ALDANA 350.1.13.10 ity of [place] [id number] Sc dichi NAL [address] [place] [address] 2021-09-23 2021-09-23 [facility] 1.2.088.667 [id number] 2017 [facility] 00:00:00 00:00:00 Zan ALDANA 350.1.13.10 ity [place] [phone] [address] 2021-09-17 2021-09-17 Outpatient [facility] [id number] Univers 13:00:00 13:26:03 SENDIL ity of [facility] 2021-09-17 2021-09-17 Office [facility] 1.2.840.114 [id number] Univers 12:55:38 13:26:03 Visit Zan ALDANA 350.1.13.10 ity [place] [phone] [address] 2021-09-17 2021-09-17 Orders Doctor CONCHITA 1.2.840.114 [id number] Univers 00:00:00 00:00:00 Only Unassigned, JONATHAN 350.1.13.10 ity of [place] [facility] 4.2.7.2.686 Amari as [phone] [facility] [address] 2021-09-13 2021-09-13 [facility] 1.2.642.062 [id number] Univers 00:00:00 00:00:00 Sendil TinoLakesha ALDANA 350.1.13.10 ity of [facility] 4.2.7.2.686 [facility] [phone] [place] [address] [facility] 2021-09-09 2021-09-09 Emergency X PIKE, [facility] ERT [id number] Univers 13:03:00 18:05:00 KEERTHI ity of [facility] 2021-09-09 2021-09-09 Emergency [facility] 1.2.065.643 [id number] Univers 13:03:00 18:05:00 Keerthi ALDANA 350.1.13.10 i ty of [facility] 4.2.7.2.686 [facility] [id number] [address] 2021-09-07 2021-09-08 Emergency [facility] 1.2.595.436 [id number] Univers 21:59:00 01:11:00 Jamie Aldana 350.1.13.10 ity of [place] 4.2.7.2.686 [facility] [phone] [address] 2021-09-07 2021-09-08 Emergency X [facility] ERT [id number] Univers 21:59:00 01:11:00 JAMIE ity [facility] 2021-08-09 2021-08-10 Emergency Aki Chowdary [facility] 1.2.840. 114 [id number] Univers 01:01:00 13:18:00 Lupis Echevarria 350.1.13.10 ity of [place] 4.2.7.2.686 [facility] [phone] [address] 2021-08-09 2021-08-09 Emergency X Aki CHOWDARY [facility] ERT [id number] Univers 01:01:00 01:01:00 ity of [facility] 2021-06-19 2021-06-20 [facility] 1.2.561.081 [id number] Univers 23:55:00 01:40:00 Jamie Aldana 350.1.13.10 ity of [place] 4.2.7.2.686 [facility] [phone] [place] [address] [address] 2021-06-19 2021-06-19 Emergency [facility] ERT [id number] Univers 23:55:00 23:55:00 DEBRAJAYNADORITA weeks [facility] 2020-11-09 2020-11-09 Emergency [facility] [id number] Univers 14:54:00 17:37:00 LINA weeks [facility] 2020-11-09 2020-11-09 Emergency [facility] [id number] [id number] Univers 14:54:00 17:37:00 Lina Aldana 350.1.13.10 micky [facility] 4.2.7.2.686 [facility] [phone] [address] Results Test Description Test Time Test Comments Results Result Comments Source Troponin I 2023-04-07 10:34:36 Test Item Value Reference Range Interpretation Comme nts TROPONIN I (test code = 0716172690) <=0.034 SONALI (test code = SONALI) Reference (Normal) [...] to patient's use of biotin. Lab Interpretation (test code = Normal 45539-8) [facility] (Total Cholesterol, Triglycerides, HDL)2023-04-07 10:24:40 Test Item Value Reference Range Interpretation Comments CHOL (test code = 5429277097) 109 mg/dL 120-200 L HDL (test code = 5905040298) 34 mg/dL >=40 L HDLC RATIO (test code = 2630530768) 3.2 <=5.0 TRIG (test code = 7260406393) 45 mg/dL 30-170 LDL CHOL (test code = 30731-1) 66 mg/dL <=160 VLDL (test code = 0192824064) 9 mg/dL 5-60 Lab Interpretation (test code = Abnormal 00152-0) [facility] METABOLIC PANEL (NA, K, CL, CO2, GLUCOSE, BUN, CREATININE, CA)2023-04-07 10:24:39 Test Item Value Reference Range Interpretation Comments NA (test code = 138 mmol/L 135-145 6547200146) K (test code = 3.9 mmol/L 3.5-5.0 0295546324) CL (test code = 105 mmol/L 98-108 5903929931) CO2 TOTAL (test code = 22 mmol/L 23-31 L 5679254170) AGAP (test code = 11 2-16 7799141924) BUN (test code = 19 mg/dL 7-23 3557969805) GLUCOSE (test code = 107 mg/dL 70-110 0582621893) CREATININE (test code = 0.87 mg/dL 0.60-1.25 9123369189) CALCIUM (test code = 8.5 mg/dL 8.6-10.6 L 4630060666) eGFR (test code = 93.7 mL/min/1.73m2 6238805209) SONALI (test code = SONALI) Association of [...] tests). Lab Interpretation Abnormal (test code = 51835-4) [facility] WITHOUT [id number] 10:07:32 Test Item Value Reference Range Interpretation Comments WBC (test code = 6690-2) 5.57 See_Comment [A utomated message] The system [employer] generated this result transmit erich reference range : 4.20 - 10.70 10*3/?L. The reference range was not used to interpret this result as normal/abnormal . RBC (test code = 789-8) 3.53 See_Comment L [Au tomated message] The system [employer] generated this result transmit erich reference range : 4.26 - 5.52 10* 6/?L. The reference r parris was not used to interpret this result as normal/abnormal . HGB (test code = 718-7) 7.4 g/dL 12.2-16.4 L HCT (test code = 4544-3) 25.0 % 38.4-49.3 L MCH (test code = 785-6) 21.0 pg 26.1-32.7 L MCV (test code = 787-2) 70.8 fL 81.7-95.6 L MCHC (test code = 786-4) 29.6 g/dL 31.2-35.0 L PLT (test code = 777-3) 298 See_Comment [Au tomated message] The system [employer] generated this result transmit erich reference range : 150 - 328 10*3/?L. The reference range was not used to interpret this result as normal/abnormal . MPV (test code = 10.0 fL 9.8-13.0 67813-6) RDW-CV (test code = 16.3 % 12.1-15.4 H 788-0) RDW-SD (test code = 42.2 fL 38.5-51.6 76127-0) NRBC x10^3 (test code = See_Comment [Au tomated message] 3321490217) The system [employer] generated this result transmit erich reference range : 10*3/?L. The reference range was not used to interpret this result as normal/abnormal . NRBC/100 WBC (test code 0.0 See_Comment [Au tomated message] = 8573170662) The system [employer] generated this result transmit erich reference range : 0.0 - 10.0 /100 WBC s. The reference r parris was not used to interpret this result as normal/abnormal . IPF % (test code = 5102312589) Lab Interpretation (test Abnormal code = 34730-5) [facility]2023-04-07 02:43:25 Test Item Value Reference Range Interpretation Comments HGB A1C (test code = 5.7 % 4.0-5.7 4548-4) SONALI (test code = SONALI) Reference RangesNormal: <5.7%Prediabetes: 5.7 - 6.4%Diabetes: > 6.5% Lab Interpretation (test Normal code = 82203-0) [facility] [id number] 22:33:33 Test Item Value Reference Range Interpretation Comments TROPONIN I (test code = <=0.034 9230024189) SONALI (test code = SONALI) Reference (Normal) [...] biotin. Lab Interpretation Normal (test code = 27806-3) [id number] 22:30:14 Test Item Value Reference Range Interpretation Comments NT-proBNP (test code = 311 pg/mL <=125 H 5267846526) SONALI (test code = SONALI) Biotin has been reported to cause a negative bias, interpret results relative to patient's use of biotin. Lab Interpretation (test Abnormal code = 42419-6) [facility] 22:22:12 Test Item Value Reference Range Interpretation Comments MAGNESIUM (test code = 6736586749) 1.9 mg/dL 1.7-2.4 Lab Interpretation (test code = Normal 10347-9) [facility] (87721)2023-04-06 22:21:52 Test Item Value Reference Range Interpretation Comments NA (test code = 139 mmol/L 135-145 5188165908) K (test code = 4.2 mmol/L 3.5-5.0 4226736063) CL (test code = 106 mmol/L 98-108 4105852678) CO2 TOTAL (test code = 22 mmol/L 23-31 L 9111778190) AGAP (test code = 11 2-16 7293691907) BUN (test code = 16 mg/dL 7-23 4841463541) GLUCOSE (test code = 96 mg/dL 70-110 7461868161) CREATININE (test code = 0.99 mg/dL 0.60-1.25 1084334411) TOTAL BILI (test code = 0.3 mg/dL 0.1-1.0 2794846688) CALCIUM (test code = 8.8 mg/dL 8.6-10.6 8085619776) T PROTEIN (test code = 8.0 g/dL 6.3-8.2 0161163138) ALBUMIN (test code = 4.0 g/dL 3.5-5.0 1221405255) ALK PHOS (test code = 126 U/L 34-122 H 4457162920) ALTv (test code = 17 U/L 5-50 1742-6) AST(SGOT) (test code = 20 U/L 13-40 4766825154) eGFR (test code = 80.7 mL/min/1.73m2 4314732263) SONALI (test code = SONALI) Association of [...] tests). Lab Interpretation Abnormal (test code = 61206-3) [facility] WITH [id number] 22:03:29 Test Item Value Reference Range Interpretation Comments WBC (test code = 6.45 See_Comment [Automated 0444-2) message] The sy stem which generated this result transmitted reference range : 4.20 - 10.70 10*3/?L. The reference range was not used to interpret this result as normal/abnormal . RBC (test code = 3.75 See_Comment L [Automated 253-8) message] The sy stem which generated this result transmitted reference range : 4.26 - 5.52 10*6/?L. The reference range was not used to interpret this result as normal/abnormal . HGB (test code = 7.9 g/dL 12.2-16.4 L 718-7) HCT (test code = 26.5 % 38.4-49.3 L 4544-3) MCV (test code = 70.7 fL 81.7-95.6 L 787-2) MCH (test code = 21.1 pg 26.1-32.7 L 785-6) MCHC (test code = 29.8 g/dL 31.2-35.0 L 786-4) RDW-SD (test code = 41.4 fL 38.5-51.6 72356-3) RDW-CV (test code = 16.2 % 12.1-15.4 H 788-0) PLT (test code = 328 See_Comment [Automated 777-3) message] The sy stem which generated this result transmitted reference range : 150 - 328 10*3/ ?L. The reference r parris was not used to interpret this result as normal/abnormal . MPV (test code = 9.4 fL 9.8-13.0 L 20920-3) NRBC/100 WBC (test 0.0 See_Comment [Automat ed code = 9296587967) message] The system which generated this result transmitted reference range : 0.0 - 10.0 /100 WBCs. The refer ence range was not u sed to interpret th is result as normal/abnormal . NRBC x10^3 (test code See_Comment [Auto mated = 6715059356) message] The s ystem which generated this result transmitted reference range : 10*3/?L. The reference range was not used to interpret this result as normal/abnormal . GRAN MAT (NEUT) % 68.9 % (test code = 770-8) IMM GRAN % (test code 0.30 % = 6218416065) LYMPH % (test code = 12.9 % 736-9) MONO % (test code = 9.8 % 5905-5) EOS % (test code = 7.6 % 713-8) BASO % (test code = 0.5 % 706-2) GRAN MAT x10^3(ANC) 4.45 10*3/uL 1.99-6.95 (test code = 3364793540) IMM GRAN x10^3 (test 0.00-0.06 code = 1844803617) LYMPH x10^3 (test code 0.83 10*3/uL 1.09-3.23 L = 731-0) MONO x10^3 (test code 0.63 10*3/uL 0.36-1.02 = 742-7) EOS x10^3 (test code = 0.49 10*3/uL 0.06-0.53 711-2) BASO x10^3 (test code 0.03 10*3/uL 0.01-0.09 = 704-7) Lab Interpretation Abnormal (test code = 66334-0) [facility] with Qcvixgkvjelm8225-78-16 11:57:09 Test Item Value Reference Range Interpretation Comments WBC (test code = 3.08 See_Comment L [Automated 6690-2) message] The system which generated this result transmitted reference range : 4.20 - 10.70 10*3/?L. The reference range was not used to interpret this result as normal/abnormal . RBC (test code = 4.14 See_Comment L [Automated 789-8) message] The system which generated this result transmitted reference range : 4.26 - 5.52 10*6/?L. The reference range was not used to interpret this result as normal/abnormal . HGB (test code = 9.3 g/dL 12.2-16.4 L 718-7) HCT (test code = 30.2 % 38.4-49.3 L 4544-3) MCV (test code = 72.9 fL 81.7-95.6 L 787-2) MCH (test code = 22.5 pg 26.1-32.7 L 785-6) MCHC (test code = 30.8 g/dL 31.2-35.0 L 786-4) RDW-SD (test code = 38.4 fL 38.5-51.6 L 74511-6) RDW-CV (test code = 14.4 % 12.1-15.4 788-0) PLT (test code = 384 See_Comment H [Automated 777-3) message] The system which generated this result transmitted reference range : 150 - 328 10*3/?L. The reference range was not used to interpret this result as normal/abnormal . MPV (test code = 8.8 fL 9.8-13.0 L 07878-1) NRBC/100 WBC (test 0.0 See_Comment [Automat ed code = 1836316812) message] The system which generated this result transmitted reference range : 0.0 - 10.0 /100 WBCs. The reference range was not used to interpret this result as normal/abnormal . NRBC x10^3 (test code See_Comment [Auto mated = 2532271223) message] The system which generated this result transmitted reference range : 10*3/?L. The reference range was not used to interpret this result as normal/abnormal . GRAN MAT (NEUT) % 48.5 % (test code = 770-8) IMM GRAN % (test code 0.00 % = 9894953441) LYMPH % (test code = 19.8 % 736-9) MONO % (test code = 28.2 % 5905-5) EOS % (test code = 3.2 % 713-8) BASO % (test code = 0.3 % 706-2) GRAN MAT x10^3(ANC) 1.49 10*3/uL 1.99-6.95 L (test code = 5610439163) IMM GRAN x10^3 (test 0.00-0.06 code = 3229642378) LYMPH x10^3 (test 0.61 10*3/uL 1.09-3.23 L code = 731-0) MONO x10^3 (test code 0.87 10*3/uL 0.36-1.02 = 742-7) EOS x10^3 (test code 0.10 10*3/uL 0.06-0.53 = 711-2) BASO x10^3 (test code 0.01-0.09 = 704-7) BANDS (test code = MARKED INCREASED A 6064007756) DOHLE BODIES (test Present A code = 7792-5) Lab Interpretation Abnormal (test code = 04237-3) [facility] 11:43:27 Test Item Value Reference Range Interpretation Comments MAGNESIUM (test code = 8733958382) 1.9 mg/dL 1.7-2.4 Lab Interpretation (test code = Normal 20918-0) [facility] (NA, K, CL, CO2, GLUCOSE, BUN, CREATININE, CA)2023-02-03 10:20:19 Test Item Value Reference Range Interpretation Comments NA (test code = 133 mmol/L 135-145 L 9195120233) K (test code = 4.0 mmol/L 3.5-5.0 7787320785) CL (test code = 98 mmol/L 98-108 0937006544) CO2 TOTAL (test code = 26 mmol/L 23-31 4108286507) AGAP (test code = 9 2-16 8641425261) BUN (test code = 22 mg/dL 7-23 1764914620) GLUCOSE (test code = 109 mg/dL 70-110 5427988157) CREATININE (test code = 0.98 mg/dL 0.60-1.25 3897996966) CALCIUM (test code = 8.0 mg/dL 8.6-10.6 L 8634035155) eGFR (test code = 81.6 mL/min/1.73m2 4976756880) SONALI (test code = SONALI) Association of [...] tests). Lab Interpretation Abnormal (test code = 39831-0) [facility]. METABOLIC PANEL (58765)2023-02-02 20:23:45 Test Item Value Reference Range Interpretation Comments NA (test code = 135 mmol/L 135-145 5574289524) K (test code = 4.8 mmol/L 3.5-5.0 9762929922) CL (test code = 96 mmol/L 98-108 L 8514541585) CO2 TOTAL (test code = 26 mmol/L 23-31 4726034180) AGAP (test code = 13 2-16 3240059658) BUN (test code = 21 mg/dL 7-23 2210635710) GLUCOSE (test code = 122 mg/dL 70-110 H 4945919576) CREATININE (test code = 0.90 mg/dL 0.60-1.25 9796280766) TOTAL BILI (test code = 0.8 mg/dL 0.1-1.7 0859009386) CALCIUM (test code = 9.5 mg/dL 8.6-10.6 9515835797) T PROTEIN (test code = 9.5 g/dL 6.3-8.2 H 3559880121) ALBUMIN (test code = 4.7 g/dL 3.5-5.0 8228475392) ALK PHOS (test code = 126 U/L 34-122 H 0151217748) ALTv (test code = 25 U/L 5-50 1742-6) AST(SGOT) (test code = 33 U/L 13-40 6202262052) eGFR (test code = 90.1 mL/min/1.73m2 5072760648) SONALI (test code = SONALI) Association of [...] tests). Lab Interpretation Abnormal (test code = 00999-2) [facility] 20:23[facility]25 Test Item Value Reference Range Interpretation Comments LIPASE (test code = 1684999559) 215 U/L 0-220 Lab Interpretation (test code = Normal 97382-3) [facility] WITH [id number] 20:09:42 Test Item Value Reference Range Interpretation Comments WBC (test code = 7.54 See_Comment [Automated 4111-2) message] The sy stem which generated this result transmitted reference range : 4.20 - 10.70 10*3/?L. The reference range was not used to interpret this result as normal/abnormal . RBC (test code = 4.77 See_Comment [Automated 895-8) message] The sy stem which generated this result transmitted reference range : 4.26 - 5.52 10*6/?L. The reference range was not used to interpret this result as normal/abnormal . HGB (test code = 10.8 g/dL 12.2-16.4 L 718-7) HCT (test code = 35.3 % 38.4-49.3 L 4544-3) MCV (test code = 74.0 fL 81.7-95.6 L 787-2) MCH (test code = 22.6 pg 26.1-32.7 L 785-6) MCHC (test code = 30.6 g/dL 31.2-35.0 L 786-4) RDW-SD (test code = 38.3 fL 38.5-51.6 L 34882-0) RDW-CV (test code = 14.4 % 12.1-15.4 788-0) PLT (test code = 456 See_Comment H [Automated 777-3) message] The sy stem which generated this result transmitted reference range : 150 - 328 10*3/ ?L. The reference r parris was not used to interpret this result as normal/abnormal . MPV (test code = 9.1 fL 9.8-13.0 L 18849-1) NRBC/100 WBC (test 0.0 See_Comment [Automat ed code = 2593317026) message] The system which generated this result transmitted reference range : 0.0 - 10.0 /100 WBCs. The refer ence range was not u sed to interpret th is result as normal/abnormal . NRBC x10^3 (test code See_Comment [Auto mated = 7690919831) message] The s ystem which generated this result transmitted reference range : 10*3/?L. The reference range was not used to interpret this result as normal/abnormal . GRAN MAT (NEUT) % 81.7 % (test code = 770-8) IMM GRAN % (test code 0.10 % = 1061097825) LYMPH % (test code = 5.7 % 736-9) MONO % (test code = 11.3 % 5905-5) EOS % (test code = 1.1 % 713-8) BASO % (test code = 0.1 % 706-2) GRAN MAT x10^3(ANC) 6.16 10*3/uL 1.99-6.95 (test code = 5134128788) IMM GRAN x10^3 (test 0.00-0.06 code = 3256536765) LYMPH x10^3 (test code 0.43 10*3/uL 1.09-3.23 L = 731-0) MONO x10^3 (test code 0.85 10*3/uL 0.36-1.02 = 742-7) EOS x10^3 (test code = 0.08 10*3/uL 0.06-0.53 711-2) BASO x10^3 (test code 0.01-0.09 = 704-7) Lab Interpretation Abnormal (test code = 03656-2) [id number]29 Test Item Value Reference Range Interpretation Comments NT-proBNP (test code = 110 pg/mL <=125 [id number]) SONALI (test code = SONALI) Biotin has been reported to cause a negative bias, interpret results relative to patient's use of biotin. Lab Interpretation (test Normal code = 17994-4) [id number]11[facility]24 Test Item Value Reference Range Interpretation Comments TROPONIN I (test code = 0.002 ng/mL <=0.034 [id number]) SONALI (test code = SONALI) Reference (Normal) [...] biotin. Lab Interpretation Normal (test code = 97190-2) [facility] (31972)2022-12-28 05:00:03 Test Item Value Reference Range Interpretation Comments NA (test code = 137 mmol/L 135-145 7560552254) K (test code = 4.5 mmol/L 3.5-5.0 0880158067) CL (test code = 100 mmol/L 98-108 2398456907) CO2 TOTAL (test code 28 mmol/L 23-31 = 1295028471) AGAP (test code = 9 2-16 5001229010) BUN (test code = 18 mg/dL 7-23 7280187018) GLUCOSE (test code = 94 mg/dL 70-110 8255390555) CREATININE (test code 1.06 mg/dL 0.60-1.25 = 4441799230) TOTAL BILI (test code 0.4 mg/dL 0.1-1.1 = 5880683533) CALCIUM (test code = 8.7 mg/dL 8.6-10.6 4971627276) T PROTEIN (test code 7.7 g/dL 6.3-8.2 = 3863618042) ALBUMIN (test code = 4.0 g/dL 3.5-5.0 7011687940) ALK PHOS (test code = 121 U/L 34-122 9367778620) ALTv (test code = 24 U/L 5-50 2-6) AST(SGOT) (test code 26 U/L 13-40 = 9661916300) eGFR (test code = 74.6 mL/min/1.73m2 6741983168) SONALI (test code = SONALI) [employer] Rate (GFR) and Staging of Kidney Disease* + + +- +| GFR (mL/min/1.73 m2) ?| With Kidney Damage ?| ?Without Kidney Damage+ ------+ ----+ ------+| ?>90 ?| ?Stage one ?| ? Normal ?+ -+ + -+| ?60-89 ?| ?Stage two ?| ? Decreased GFR ? + + +- +| ?30-59 ?| ?Stage three ?| ? Stage three ? + + +- +| ?15-29 ?| ?Stage four ? | ? Stage four ?+ -+ + -+| ?<15 (or dialysis) ? ?| ?Stage five ? | ? Stage five ?+ -+ + -+ *Each stage assumes the associated GFR level [...] or urine or abnormalities in imaging tests). [facility] [id number] 04:59:43 Test Item Value Reference Range Interpretation Comments LIPASE (test code = 0897580151) 141 U/L 0-220 Lab Interpretation (test code = Normal 56366-8) [facility] WITH [id number] 04:46:45 Test Item Value Reference Range Interpretation Comments WBC (test code = 5.63 See_Comment [Automated 6690-2) message] The sy stem which generated this result transmitted reference range : 4.20 - 10.70 10*3/?L. The reference range was not used to interpret this result as normal/abnormal . RBC (test code = 3.44 See_Comment L [Automated 789-8) message] The sy stem which generated this result transmitted reference range : 4.26 - 5.52 10*6/?L. The reference range was not used to interpret this result as normal/abnormal . HGB (test code = 8.5 g/dL 12.2-16.4 L 718-7) HCT (test code = 26.6 % 38.4-49.3 L 4544-3) MCV (test code = 77.3 fL 81.7-95.6 L 787-2) MCH (test code = 24.7 pg 26.1-32.7 L 785-6) MCHC (test code = 32.0 g/dL 31.2-35.0 786-4) RDW-SD (test code = 37.4 fL 38.5-51.6 L 04796-4) RDW-CV (test code = 13.3 % 12.1-15.4 788-0) PLT (test code = 331 See_Comment H [Automated 777-3) message] The sy stem which generated this result transmitted reference range : 150 - 328 10*3/ ?L. The reference r parris was not used to interpret this result as normal/abnormal . MPV (test code = 8.9 fL 9.8-13.0 L 65376-8) NRBC/100 WBC (test 0.0 See_Comment [Automat ed code = 4890580497) message] The system which generated this result transmitted reference range : 0.0 - 10.0 /100 WBCs. The refer ence range was not u sed to interpret th is result as normal/abnormal . NRBC x10^3 (test code See_Comment [Auto mated = 2996895101) message] The s ysteUskape which generated this result transmitted reference range : 10*3/?L. The reference range was not used to interpret this result as normal/abnormal . GRAN MAT (NEUT) % 63.3 % (test code = 770-8) IMM GRAN % (test code 0.20 % = 7404585126) LYMPH % (test code = 16.2 % 736-9) MONO % (test code = 11.4 % 5905-5) EOS % (test code = 8.2 % 713-8) BASO % (test code = 0.7 % 706-2) GRAN MAT x10^3(ANC) 3.57 10*3/uL 1.99-6.95 (test code = 4531316301) IMM GRAN x10^3 (test 0.00-0.06 code = 3550197737) LYMPH x10^3 (test code 0.91 10*3/uL 1.09-3.23 L = 731-0) MONO x10^3 (test code 0.64 10*3/uL 0.36-1.02 = 742-7) EOS x10^3 (test code = 0.46 10*3/uL 0.06-0.53 711-2) BASO x10^3 (test code 0.04 10*3/uL 0.01-0.09 = 704-7) Lab Interpretation Abnormal (test code = 26590-1) [facility]ALLICOL[facility]AREJOSESITO [id number] 11:01:46 Test Item Value Reference Interpretation Comments Range TROPONIN I (test 0.001 ng/mL See_Comment [Automated code = 5490478643) message] The system which generated this result [...] biotin. Lab Interpretation Normal (test code = 49043-8) [facility]N-TERMINAL [id number] 10:58:44 Test Item Value Reference Range Interpretation Comments NT-proBNP (test code 72 pg/mL See_Comment [Autom ated = 0941882016) message] The system which generated this result transmitted reference range : <=125. The reference range was not used to interpret this result as normal/abnormal . SONALI (test code = SONALI) Biotin has been reported to cause a negative bias, interpret results relative to patient's use of biotin. Lab Interpretation Normal (test code = 98674-9) [facility]OL[facility] PANEL ([id number] 10:50:04 Test Item Value Reference Range Interpretation Comments NA (test code = 140 mmol/L 135-145 7988020080) K (test code = 4.3 mmol/L 3.5-5.0 6575050911) CL (test code = 105 mmol/L 98-108 1999360078) CO2 TOTAL (test code = 24 mmol/L 23-31 4685108957) AGAP (test code = 2-16 1406014102) BUN (test code = 15 mg/dL 7-23 1954854013) GLUCOSE (test code = 141 mg/dL 70-110 H 0282089835) CREATININE (test code = 0.72 mg/dL 0.60-1.25 6727878260) TOTAL BILI (test code = 0.3 mg/dL 0.1-1.4 5780336745) CALCIUM (test code = 8.6 mg/dL 8.6-10.6 1936133774) T PROTEIN (test code = 7.5 g/dL 6.3-8.2 0903321036) ALBUMIN (test code = 3.9 g/dL 3.5-5.0 3353746635) ALK PHOS (test code = 125 U/L 34-122 H 3449414857) ALTv (test code = 23 U/L 5-50 1742-6) AST(SGOT) (test code = 26 U/L 13-40 4927148010) eGFR (test code = mL/min/1.73m2 1662494240) SONALI (test code = SONALI) Association of [...] tests). Lab Interpretation Abnormal (test code = 91828-6) [facility] 10:49:44 Test Item Value Reference Range Interpretation Comments LIPASE (test code = 8314587470) 66 U/L 0-220 Lab Interpretation (test code = Normal 72806-5) [facility]ACT[facility] THRMPLAS [id number] 10:47:23 Test Item Value Reference Range Interpretation Comments APTT Patient (test See_Comment [Automat ed code = 3173-2) message] The system which generated this result transmitted reference range : 23 - 38 Seconds . The reference range was not used to interpr et this result as normal/abnormal . SONALI (test code = SONALI) The [facility] patient population mean normal value for aPTT is 30 seconds. Lab Interpretation Normal (test code = 74991-3) [facility] HospitalPROTHROMBIN TIME / [id number] 10:45:22 Test Item Value Reference Range Interpretation Comments [...] tions. Lab Interpretation (test Normal code = 05175-5) [facility] HospitalCB WITH [id number] 10:30:23 Test Item Value Reference Range Interpretation Comments [...] as normal/abnormal . HGB (test code = 10.9 g/dL 12.2-16.4 L 718-7) HCT (test code = 34.2 % 38.4-49.3 L 4544-3) MCV (test code = 80.1 fL 81.7-95.6 L 787-2) MCH (test code = 25.5 pg 26.1-32.7 L 785-6) MCHC (test code = 31.9 g/dL 31.2-35.0 786-4) RDW-SD (test code = 43.2 fL 38.5-51.6 79676-6) RDW-CV (test code = 14.7 % 12.1-15.4 788-0) PLT (test code = See_Comment [Automated 777-3) message] The sy stem which generated this result transmitted reference range : 150 - 328 10*3/ ?L. The reference r parris was not used to interpret this result as normal/abnormal . MPV (test code = 9.5 fL 9.8-13.0 L 60031-8) NRBC/100 WBC (test See_Comment [Automat ed code = 3315973003) message] The system which generated this result transmitted reference range : 0.0 - 10.0 /100 WBCs. The refer ence range was not u sed to interpret th is result as normal/abnormal . NRBC x10^3 (test code <0.01 See_Comment [Auto mated = 8308249040) message] The s ystem which generated this result transmitted reference range : 10*3/?L. The reference range was not used to interpret this result as normal/abnormal . GRAN MAT (NEUT) % 52.3 % (test code = 770-8) IMM GRAN % (test code 0.20 % = 5369737927) LYMPH % (test code = 26.7 % 736-9) MONO % (test code = 10.8 % 5905-5) EOS % (test code = 9.2 % 713-8) BASO % (test code = 0.8 % 706-2) GRAN MAT x10^3(ANC) 2.60 10*3/uL 1.99-6.95 (test code = 3710086633) IMM GRAN x10^3 (test <0.03 0.00-0.06 code = 4172393264) LYMPH x10^3 (test code 1.33 10*3/uL 1.09-3.23 = 731-0) MONO x10^3 (test code 0.54 10*3/uL 0.36-1.02 = 742-7) EOS x10^3 (test code = 0.46 10*3/uL 0.06-0.53 711-2) BASO x10^3 (test code 0.04 10*3/uL 0.01-0.09 = 704-7) Lab Interpretation Abnormal (test code = 65324-9) [facility] HospitalVALERIA [id number] 21:55:35 Test Item Value Reference Interpretation Comments Range TROPONIN I (test 0.003 ng/mL See_Comment [Automated code = 4728246779) message] The system which generated this result [...] biotin. Lab Interpretation Normal (test code = 01504-4) [facility] HospitalN-TERMINAL [id number] 21:52:38 Test Item Value Reference Range Interpretation Comments NT-proBNP (test code 89 pg/mL See_Comment [Autom ated = 8815547932) message] The system which generated this result transmitted reference range : <=125. The reference range was not used to interpret this result as normal/abnormal . SONALI (test code = SONALI) Biotin has been reported to cause a negative bias, interpret results relative to patient's use of biotin. Lab Interpretation Normal (test code = 58753-1) [facility]COMP[facility] MET[facility]OLIC PANEL ([id number])2022-04-05 21:44:14 Test Item Value Reference Range Interpretation Comments NA (test code = 137 mmol/L 135-145 7753171947) K (test code = 5.1 mmol/L 3.5-5.0 H 4945444115) CL (test code = 102 mmol/L 98-108 3945711302) CO2 TOTAL (test code = 24 mmol/L 23-31 5883809056) AGAP (test code = 2-16 3531959673) BUN (test code = 16 mg/dL 7-23 6327885410) GLUCOSE (test code = 108 mg/dL 70-110 0553281862) CREATININE (test code = 0.75 mg/dL 0.60-1.25 9984093907) TOTAL BILI (test code = 0.5 mg/dL 0.1-1.5 3876541259) CALCIUM (test code = 9.1 mg/dL 8.6-10.6 5895638139) T PROTEIN (test code = 8.5 g/dL 6.3-8.2 H 8773774016) ALBUMIN (test code = 4.6 g/dL 3.5-5.0 6626206755) ALK PHOS (test code = 152 U/L 34-122 H 1438440432) ALTv (test code = 20 U/L 5-50 1742-6) AST(SGOT) (test code = 26 U/L 13-40 4481444827) eGFR (test code = mL/min/1.73m2 1895853921) SONALI (test code = SONALI) Association of [...] tests). Lab Interpretation Abnormal (test code = 87065-7) [facility] 21:43:34 Test Item Value Reference Range Interpretation Comments LIPASE (test code = 3620160681) 48 U/L 0-220 Lab Interpretation (test code = Normal 20973-2) [facility] HospitalD-[id number] 21:41:12 Test Item Value Reference Interpretation Comments Range D-DIMER (test code = See_Comment H [Autom ated 4915411069) message] The system which generated this result [...] diagnosis. Lab Interpretation Abnormal (test code = 24246-8) [facility] WITH [id number] 21:32:30 Test Item Value Reference Range Interpretation Comments WBC (test code = See_Comment [Automated 2790-2) message] The sy stem which generated this result transmitted reference range : 4.20 - 10.70 10*3/?L. The reference range was not used to interpret this result as normal/abnormal . RBC (test code = See_Comment [Automated 506-8) message] The sy stem which generated this [...] (test code = 37.8 fL 38.5-51.6 L 98755-7) RDW-CV (test code = 13.2 % 12.1-15.4 788-0) PLT (test code = See_Comment [Automated 777-3) message] The sy stem which generated this result transmitted reference range : 150 - 328 10*3/ ?L. The reference r parris was not used to interpret this result as normal/abnormal . MPV (test code = 9.6 fL 9.8-13.0 L 50131-9) NRBC/100 WBC (test See_Comment [Automat ed code = 6453682353) message] The system which generated this result transmitted reference range : 0.0 - 10.0 /100 WBCs. The refer ence range was not u sed to interpret th is result as normal/abnormal . NRBC x10^3 (test code <0.01 See_Comment [Auto mated = 7174366826) message] The s ystem which generated this result transmitted reference range : 10*3/?L. The reference range was not used to interpret this result as normal/abnormal . GRAN MAT (NEUT) % 70.3 % (test code = 770-8) IMM GRAN % (test code 0.30 % = 3155689027) LYMPH % (test code = 14.7 % 736-9) MONO % (test code = 8.7 % 5905-5) EOS % (test code = 5.4 % 713-8) BASO % (test code = 0.6 % 706-2) GRAN MAT x10^3(ANC) 4.45 10*3/uL 1.99-6.95 (test code = 7712907583) IMM GRAN x10^3 (test <0.03 0.00-0.06 code = 5061903546) LYMPH x10^3 (test code 0.93 10*3/uL 1.09-3.23 L = 731-0) MONO x10^3 (test code 0.55 10*3/uL 0.36-1.02 = 742-7) EOS x10^3 (test code = 0.34 10*3/uL 0.06-0.53 711-2) BASO x10^3 (test code 0.04 10*3/uL 0.01-0.09 = 704-7) Lab Interpretation Abnormal (test code = 25195-4) [facility] HospitalWOUND CULTURE + GRAM [id number] 17:23:00 Test Item Value Reference Range Interpretation Comments CULTURE (BEAKER) A 3+ Beta-hem olytic (test code = streptococcus g roup 1095) F, by serologic al grouping GRAM STAIN 4+ WBCs RESULT (BEAKER) (test code = 1123) GRAM STAIN 2+ gram positive RESULT (BEAKER) rods (test code = 557122) GRAM STAIN 4+ gram positive RESULT (BEAKER) cocci in pairs (test code = and clusters 235927) [id number] 04:14:00 Test Item Value Reference Range Interpretation Comments MAGNESIUM (BEAKER) (test code = 2.2 mg/dL 1.6-2.6 627) BASIC METABOLIC [id number] 04:14:00 Test Item Value Reference Range Interpretation [...] S NOT APPLICABLE FOR DIALYSIS PATIEN TS. CBC W/PLT COUNT & AUTO [id number] 03:55:00 Test Item Value Reference Range Interpretation [...] = 2801) RAD, CHEST, 1 VIEW, NON [id number] 23:11:00Reason for exam:->new admit hx asthma; high [...] intact. IMPRESSION: No acute cardiopulmonary abnormality. Signed: [facility] Verified Date/Time: 05/04/2019 23:11:15 [id number] 21:06:00 Test Item Value Reference Range Interpretation Comments PHOSPHORUS (BEAKER) (test code = 2.1 mg/dL 2.3-4.7 L 604) [id number] 21:06:00 Test Item Value Reference Range Interpretation Comments MAGNESIUM (BEAKER) (test code = 2.1 mg/dL 1.6-2.6 627) COMPREHENSIVE METABOLIC [id number] 21:06:00 Test Item Value Reference Range Interpretation [...] 347) EGFR (BEAKER) (test 96 mL/min/1.73 ESTIMA ERICH GFR IS code = 1092) sq m NOT ACCURATE CREATININE CLEARANCE IN PREDICTING GLOMERULAR FILTRATION RATE . ESTIMATED GFR I S NOT APPLICABLE FOR DIALYSIS PATIEN TS. [id number] 21:00:00 Test Item Value Reference Range Interpretation [...] thrombosis and/or pulmonary embolus.HIGH RISK: Target INR is 2.5-3.5 for patients wiht mechanical heart valves.CBC W/PLT COUNT & AUTO [id number] 20:56:00 Test Item Value Reference Range Interpretation [...] % 0-1 PERCENT (BEAKER) (test code = 2397)
[2023-05-09 16:23] LABS: Hematocrit 26.5 % (39.6-49.0); Lymphocytes % 14.9 % (15.3-44.8); MCV 68.1 fL (80-100); MPV 7.5 fL (7.6-11.3); RBC Red Blood Cell Count 3.89 M/uL (4.33-5.43)
--- NOTE | 2023-05-09 16:34 | RAD REPORT ---
[facility] CLINICAL HISTORY: chest pain COMPARISON: Chest Single View dated 04/14/2022; CHEST SINGLE VIEW dated 09/30/2014 TECHNIQUE: Portable AP view of the chest. FINDINGS: The lungs are clear. No pneumothorax or effusion. The cardiomediastinal contours are unre markable. IMPRESSION: No acute cardiopulmonary process.
[2023-05-09 16:35] LABS: Potassium 4.2 mEq/L (3.5-5.1)
--- NOTE | 2023-05-09 17:04 | EDPHYS ---
Physician Documentation [facility] Name: John Hendrickson Age: 48 yrs Sex: Male : 1975 Arrival Date: 05/09/2023 Time: 15:30 Bed IW1 Private MD: ED Physician Jamal Singer HPI: 05/09 15:37 This 48 yrs old Male presents to ER via EMS with complaints of Chest Pain > 30 bs3 y/o. 15:37 15-emgm-tzp-year-old male history of asthma, hypertension presents with chest pain that bs3 started last night described as a pressure-like pain nonradiating no associated symptoms nothing makes it better or worse he notes multiple similar episodes. He did not take anything before he got here but EMS gave him aspirin 324 he denies a ripping or or tearing. No numbness tingling or weakness in his lower extremities no shortness of breath no leg swelling no history of PE or DVT. Historical: - Allergies: 15:34 Erythromycin; if IV, hives; ss 15:34 Sulfa (Sulfonamide Antibiotics); ss - PMHx: 15:34 Asthma; ss - PSHx: 15:34 left knee; ss ROS: 15:37 Constitutional: Negative for fever, chills bs3 15:37 All other systems are negative. Exam: 15:37 Constitutional: This is a well developed, well nourished patient who is awake, alert, bs3 and in no acute distress. Head/Face: Normocephalic, atraumatic. Eyes: Pupils equal round and reactive to light, extra-ocular motions intact. Lids and lashes normal. ENT: mmm, no posterior phyarngeal erythema Neck: Trachea midline, no thyromegaly, no neck stiffness Chest/axilla: Normal chest wall appearance and motion. Nontender with no deformity. No lesions are appreciated. Cardiovascular: Regular rate and rhythm with a normal S1 and S2. symmetric pulses in upper extremities Respiratory: Lungs have equal breath sounds bilaterally, clear to auscultation, no respiratory distress Abdomen/GI: Soft, non-tender, no rebound or guarding Skin: Warm, dry with normal turgor. Normal color with no rashes, no lesions, and no evidence of cellulitis. MS/ Extremity: Pulses equal, no cyanosis. Neurovascular intact. Full, normal range of motion. Neuro: Awake and alert, GCS 15, oriented to person, place, time, and situation. Cranial nerves II-XII grossly intact. Motor strength 5/5 in all extremities. Sensory grossly intact. Psych: Awake, alert, with orientation to person, place and time. Behavior, mood, and affect are within normal limits. Vital Signs: 15:38 BP 149 / 80; Pulse 60; Resp 20; Temp 98; Pulse Ox 99% ; ss MDM: 15:33 Patient medically screened. bs3 15:37 Data reviewed: vital signs, nurses notes. ED course: 48-year-old with atypical chest bs3 pain history and physical are not consistent with PE or dissection he is PE RC negative will rule out ACS given the duration of symptoms a single troponin will rule this out per EMS his EKG was normal we will repeat here will rule out pneumothorax and pneumonia. 16:00 ED course: EKG is normal sinus rhythm at [address] elevation or depression QTc 399 as bs3 interpreted by myself. 17:01 ED course: per Dr. Zachery Garcia baseline hemaglobin has been in between 7-8 for bs3 several months. Pt advised f/u with pcp for further workup, this is not an acute finding. . 05/09 16:09 Order name: Basic Metabolic Panel; Complete Time: 16:38 EDIL 05/09 16:09 Order name: Troponin High Sensitivity; Complete Time: 16:38 EDIL 05/09 16:09 Order name: CBC with Automated Diff; Complete Time: 16:38 EDIL 05/09 15:51 Order name: Chest Single View; Complete Time: 16:38 EDIL 05/09 15:37 Order name: EKG; Complete Time: 16:11 bs3 05/09 15:37 Order name: Cardiac monitoring; Complete Time: 15:53 bs3 05/09 15:37 Order name: EKG - Nurse/Tech; Complete Time: 15:53 bs3 05/09 15:37 Order name: IV Saline Lock; Complete Time: 15:53 bs3 05/09 15:37 Order name: Labs collected and sent; Complete Time: 15:53 bs3 05/09 15:37 Order name: O2 Per Protocol; Complete Time: 15:53 bs3 Administered Medications: No medications were administered Disposition Summary: 05/09/23 17:04 Discharge Ordered Location: Home bs3 Problem: new bs3 Symptoms: have improved bs3 Condition: Stable bs3 Diagnosis - Chest pain, unspecified bs3 Followup: bs3 - With: Private Physician - When: 1 week - Reason: Re-evaluation by your physician Discharge Instructions: - Discharge Summary Sheet bs3 - Nonspecific Chest Pain, Adult bs3 Forms: - Medication Reconciliation Form bs3 - Thank You Letter bs3 - Antibiotic Education bs3 - Prescription Opioid Use bs3 - [employer]_Portal_Instructions_BRZ.htm bs3 Signatures: Dispatcher [employer] EDMS Ana Hernandez, TIFFANY RN Jamal Marcum MD MD bs3 Corrections: (The following items were deleted from the chart) 16:13 16:10 Chest Single View+RAD.RAD.BRZ ordered. EDMS EDMS 16:27 16:10 BASIC METABOLIC PANEL+C.LAB.BRZ ordered. EDMS EDMS 16:27 16:10 CBC+H.LAB.BRZ ordered. EDMS EDMS 16:27 16:10 Troponin High Sensitivity+C.LAB.BRZ ordered. EDMS EDMS
--- NOTE | 2023-05-09 17:04 | ER ---
Nurse's Notes [facility] Name: John Hendrickson Age: 48 yrs Sex: Male : 1975 Arrival Date: 05/09/2023 Time: 15:30 Bed IW1 Private MD: Diagnosis: Chest pain, unspecified Presentation: 05/09 15:32 Chief complaint: EMS states: Chest pain that began last night. VS WNL. Coronavirus ss screen: Client denies travel out of the [place] in the last 14 days. Ebola Screen: Patient denies exposure to infectious person. Patient denies travel to an Ebola-affected area in the 21 days before illness onset. Initial Sepsis Screen: Does the patient meet any 2 criteria? No. Patient's initial sepsis screen is negative. Does the patient have a suspected source of infection? No. Patient's initial sepsis screen is negative. Risk Assessment: Do you want to hurt yourself or someone else? Patient reports no desire to harm self or others. Onset of symptoms was May 08, 2023. 15:32 Method Of Arrival: EMS: [facility] [address] 15:32 Acuity: JASVIR 3 ss 15:36 Care prior to arrival: Medication(s) given: ASA, 325 mg, x 1, IV initiated. 20 GA, in ss the right forearm, Glucose check: 159. Historical: - Allergies: 15:34 Erythromycin; if IV, hives; ss 15:34 Sulfa (Sulfonamide Antibiotics); ss - PMHx: 15:34 Asthma; ss - PSHx: 15:34 left knee; ss Screenin:19 [facility] ED Fall Risk Assessment (Adult) History of falling in the last 3 months, kb3 including since admission No falls in past 3 months (0 pts). Abuse screen: Denies threats or abuse. Denies injuries from another. Nutritional screening: No deficits noted. Tuberculosis screening: Never had TB. Assessment: 17:19 General: Appears in no apparent distress. comfortable, Behavior is calm, cooperative. kb3 Neuro: Level of Consciousness is awake, alert, obeys commands. Respiratory: Airway is patent Respiratory effort is even, unlabored, Respiratory pattern is regular, symmetrical. Vital Signs: 15:38 BP 149 / 80; Pulse 60; Resp 20; Temp 98; Pulse Ox 99% ; ss ED Course: 15:32 Patient arrived in ED. ss 15:33 Jamal Singer MD is Attending Physician. bs3 15:34 Triage completed. ss 15:34 Arm band placed on right wrist. ss 16:05 Chest Single View In Process Unspecified. EDMS 17:19 Patient has correct armband on for positive identification. Client placed on continuous kb3 cardiac and pulse oximetry monitoring. NIBP monitoring applied. 17:19 No provider procedures requiring assistance completed. IV discontinued, intact, kb3 bleeding controlled, No redness/swelling at site. Pressure dressing applied. Patient maintains SpO2 saturation greater than 95% on room air. Administered Medications: No medications were administered Medication: 17:19 VIS not applicable for this client. kb3 Outcome: 17:04 Discharge ordered by . bs3 17:19 Discharged to home ambulatory. kb3 17:19 Condition: good 17:19 Discharge instructions given to patient, Instructed on discharge instructions, follow up and referral plans. medication usage, Demonstrated understanding of instructions, follow-up care, medications. 17:21 Patient left the ED. kb3 Signatures: Dispatcher [employer] EDMD Ana Hernandez, RN RN Marisel Noble RN RN kb3 Jamal Singer MD MD bs3 Corrections: (The following items were deleted from the chart) 15:39 15:36 Care prior to arrival: Medication(s) given: ASA, 325 mg, x 1, IV initiated. 20 ss GA, in the right forearm, ss
[2023-05-09 18:04] VITALS: BP 149/80; TEMP 98; O2SAT 99
--- NOTE | 2023-05-10 18:10 | EKG ---
Test Date: 2023-05-09 Test Time: 15:45:54 Terrazzo Polisher: NAVYA MEASUREMENT RESULTS: Intervals: Rate: 59 AZ: 158 QRSD: 90 QT: 404 QTc: 399 [place]: P: 47 AZ: 158 QRS: 66 T: 65 INTERPRETIVE STATEMENTS: Sinus bradycardia Otherwise normal ECG Compared to ECG 04/14/2022 13:13:02 Left ventricular hypertrophy no longer present Early repolarization no longer present Electronically Signed On 05-10-23 18:08:52 CDT by Junior Galdamez
== END 2023-05-09 17:21 | disposition home or self-care (01) ==
LOC: ER 15:30
DX: R07.9 Chest pain, unspecified (principal)
CPT/HCPCS: 36415; 71045; 80048; 84484; 85025; 93005